=== PATIENT | male | born 1955 | race American Indian/Alaskan Native ===

== ENCOUNTER 2016-07-22 10:25 | Emergency (ER) | payer MEDICAID ==
[2016-07-22 11:05] VITALS: BP 142/83
[2016-07-22 11:43] LABS: Basophils % (Auto) 0.7 % (0.0-1.8); Eosinophils % (Auto) 0.1 % (0.0-4.3); Hematocrit 43.1 % (35.5-45.6); Hemoglobin 14.7 gm/dl (11.8-15.2); Mean Corpuscular HGB Conc 34 % (32-34); Mean Corpuscular Hemoglobin 34 pg (28-32); Mean Corpuscular Volume 99 fl (84-94); Platelet Count 167 K/mm3 (140-440); Red Blood Count 4.37 M/mm3 (3.65-5.03); Red Cell Distribution Width 13.3 % (13.2-15.2); White Blood Count 8.4 K/mm3 (4.5-11.0)
--- NOTE | 2016-07-22 11:47 | XRay Report ---
CHEST TWO VIEWS: 07/22/16 10:25:00 CLINICAL: Chest pain and productive cough. COMPARISON: None FINDINGS: Normal heart and pulmonary vasculature. The lungs are normally expanded and clear.The bones and soft tissues are unremarkable. IMPRESSION: Normal chest.
[2016-07-22 11:59] LABS: Anion Gap 21 mmol/L; BUN/Creatinine Ratio 10.47; Blood Urea Nitrogen 22 mg/dL (9-20); Carbon Dioxide 22 mmol/L (22-30); Chloride 88.5 mmol/L (98-107); Glucose 232 mg/dL (75-100); Potassium 4.6 mmol/L (3.6-5.0); Sodium 127 mmol/L (137-145)
== END 2016-07-23 01:00 | disposition left against medical advice (07) ==
LOC: ED 10:25
DX: R11.10 Vomiting, unspecified (principal); R06.02 Shortness of breath; R05 Cough; R07.9 Chest pain, unspecified; Z53.21 Procedure and treatment not carried out due to patient leaving prior to being seen by health care provider
CPT/HCPCS: 36415; 71020; 80048; 84484; 85025; 93005; 93010

== ENCOUNTER 2016-09-05 09:32 | Outpatient (CLI) | payer MEDICAID ==
--- NOTE | 2016-09-06 09:58 | Vascular Lab Report ---
LOWER EXTREMITY VENOUS DUPLEX: REASON FOR EXAM: Bilateral leg edema. COMMENTS ON THE RIGHT: All veins visualized are freely compressible without evidence of internal echogenicity. Flow is spontaneous and phasic throughout. COMMENTS ON THE LEFT: All veins visualized are freely compressible without evidence of internal echogenicity. Flow is spontaneous and phasic throughout. IMPRESSION: No evidence of acute or chronic deep venous thrombosis in either lower extremity.
== END 2016-09-05 09:33 | disposition home or self-care (01) ==
LOC: VAS 09:32
PROVIDERS: ATTEND Internal Medicine Nephrology
DX: R60.0 Localized edema (principal)
CPT/HCPCS: 93970

== ENCOUNTER 2017-02-11 02:36 | Emergency (ER) | payer MEDICAID ==
[2017-02-11] MEDS ORDERED: PERCOCET 5/325 PO ONE (06:57)
[2017-02-11] MEDS ORDERED: PERCOCET 5/325 ONE (07:02)
--- NOTE | 2017-02-11 07:34 | XRay Report ---
FINAL REPORT EXAM: XR ANKLE 2V RT HISTORY: fall TECHNIQUE: AP and lateral views of the right ankle were obtained. FINDINGS: There is an acute obliquely oriented fracture of the lateral malleolus seen best on the lateral view. There is also a comminuted mildly displaced fracture of the distal diametaphyseal junction of the tibia with mild medial angulation of the distal fracture in. The ankle mortise appears intact. Is a small plantar calcaneal spur. There is soft tissue swelling around the ankle. IMPRESSION: Acute nondisplaced obliquely oriented fracture of the lateral malleolus. Comminuted mildly displaced fracture of the distal diametaphyseal junction of the tibia with medial angulation of the distal fracture end. A right tibia-fibula film series recommended to exclude a more proximal fracture of the right lower extremity.
--- NOTE | 2017-02-11 07:36 | Emergency Department Report ---
Chief Complaint: Extremity Injury, Lower Stated Complaint: FALL Time Seen by Provider: 02/11/17 06:50 - HPI History of Present Illness: Patient here reported that he fell this evening and is complaining a right ankle pain. He said pain is 10 out of 10. Patient is diabetic with high blood pressure. - ROS Review of Systems: All systems are negative unless stated in HPI above. - Exam Vital Signs: Vital Signs 02/11/17 02/11/17 03:12 03:40 Temperature 98.8 F 98.8 F Pulse Rate 111 H 110 H Respiratory 18 16 Rate Blood Pressure 158/86 158/86 O2 Sat by Pulse 94 98 Oximetry Physical Exam: Gen.: This is a 62-year-old male well-nourished well-developed appears to be in pain to right leg. Extremity: +2 bounding pulses 2 DP and PT. Mild swelling around ankle and tenderness to palpate. Patient with pain with range of motion. No signs of compartment syndrome at present. MSE screening note: Focused history and physical exam performed. Due to findings the following was ordered:see MDM ED Medical Decision Making - Medical Decision Making MDM: Patient screened by provider in triage area. Appropriate protocol initiated and patient to be seen in main . X-ray tib-fib showed patient with fracture awaiting radiology report. Patient given Percocet 5/325 2 tablets emergency room for pain. ED [place] [facility] [place] Condition: Stable Referrals: PRIMARY CARE, [Primary Care Provider] - 3-5 Days
[2017-02-11] MEDS ORDERED: ZOFRAN IM ONE (08:12)
[2017-02-11] MEDS ORDERED: TORADOL IM ONE (08:12)
[2017-02-11] MEDS ORDERED: DILAUDID IM ONE (08:12)
--- NOTE | 2017-02-11 08:22 | XRay Report ---
FINAL REPORT EXAM: XR TIBIA FIBULA 2V RT HISTORY: rt ankle fracture.Rt tib/fib radiologist recom TECHNIQUE: Right leg, two views PRIORS: None. FINDINGS: There is an oblique fracture involving the proximal fibula. This involves the meta diaphyseal junction and is mildly displaced laterally. There is an oblique fracture involving the distal tibial shaft which is mildly displaced posterolaterally. There also an oblique fracture through the distal fibula. IMPRESSION: Mildly displaced fracture of proximal fibular shaft. Mildly displaced fracture of distal tibial shaft. Nondisplaced fracture of distal fibula.
--- NOTE | 2017-02-11 08:31 | Emergency Department Report ---
ED Lower Extremity HPI - General Chief Complaint: Extremity Injury, Lower Stated Complaint: FALL Time Seen by Provider: 02/11/17 07:38 Source: patient Mode of arrival: Wheelchair Limitations: No Limitations - History of Present Illness MD Complaint: leg injury - Related Data Home Medications Medication Instructions Recorded Confirmed Last Taken Diltiazem Cd [Cardizem CD] 320 mg PO QDAY 03/12/14 03/20/14 03/20/14 Insulin Detemir [Levemir Flexpen] 30 unit SQ BID 03/12/14 03/20/14 03/19/14 cloNIDine [Catapres] 0.1 mg PO BID 03/12/14 03/20/14 03/20/14 Allergies Allergy/AdvReac Type Severity Reaction Status Date / Time No Known Drug Allergies Allergy n/a Verified 03/20/14 08:26 ED Review of Systems ROS: Stated complaint: FALL Other details as noted in HPI ED Past Medical Hx - Past Medical History Previous Medical History?: Yes Hx Hypertension: Yes (2008) Hx Diabetes: Yes (IDDM 2008) - Surgical History Past Surgical History?: No - Social History Smoking Status: Never Smoker Substance Use Type: None - Medications Home Medications: Home Medications Medication Instructions Recorded Confirmed Last Taken Type Diltiazem Cd [Cardizem CD] 320 mg PO QDAY 03/12/14 03/20/14 03/20/14 History Insulin Detemir [Levemir Flexpen] 30 unit SQ BID 03/12/14 03/20/14 03/19/14 History cloNIDine [Catapres] 0.1 mg PO BID 03/12/14 03/20/14 03/20/14 History ED Physical Exam - General Limitations: No Limitations ED Course Vital Signs 02/11/17 02/11/17 02/11/17 03:12 03:40 07:28 Temperature 98.8 F 98.8 F Pulse Rate 111 H 110 H Respiratory 18 16 18 Rate Blood Pressure 158/86 158/86 O2 Sat by Pulse 94 98 Oximetry Critical care attestation.: If time is entered above; I have spent that time in minutes in the direct care of this critically ill patient, excluding procedure time. ED Disposition Disposition: ELOPED Condition: Stable Referrals: PRIMARY CARE, [Primary Care Provider] - 3-5 Days
--- NOTE | 2017-02-11 08:31 | Emergency Department Report ---
HPI - General Chief Complaint: Extremity Injury, Lower Time Seen by Provider: 02/11/17 07:38 - HPI HPI: Room 37 The patient is a 62-year-old male presenting with a chief complaint of right leg pain after fall. The patient states this morning at 01:30 he tripped and fell down approximately 5 stairs. Patient complains of pain in his right lower extremity and low back. Patient denies loss of consciousness. The patient currently gives his pain a score of 10/10 Location: [see above] Duration: Constant since 01:30 Quality: Pain Severity:10 Modifying factors: Movement increases pain Context: [see above] Mode of transportation: [not driving] ED Past Medical Hx - Past Medical History Previous Medical History?: Yes Hx Hypertension: Yes (2008) Hx Diabetes: Yes (IDDM 2008) - Surgical History Past Surgical History?: No - Family History Family history: no significant - Social History Smoking Status: Never Smoker Substance Use Type: None - Medications Home Medications: Home Medications Medication Instructions Recorded Confirmed Last Taken Type Diltiazem Cd [Cardizem CD] 320 mg PO QDAY 03/12/14 03/20/14 03/20/14 History Insulin Detemir [Levemir Flexpen] 30 unit SQ BID 03/12/14 03/20/14 03/19/14 History cloNIDine [Catapres] 0.1 mg PO BID 03/12/14 03/20/14 03/20/14 History oxyCODONE /ACETAMINOPHEN [Percocet 1 - 2 tab PO Q6HR PRN #30 tablet 02/11/17 Unknown Rx 5/325] ED Review of Systems ROS: Stated complaint: FALL Other details as noted in HPI Comment: All other systems reviewed and negative Constitutional: denies: chills, fever Eyes: denies: eye pain, eye discharge, vision change ENT: denies: ear pain, throat pain Respiratory: denies: cough, shortness of breath, wheezing Cardiovascular: denies: chest pain, palpitations Endocrine: no symptoms reported Gastrointestinal: denies: abdominal pain, nausea, diarrhea Genitourinary: denies: urgency, dysuria Musculoskeletal: back pain, arthralgia, myalgia Skin: denies: rash, lesions Neurological: denies: headache, weakness, paresthesias Psychiatric: denies: anxiety, depression Hematological/Lymphatic: denies: easy bleeding, easy bruising Physical Exam - Physical Exam Vital Signs: Vital Signs 02/11/17 02/11/17 02/11/17 03:12 03:40 07:28 Temperature 98.8 F 98.8 F Pulse Rate 111 H 110 H Respiratory 18 16 18 Rate Blood Pressure 158/86 158/86 O2 Sat by Pulse 94 98 Oximetry Physical Exam: GENERAL: The patient is well-developed well-nourished male lying on stretcher not appearing to be in acute distress. [] HEENT: Normocephalic. Atraumatic. NECK: Trachea midline CHEST/LUNGS: There is no respiratory distress noted. HEART/CARDIOVASCULAR: Regular. There is no tachycardia. Dopplerable right DP. Normal capillary refill SKIN: There is an abrasion to the distal right veloz but no lacerations. There is no diaphoresis. NEURO: The patient is awake, alert, and oriented. The patient is cooperative. Patient able to move toes of right foot without difficulty. Patient has sensation to light touch of the right foot MUSCULOSKELETAL: There is tenderness to palpation of the distal right lower extremity ED Course Vital Signs 02/11/17 02/11/17 02/11/17 03:12 03:40 07:28 Temperature 98.8 F 98.8 F Pulse Rate 111 H 110 H Respiratory 18 16 18 Rate Blood Pressure 158/86 158/86 O2 Sat by Pulse 94 98 Oximetry ED Medical Decision Making - Radiology Data Radiology results: image reviewed (right ankle x-ray, right tib-fib x-ray, lumbar spine x-ray) interpreted by me: Right ankle x-ray spiral fracture distal tibia and fibula Right tib-fib [id number] fibula fracture. Spiral fracture of the distal tibia and fibula Lumbar spine x-ray-no acute fracture - Differential Diagnosis ankle sprain, ankle fracture, lumbar fracture, lumbar strain Critical care attestation.: If time is entered above; I have spent that time in minutes in the direct care of this critically ill patient, excluding procedure time. ED Disposition Clinical Impression: [place] fracture of right lower extremity, Acute right ankle pain Disposition: TO HOME OR SELFCARE Is pt being admited?: No Does the pt Need Aspirin: No Condition: Stable Instructions: Ankle Fracture (ED) Additional Instructions: Return to the emergency department immediately should you develop worsening symptoms, fever, inability to tolerate food or liquid or any other concerns. Prescriptions: oxyCODONE /ACETAMINOPHEN [Percocet 5/325] 1 - 2 tab PO Q6HR PRN #30 tablet PRN Reason: Pain Referrals: PRIMARY CARE, [Primary Care Provider] - 3-5 Days JOHNATHON CA MD [Staff Physician] - [facility] (Dr. Ca is an orthopedic surgeon. Please follow up with him for further evaluation) Time of Disposition: 09:27
--- NOTE | 2017-02-11 09:33 | XRay Report ---
LUMBOSACRAL SPINE, 3 VIEWS: History: Back pain after fall. Findings: The vertebral bodies, disk spaces and posterior elements are intact. No compression deformity or malalignment. Mild multilevel degenerative endplate changes and facet arthropathy are identified. The SI joints are symmetric and unremarkable. Impression: Mild lumbar spondylosis. No acute injury is appreciated.
[2017-02-11 12:05] VITALS: BP 154/82
== END 2017-02-11 12:03 | disposition home or self-care (01) ==
LOC: ED 02:36
DX: S82.861A Displaced Maisonneuve's fracture of right leg, initial encounter for closed fracture (principal); M54.5 Low back pain; I10 Essential (primary) hypertension; E11.9 Type 2 diabetes mellitus without complications; Z79.4 Long term (current) use of insulin; W01.0XXA Fall on same level from slipping, tripping and stumbling without subsequent striking against object, initial encounter; Y93.89 Activity, other specified; Y92.89 Other specified places as the place of occurrence of the external cause; Y99.8 Other external cause status
CPT/HCPCS: 29505; 72100; 73590; 73600; 96372; 99283; J1170; J1885; J2405

== ENCOUNTER 2017-02-19 09:49 | Inpatient (IN) | payer MEDICAID ==
[~2017-02-19 09:49] MED LIST: ANCEF/STERILE WATER 2 GM/20 ML IV NR; PEPCID PO NR; SUBLIMAZE IV ONE; VERSED IV NR
[2017-02-19 10:52] LABS: Basophils % (Auto) 0.7 % (0.0-1.8); Eosinophils % (Auto) 1.4 % (0.0-4.3); Hemoglobin 15.4 gm/dl (11.8-15.2); Mean Corpuscular HGB Conc 34 % (32-34); Mean Corpuscular Hemoglobin 33 pg (28-32); Mean Corpuscular Volume 99 fl (84-94); Platelet Count 289 K/mm3 (140-440); Red Blood Count 4.65 M/mm3 (3.65-5.03); Red Cell Distribution Width 13.5 % (13.2-15.2); White Blood Count 6.8 K/mm3 (4.5-11.0)
[2017-02-19] MEDS: NACL 0.9% 1000 ML 1,000 ML IV SCH (10:58)
--- NOTE | 2017-02-19 10:58 | Anesthesia Consultation ---
Anesthesia Consult and Med Hx Date of service: 02/19/17 - Airway Anesthetic Teeth Evaluation: Dentures ROM Head & Neck: Adequate Mental/Hyoid Distance: Adequate Mallampati Class: Class III (small mouth opening) Intubation Access Assessment: Possibly Difficult - Pulmonary Exam CTA: Yes - Cardiac Exam Cardiac Exam: RRR - Pre-Operative Health Status ASA Pre-Surgery Classification: ASA3 Proposed Anesthetic Plan: General Nerve Block: Pop - Pulmonary Hx Smoking: Yes (STOPPED X 23 YRS , 1 PPD X 22 YRS) Hx Sleep Apnea: No (ANGUS PRE SCREEN HIGH RISK) - Cardiovascular System Hx Hypertension: Yes (2008) - Central Nervous System Hx Back Pain: Yes Hx Psychiatric Problems: No - Endocrine Hx Insulin Dependent Diabetes: Yes - Other Systems Hx Substance Use: Yes (CLEAN X 30 YRS) Hx Cancer: No Hx Obesity: Yes (BMI 35.4)
--- NOTE | 2017-02-19 10:58 | Anesthesia Day of Surgery ---
Anesthesia Day of Surgery - Day of Surgery Patient Examined: Yes Patient H&P Reviewed: Yes Patient is NPO: Yes
[2017-02-19] MEDS ORDERED: ZOFRAN IV PRN ×2 (10:59→21:19)
[2017-02-19] MEDS ORDERED: DIPRIVAN 10 MG/ML IV ONE (11:00)
[2017-02-19] MEDS ORDERED: XYLOCAINE MPF 2% ONE (11:00)
[2017-02-19] MEDS ORDERED: XYLOCAINE 1% 20 mL ONE (11:04)
[2017-02-19] MEDS ORDERED: MARCAINE-EPI/PF 0.5%-1:200,000 INFILTRATI ONE (11:04)
[2017-02-19] MEDS ORDERED: DECADRON ONE (11:04)
[2017-02-19 11:14] LABS: Albumin 3.7 g/dL (3.9-5); Albumin/Globulin Ratio 0.9 %; Bilirubin,Total 0.7 mg/dL (0.1-1.2); Calcium 9.3 mg/dL (8.4-10.2); Chloride 96.1 mmol/L (98-107); Potassium 5.7 mmol/L (3.6-5.0); Total Protein 7.8 g/dL (6.3-8.2)
[2017-02-19] MEDS ORDERED: SUBLIMAZE IV ONE (12:00)
--- NOTE | 2017-02-19 12:14 | History and Physical Report ---
History of Present Illness Date of examination: 02/19/17 Chief complaint: right leg pain History of present illness: 62 y/o male with c/o right leg pain and swelling after falling down stairs last week at home, he was seen in the ER where xrays taken revealed a displaced distal third tibia-fibula fracture....no other c/o's noted Medications and Allergies Allergies Allergy/AdvReac Type Severity Reaction Status Date / Time No Known Drug Allergies Allergy n/a Verified 03/20/14 08:26 Home Medications Medication Instructions Recorded Confirmed Last Taken Type Diltiazem Cd [Cardizem CD] 320 mg PO QDAY 03/12/14 02/19/17 02/19/17 07:30 History Insulin Detemir [Levemir Flexpen] 30 unit SQ BID 03/12/14 02/19/17 02/18/17 18: 00 History cloNIDine [Catapres] 0.1 mg PO BID 03/12/14 02/19/17 02/19/17 07:30 History oxyCODONE /ACETAMINOPHEN [Percocet 1 - 2 tab PO Q6HR PRN #30 tablet 02/11/1701/2802/19/17 01:00 Rx 5/325] Aspirin [Adult Low Dose Aspirin EC] 81 mg PO DAILY 02/14/17 02/19/17 02/14/17 11 :00 History Simvastatin [Zocor TAB] 20 mg PO DAILY 02/19/17 02/19/17 02/19/17 07:30 History glipiZIDE [Glipizide] 10 mg PO BID 02/19/17 02/19/17 02/19/17 07:30 History Active Meds: Active Medications Cefazolin Sodium (Ancef/Sterile Water 2 Gm/20 Ml) 2 gm IV PREOP NR Stop: 02/19/17 23:59 Hydromorphone HCl (Dilaudid) 0.5 mg IV Q10MIN PRN PRN Reason: Pain , Severe (7-10) Stop: 02/22/17 11:00 Sodium Chloride (Nacl 0.9% 1000 Ml) 1,000 mls @ 75 mls/hr IV DIRECT TIGIST Last Admin: 02/19/17 10:58 Dose: 75 mls/hr Midazolam HCl (Versed) 2 mg IV PREOP NR Stop: 02/19/17 23:59 Last Admin: 02/19/17 11:27 Dose: 2 mg Physical Examination - Physical exam Narrative exam: At the right leg - moderate swelling, moderate deformity distal portion, skin intact, decreased active ROM , good capillary refill Eyes: PERRL ENT: Positive: clear oral mucosa Respiratory effort: normal Respiratory: bilateral: CTA Rhythm: regular Heart Sounds: Positive: S1 & S2 General gastrointestinal: Positive: soft, non-tender, non-distended, normal bowel sounds Integumentary: clear, warm, dry Neurologic: Positive: CNII-XII intact, moves all extremities, gait normal. Negative: focal deficits Results - Labs Result Diagrams: 02/19/17 10:47 02/19/17 10:47 Labs: Abnormal lab results 02/19/17 02/19/17 02/19/17 Range/Units 10:42 10:47 10:47 Hgb 15.4 H (11.8-15.2) gm/dl Hct 46.0 H (35.5-45.6) % MCV 99 H (84-94) fl MCH 33 H (28-32) pg [place] % (Auto) 11.6 H (0.0-7.3) % Sodium 134 L (137-145) mmol/L Potassium 5.7 H (3.6-5.0) mmol/L Chloride 96.1 L (98-107) mmol/L BUN 40 H (9-20) mg/dL Creatinine 2.2 H (0.8-1.5) mg/dL Glucose 241 H (75-100) mg/dL POC Glucose 235 H (70-105) Albumin 3.7 L (3.9-5) g/dL H & H 02/19/17 Range/Units 10:47 Hgb 15.4 H (11.8-15.2) gm/dl Hct 46.0 H (35.5-45.6) % All other labs normal. Assessment and Plan assessment - right tibial fracture with displacement recommendations - IM nail right tibia
[2017-02-19] MEDS ORDERED: PROVENTIL IH ONE ×2 (13:41→22:39)
[2017-02-19] MEDS ORDERED: PROVENTIL IH NR (14:00)
[2017-02-19] MEDS ORDERED: SODIUM CHLORIDE FLUSH SYRINGE 10 ML IV NR (17:00)
[2017-02-19] MEDS: DILAUDID IV PRN (19:42)
--- NOTE | 2017-02-19 21:15 | Consultation ---
History of Present Illness - Reason for Consult Consult date: 02/19/17 Medical management Requesting physician: JOHNATHON CALL - History of Present Illness [place]: 62 y/o male with c/o right leg pain and swelling after falling down 5 stairs last week at home, he was seen in the ER where xrays taken revealed a displaced distal third tibia-fibula fracture....no other c/o's noted.Was requested to do medical management.Patient has IDDM HTN and HLD.No SOB.No CP. Review of Systems All systems: negative Constitutional: no weight loss, no weight gain, no fever, no chills, no sweats, no night sweats Ears, nose, mouth and throat: no dysphagia, no hoarseness, no sore throat, no swelling in mouth Cardiovascular: chest pain, no orthopnea, no palpitations, no rapid/irregular heart beat, no edema, no syncope, no lightheadedness, no shortness of breath Respiratory: no cough, no cough with sputum, no excessive sputum, no hemoptysis , no shortness of breath, no dyspnea on exertion Gastrointestinal: no abdominal pain, no nausea, no vomiting, no diarrhea, no constipation, no change in bowel habits, no hematemesis Genitourinary Male: no dysuria, no hematuria, no flank pain, no discharge, no urinary frequency, no urinary hesitancy, no nocturia, no incontinence, no erectile dysfunction, no genital pain Rectal: no pain Musculoskeletal: no neck stiffness, no neck pain, no shooting arm pain, no arm numbness/tingling, no low back pain, no shooting leg pain, no leg numbness/ tingling, no redness of joints Integumentary: no rash, no pruritis, no redness, no sores, no wounds, no jaundice, no boils, no blisters Neurological: no seizures, no syncope, no tremors, no ataxia, no lack of coordination Psychiatric: no anxiety, no memory loss, no change in sleep habits, no sleep disturbances, no insomnia, no hypersomnia, no change in appetite, no change in libido, no suicidal ideation, no disorientation, no hallucinations Endocrine: no cold intolerance, no heat intolerance, no polyphagia, no excessive thirst, no polydipsia, no polyuria, no nocturia, no excessive sweating , no flushing, no weight change Hematologic/Lymphatic: no easy bruising, no easy bleeding Allergic/Immunologic: no urticaria, no allergic rhinitis, no wheezing Past History Past Medical History: diabetes, hypertension, hyperlipidemia Past Surgical History: No surgical history Social history: lives with family Family history: hypertension Medications and Allergies Allergies Allergy/AdvReac Type Severity Reaction Status Date / Time No Known Drug Allergies Allergy n/a Verified 03/20/14 08:26 Home Medications Medication Instructions Recorded Confirmed Last Taken Type Diltiazem Cd [Cardizem CD] 320 mg PO QDAY 03/12/14 02/19/17 02/19/17 07:30 History Insulin Detemir [Levemir Flexpen] 100 unit SQ BID 03/12/14 02/19/17 02/18/17 18: 00 History cloNIDine [Catapres] 0.1 mg PO BID 03/12/14 02/19/17 02/19/17 07:30 History oxyCODONE /ACETAMINOPHEN [Percocet 1 - 2 tab PO Q6HR PRN #30 tablet 02/11/1701/2802/19/17 01:00 Rx 5/325] Aspirin [Adult Low Dose Aspirin EC] 81 mg PO DAILY 02/14/17 02/19/17 02/14/17 11 :00 History Insulin Regular, Human [Novolin R] 100 unit SC TID 02/19/17 02/19/17 02/18/17 18 :00 History Simvastatin [Zocor TAB] 20 mg PO DAILY 02/19/17 02/19/17 02/19/17 07:30 History Valacyclovir HCl [Valtrex] 1,000 mg PO DAILY 02/19/17 02/19/17 02/19/17 07:30 History Valsartan/Hydrochlorothiazide 1 each PO DAILY 02/19/17 02/19/17 02/19/17 07:30 History [Valsartan-Hctz 320-12.5 mg Tab] Ziprasidone HCl [Geodon] 80 mg PO DAILY 02/19/17 02/19/17 02/18/17 20:00 History glipiZIDE [Glipizide] 10 mg PO BID 02/19/17 02/19/17 02/19/17 07:30 History traMADol [Ultram] 50 mg PO DAILY PRN 02/19/17 02/19/17 02/18/17 20:00 History Active Meds: Active Medications Cefazolin Sodium (Ancef/Sterile Water 2 Gm/20 Ml) 2 gm IV PREOP NR Stop: 02/19/17 23:59 Hydromorphone HCl (Dilaudid) 0.5 mg IV Q10MIN PRN PRN Reason: Pain , Severe (7-10) Stop: 02/22/17 11:00 Last Admin: 02/19/17 19:42 Dose: 0.5 mg Sodium Chloride (Nacl 0.9% 1000 Ml) 1,000 mls @ 75 mls/hr IV DIRECT TIGIST Last Admin: 02/19/17 10:58 Dose: 75 mls/hr Midazolam HCl (Versed) 2 mg IV PREOP NR Stop: 02/19/17 23:59 Last Admin: 02/19/17 11:27 Dose: 2 mg Sodium Chloride (Sodium Chloride Flush Syringe 10 Ml) 10 ml IV PRN NR Stop: 02/20/17 16:59 Review of Systems All systems: negative Exam - Constitutional Vitals: Temp Pulse Resp BP Pulse Ox 99.5 F 96 H 16 144/69 97 02/19/17 20:00 02/19/17 20:00 02/19/17 20:00 02/19/17 20:00 02/19/17 16:59 General appearance: Present: no acute distress, well-nourished - EENT Eyes: Present: PERRL ENT: hearing intact, clear oral mucosa - Neck Neck: Present: supple, normal ROM - Respiratory Respiratory effort: normal Respiratory: bilateral: CTA - Cardiovascular Heart rate: 70 Rhythm: regular Heart Sounds: Present: S1 & S2. Absent: rub, click - Extremities Extremities: no ischemia, pulses intact, pulses symmetrical, No edema, abnormal (Rt Ankle swollen) Peripheral Pulses: within normal limits - Abdominal General gastrointestinal: Present: soft, non-tender, non-distended, normal bowel sounds Male genitourinary: Present: normal - Integumentary Integumentary: Present: clear, warm, dry - Musculoskeletal Musculoskeletal: gait normal, strength equal bilaterally - Psychiatric Psychiatric: appropriate mood/affect, intact judgment & insight - Neurologic Neurologic: CNII-XII intact, moves all extremities Results - Labs CBC & Chem 7: 02/19/17 10:47 02/19/17 14:06 Labs: Abnormal lab results 02/19/17 02/19/17 02/19/17 Range/Units 10:42 10:47 10:47 Hgb 15.4 H (11.8-15.2) gm/dl Hct 46.0 H (35.5-45.6) % MCV 99 H (84-94) fl MCH 33 H (28-32) pg [place] % (Auto) 11.6 H (0.0-7.3) % Sodium 134 L (137-145) mmol/L Potassium 5.7 H (3.6-5.0) mmol/L Chloride 96.1 L (98-107) mmol/L BUN 40 H (9-20) mg/dL Creatinine 2.2 H (0.8-1.5) mg/dL Glucose 241 H (75-100) mg/dL POC Glucose 235 H (70-105) Albumin 3.7 L (3.9-5) g/dL 02/19/17 02/19/17 Range/Units 12:40 14:06 Hgb (11.8-15.2) gm/dl Hct (35.5-45.6) % MCV (84-94) fl MCH (28-32) pg [place] % (Auto) (0.0-7.3) % Sodium (137-145) mmol/L Potassium 5.8 H 5.4 H (3.6-5.0) mmol/L Chloride (98-107) mmol/L BUN (9-20) mg/dL Creatinine (0.8-1.5) mg/dL Glucose (75-100) mg/dL POC Glucose (70-105) Albumin (3.9-5) g/dL Assessment and Plan - Patient Problems (1) Hyperkalemia Current Visit: Yes Status: Acute Plan to address problem: Kayexalate 30 gm given (2) IDDM (insulin dependent diabetes mellitus) Current Visit: Yes Status: Acute Plan to address problem: Coverae for now b/c of periop period.Resume his home Levemir/Novalog once he resumes eating.Check A1c (3) HTN (hypertension) Current Visit: Yes Status: Chronic Qualifiers: Hypertension type: essential hypertension Qualified Code(s): I10 - Essential (primary) hypertension Plan to address problem: Cont antihypertensives from home-reconciled (4) HLD (hyperlipidemia) Current Visit: Yes Status: Chronic Qualifiers: Hyperlipidemia type: mixed hyperlipidemia Qualified Code(s): E78.2 - Mixed hyperlipidemia Plan to address problem: Statins to continue (5) Closed right ankle fracture Current Visit: Yes Status: Acute Qualifiers: Encounter type: initial encounter Fracture healing: F Qualified Code(s): S82.891A - Other fracture of right lower leg, initial encounter for closed fracture Plan to address problem: For ORIF tomorrow (6) DVT prophylaxis Current Visit: Yes Status: Acute Plan to address problem: on scd's
[2017-02-19] MEDS ORDERED: DULCOLAX PR PRN (21:19)
[2017-02-19] MEDS ORDERED: TYLENOL PO PRN (21:19)
[2017-02-19] MEDS ORDERED: MILK OF MAGNESIA PO PRN (21:19)
[2017-02-19] MEDS ORDERED: CARDIZEM CD PO SCH (22:00)
[2017-02-19] MEDS: CATAPRES PO SCH (22:17)
[2017-02-19] MEDS ORDERED: KIONEX PO ONE (22:29)
[2017-02-19] MEDS: NOVOLOG SUB-Q SCH (23:45)
[2017-02-20] MEDS: PERCOCET 5/325 PO PRN (01:05)
[2017-02-20 06:00] LABS: Albumin 3.5 g/dL (3.9-5); Albumin/Globulin Ratio 0.9 %; Bilirubin,Total 0.7 mg/dL (0.1-1.2); Calcium 9.3 mg/dL (8.4-10.2); Chloride 95.5 mmol/L (98-107); Potassium 5.3 mmol/L (3.6-5.0); Total Protein 7.5 g/dL (6.3-8.2)
[2017-02-20] MEDS ORDERED: CALCIUM GLUCONATE 1,000 MG in NACL 0.9% 100 ML IV ONE (06:05)
[2017-02-20] MEDS ORDERED: KIONEX PO ONE (06:05)
[2017-02-20] MEDS: NOVOLOG SUB-Q SCH ×3 (07:25→20:02)
--- NOTE | 2017-02-20 08:15 | Consultation ---
History of Present Illness - Reason for Consult Consult date: 02/20/17 acute renal failure, chronic renal failure, hyperkalemia - History of Present Illness The patient is a 62 YO AAM with medical history significant for Obesity, DM type 2, HTN, HLD and CKD stage 3 who presented to the ED with right leg pain. He fell and sustained fracture of right tibia and fibula last week for which he was seen in the ED. He presented with worsening pain and difficulty in ambulating. On admission his creatinine was 2.2 with potassium of 5.7. Patient denies any other symptoms. He is followed any [employer] at this time. Past History Past Medical History: diabetes, hypertension, hyperlipidemia Past Surgical History: No surgical history Social history: lives with family Family history: hypertension Medications and Allergies Allergies Allergy/AdvReac Type Severity Reaction Status Date / Time No Known Drug Allergies Allergy n/a Verified 03/20/14 08:26 Home Medications Medication Instructions Recorded Confirmed Last Taken Type Diltiazem Cd [Cardizem CD] 320 mg PO QDAY 03/12/14 02/19/17 02/19/17 07:30 History Insulin Detemir [Levemir Flexpen] 100 unit SQ BID 03/12/14 02/19/17 02/18/17 18: 00 History cloNIDine [Catapres] 0.1 mg PO BID 03/12/14 02/19/17 02/19/17 07:30 History oxyCODONE /ACETAMINOPHEN [Percocet 1 - 2 tab PO Q6HR PRN #30 tablet 02/11/1701/2802/19/17 01:00 Rx 5/325] Aspirin [Adult Low Dose Aspirin EC] 81 mg PO DAILY 02/14/17 02/19/17 02/14/17 11 :00 History Insulin Regular, Human [Novolin R] 100 unit SC TID 02/19/17 02/19/17 02/18/17 18 :00 History Simvastatin [Zocor TAB] 20 mg PO DAILY 02/19/17 02/19/17 02/19/17 07:30 History Valacyclovir HCl [Valtrex] 1,000 mg PO DAILY 02/19/17 02/19/17 02/19/17 07:30 History Valsartan/Hydrochlorothiazide 1 each PO DAILY 02/19/17 02/19/17 02/19/17 07:30 History [Valsartan-Hctz 320-12.5 mg Tab] Ziprasidone HCl [Geodon] 80 mg PO DAILY 02/19/17 02/19/17 02/18/17 20:00 History glipiZIDE [Glipizide] 10 mg PO BID 02/19/17 02/19/17 02/19/17 07:30 History traMADol [Ultram] 50 mg PO DAILY PRN 02/19/17 02/19/17 02/18/17 20:00 History Active Meds: Active Medications Acetaminophen (Tylenol) 650 mg PO Q4H PRN PRN Reason: Pain MILD(1-3)/Fever >100.5/WADE Bisacodyl (Dulcolax) 10 mg [place] QDAY PRN PRN Reason: Constipation unrelieved by MOM Clonidine HCl (Catapres) 0.1 mg PO BID [facility] Last Admin: 02/19/17 22:17 Dose: 0.1 mg Diltiazem HCl (Cardizem Cd) 300 mg PO QDAY [facility] Hydromorphone HCl (Dilaudid) 0.5 mg IV Q10MIN PRN PRN Reason: Pain , Severe (7-10) Stop: 02/22/17 11:00 Last Admin: 02/19/17 19:42 Dose: 0.5 mg Hydromorphone HCl (Dilaudid) 1 mg IV Q3H PRN PRN Reason: Pain , Severe (7-10) Sodium Chloride (Nacl 0.9% 1000 Ml) 1,000 mls @ 100 mls/hr IV DIRECT [facility] Last Admin: 02/19/17 10:58 Dose: 75 mls/hr Insulin Aspart (Novolog) 0 units SUB-Q Q6HR [facility] PRN Reason: Protocol Last Admin: 02/20/17 07:25 Dose: Not Given Magnesium Hydroxide (Milk Of Magnesia) 30 ml PO Q4H PRN PRN Reason: Constipation Ondansetron HCl (Zofran) 4 mg IV Q8H PRN PRN Reason: N/V unrelieved by Reglan Oxycodone/Acetaminophen (Percocet 5/325) 2 tab PO Q6HR PRN PRN Reason: Pain Last Admin: 02/20/17 01:05 Dose: 2 tab Sodium Chloride (Sodium Chloride Flush Syringe 10 Ml) 10 ml IV PRN NR Stop: 02/20/17 16:59 Valacyclovir HCl (Valtrex) 1,000 mg PO DAILY [facility] Review of Systems Constitutional: no weight loss, no weight gain, no anorexia, no weakness, no poor appetite Ears, nose, mouth and throat: no epistaxis Cardiovascular: high blood pressure, leg edema, no chest pain, no orthopnea, no palpitations, no edema, no syncope, no lightheadedness, no shortness of breath Respiratory: no cough, no hemoptysis, no shortness of breath Gastrointestinal: diarrhea (from kayexalate), no abdominal pain, no nausea, no vomiting, no BRBPR, no melena Genitourinary Male: no dysuria, no hematuria Rectal: no bleeding Musculoskeletal: other (right leg pain), no redness of joints Integumentary: no sores, no wounds, no jaundice Neurological: no paralysis, no weakness, no tingling, no syncope Psychiatric: no disorientation, no confusion Hematologic/Lymphatic: no easy bruising, no easy bleeding Exam - Vital Signs Vital signs: Vital Signs Temp Pulse Resp BP Pulse Ox 98.5 F 94 H 18 147/74 96 02/19/17 10:25 02/19/17 10:25 02/19/17 10:25 02/19/17 10:25 02/19/17 10:25 - General Appearance General appearance: well-developed, well-nourished, appears stated age, obese, other (no distress) EENT: ATNC, PERRL, mucous membranes moist, hearing intact, vision intact Neck: Present: neck supple, trachea midline Respiratory: Clear to Ascultation Heart: regular, S1S2, no murmurs Gastrointestinal: Present: normoactive bowel sounds, obese. Absent: tenderness , distended Integumentary: no rash Neurologic: no focal deficit, no asterixis, alert and oriented x3, CN 3-12 intact Musculoskeletal: Present: other (right LE trace edema) Psychiatric: mood/affect appropriate, cooperative Results - Lab Results 02/23/17 03:51 02/23/17 03:51 Most recent lab results Calcium 9.3 mg/dL (8.4-10.2) 02/20/17 05:14 - Image Kidney/bladder ultrasound: pending Assessment and Plan - Patient Problems (1) NAVARRO (acute kidney injury) Current Visit: Yes Status: Acute Plan to address problem: Acute kidney injury is most likely hemodynamically mediated. CKD stage 3. Continue IV fluids. (2) Hyperkalemia Current Visit: Yes Status: Acute Plan to address problem: Kayexalate. Monitor K levels. (3) Closed right ankle fracture Current Visit: Yes Status: Acute Qualifiers: Encounter type: initial encounter Fracture healing: F Qualified Code(s): S82.891A - Other fracture of right lower leg, initial encounter for closed fracture
[2017-02-20] MEDS: CARDIZEM CD PO SCH (10:04)
[2017-02-20] MEDS: CATAPRES PO SCH ×2 (10:05→23:34)
[2017-02-20] MEDS: VALTREX PO SCH (10:06)
[2017-02-20 11:25] LABS: Calcium 9.2 mg/dL (8.4-10.2); Chloride 98.5 mmol/L (98-107); Potassium 4.9 mmol/L (3.6-5.0)
[2017-02-20] MEDS ORDERED: DECADRON ONE (12:41)
[2017-02-20] MEDS ORDERED: CLONIDINE 1,000 MCG/10 ML VIAL EP ONE (12:41)
[2017-02-20] MEDS ORDERED: MARCAINE 0.5% 30 ML INFILTRATI ONE (12:42)
[2017-02-20] MEDS ORDERED: XYLOCAINE 1% 20 mL ONE (12:42)
[2017-02-20] MEDS ORDERED: VERSED IV PRN (12:42)
[2017-02-20] MEDS: NACL 0.9% 1000 ML 1,000 ML IV SCH ×2 (12:51→23:36)
[2017-02-20] MEDS ORDERED: DILAUDID ONE ×2 (13:00→16:38)
[2017-02-20] MEDS ORDERED: PEPCID PO NR (13:00)
[2017-02-20] MEDS ORDERED: SUBLIMAZE IV ONE (13:00)
[2017-02-20] MEDS ORDERED: DIPRIVAN 10 MG/ML IV ONE ×2 (13:00→13:47)
[2017-02-20] MEDS ORDERED: XYLOCAINE MPF 2% ONE (13:01)
[2017-02-20] MEDS ORDERED: PROAIR IH ONE (13:45)
[2017-02-20] MEDS ORDERED: QUELICIN ONE (13:52)
[2017-02-20] MEDS ORDERED: ANCEF/STERILE WATER 2 GM/20 ML IV NR (14:00)
[2017-02-20] MEDS ORDERED: NACL 0.9% 100 ML ONE (14:15)
[2017-02-20] MEDS ORDERED: NEO SYNEPHRINE ONE (14:15)
[2017-02-20] MEDS ORDERED: ROBINUL ONE ×2 (14:47→14:56)
[2017-02-20] MEDS ORDERED: ZOFRAN ONE (14:56)
[2017-02-20] MEDS ORDERED: NORMODYNE IV ONE ×2 (14:56→17:07)
--- NOTE | 2017-02-20 16:23 | Procedure Note ---
Date of procedure: 02/20/17 Pre-op diagnosis: displaced right tibial fracture Post-op diagnosis: same Procedure: Procedure Closed reduction insertion of intramedullary nail right tibia Indications 62-year-old male who fell down the stairs sustaining a displaced right tib-fib fracture one week ago Procedure The patient was brought to the OR after being given a femoral nerve block in preop holding. He was placed on the OR table in a supine position following induction and intubation by anesthesia the patient's right lower extremity was prepped and draped in the usual sterile manner. A timeout procedure was done to identify the patient and the correct operative site, next the leg was exsanguinated bulbar inflammation of the pneumatic tourniquet to 300 mmHg. A vertical incision was made centered over the patellar tendon this was taken down sharply through skin and subcutaneous the patella tendon was incised longitudinally next Gelpi retractors were placed in the wound a large awl was used to enter the proximal tibial canal A guidewire was inserted down the medullary canal and across the fracture site in AP and lateral view was obtained using C-arm fluoroscopy The medullary canal was sequentially reamed to a 12.5 mm diameter nail selection included that a middle diameter of 11 mm x 345 mm long male was then inserted antegrade down the tibial canal again under C-arm control following placement of the nail within the canal and attention was turned to locking screws using the proximal targeting device 2 proximal locking screws were inserted this was followed by placement of 2 distal locking screws. AP and lateral views were obtained and showed good reduction of the fracture placement of the hardware next the wound was copiously irrigated and the patellar tendon and soft tissue were closed in a standard routine fashion. Postop Dressings were applied, he tolerated the procedure there were no complications he was extubated and taken to postanesthesia recovery in a stable condition Anesthesia: DEN Surgeon: JOHNATHON CALL Estimated blood loss: minimal Pathology: none Condition: stable Disposition: PACU
[2017-02-20] MEDS: DILAUDID IV PRN ×3 (16:45→19:53)
--- NOTE | 2017-02-20 16:45 | Post Anesthesia Evaluation ---
- Post Anesthesia Evaluation Patient Participated: Yes Airway Patent: Yes Stable Respiratory Function: Yes Nausea/Vomiting: No Temp > 96.8F: Yes Pain Manageable: Yes Adequeate Hydration: Yes Anesthesia Complications: No Block Receding Appropriately: Not Applicable Patient on Ventilator: No
[2017-02-20] MEDS ORDERED: SODIUM CHLORIDE FLUSH SYRINGE 10 ML IV NR (17:00)
[2017-02-20] MEDS ORDERED: VERSED IV ONE (17:27)
[2017-02-20] MEDS ORDERED: APRESOLINE ONE (17:52)
[2017-02-20] MEDS ORDERED: APRESOLINE IV ONE (18:00)
--- NOTE | 2017-02-20 20:42 | Progress Note ---
Assessment and Plan - Diabetes mellitus type 2: Continue sliding scale insulin, 1999 ADA diet. - Hypertension: Controlled on oral antihypertensives - Displaced Fractured right tibia: For closed reduction with intramedullary nail placement - Hyperkalemia: Corrected - DVT prophylaxis with Lovenox Subjective Date of service: 02/20/17 Principal diagnosis: right tibia fracture, IDDM, Interval history: Having diarrhea from Kayexalate. Objective - Constitutional Vitals: Vital Signs - 12hr 02/20/17 02/20/17 02/20/17 10:00 12:10 13:00 Temperature 98.7 F 98.7 F Pulse Rate 107 H 107 H Respiratory 16 16 Rate Blood Pressure 163/86 163/86 Blood Pressure [Left] O2 Sat by Pulse 98 96 96 Oximetry 02/20/17 02/20/17 02/20/17 13:05 13:10 13:15 Temperature Pulse Rate 103 H 103 H 101 H Respiratory 23 17 19 Rate Blood Pressure 180/83 177/84 171/82 Blood Pressure [Left] O2 Sat by Pulse 99 98 97 Oximetry 02/20/17 02/20/17 02/20/17 13:20 16:30 16:35 Temperature 98.4 F Pulse Rate 104 H 100 H 100 H Respiratory 22 16 16 Rate Blood Pressure 197/82 178/86 163/88 Blood Pressure [Left] O2 Sat by Pulse 99 98 100 Oximetry 02/20/17 02/20/17 02/20/17 16:40 16:45 16:50 Temperature Pulse Rate 103 H 102 H Respiratory 21 18 18 Rate Blood Pressure 172/78 172/80 Blood Pressure [Left] O2 Sat by Pulse 100 100 Oximetry 02/20/17 02/20/17 02/20/17 16:55 17:00 17:15 Temperature Pulse Rate 105 H 104 H 97 H Respiratory 22 18 17 Rate Blood Pressure 180/81 204/93 171/90 Blood Pressure [Left] O2 Sat by Pulse 97 97 95 Oximetry 02/20/17 02/20/17 02/20/17 17:30 17:44 17:45 Temperature Pulse Rate 98 H 100 H 104 H Respiratory 20 18 Rate Blood Pressure 178/91 183/91 155/80 Blood Pressure [Left] O2 Sat by Pulse 98 100 Oximetry 02/20/17 02/20/17 02/20/17 18:00 18:15 18:25 Temperature 98.1 F Pulse Rate 103 H 104 H 105 H Respiratory 19 16 Rate Blood Pressure 152/74 152/74 Blood Pressure [Left] O2 Sat by Pulse 100 100 96 Oximetry 02/20/17 18:34 Temperature 97.6 F Pulse Rate 104 H Respiratory 18 Rate Blood Pressure Blood Pressure 149/73 [Left] O2 Sat by Pulse 96 Oximetry General appearance: Present: no acute distress, well-nourished - EENT Eyes: PERRL, EOM intact Ears: bilateral: normal - Neck Neck: supple, normal ROM - Respiratory Respiratory effort: normal Respiratory: bilateral: CTA - Cardiovascular Rhythm: regular Heart Sounds: Present: S1 & S2. Absent: gallop, rub Extremities: pulses intact, No edema, normal color, Full ROM - Gastrointestinal General gastrointestinal: Present: soft, non-tender - Integumentary Integumentary: clear, warm, dry - Musculoskeletal Musculoskeletal: 1, strength equal bilaterally - Neurologic Neurologic: moves all extremities - Psychiatric Psychiatric: memory intact, appropriate mood/affect, intact judgment & insight - Labs CBC & Chem 7: 02/19/17 10:47 02/20/17 10:37 Labs: Abnormal lab results 02/19/17 02/20/17 02/20/17 Range/Units 21:34 05:08 05:14 Sodium 133 L (137-145) mmol/L Potassium 5.3 H (3.6-5.0) mmol/L Chloride 95.5 L (98-107) mmol/L Carbon Dioxide 20 L (22-30) mmol/L BUN 46 H (9-20) mg/dL Creatinine 2.3 H (0.8-1.5) mg/dL Glucose 254 H (75-100) mg/dL POC Glucose 318 H (70-105) Hemoglobin A1c 8.4 H (4-6) % Albumin 3.5 L (3.9-5) g/dL 02/20/17 02/20/17 02/20/17 Range/Units 05:24 10:37 12:44 Sodium (137-145) mmol/L Potassium (3.6-5.0) mmol/L Chloride (98-107) mmol/L Carbon Dioxide (22-30) mmol/L BUN 44 H (9-20) mg/dL Creatinine 2.1 H (0.8-1.5) mg/dL Glucose 249 H (75-100) mg/dL POC Glucose 263 H 228 H (70-105) Hemoglobin A1c (4-6) % Albumin (3.9-5) g/dL 02/20/17 02/20/17 Range/Units 16:51 18:35 Sodium (137-145) mmol/L Potassium (3.6-5.0) mmol/L Chloride (98-107) mmol/L Carbon Dioxide (22-30) mmol/L BUN (9-20) mg/dL Creatinine (0.8-1.5) mg/dL Glucose (75-100) mg/dL POC Glucose 312 H 267 H (70-105) Hemoglobin A1c (4-6) % Albumin (3.9-5) g/dL
[2017-02-21] MEDS: ANCEF/NS 1 GM/50 ML 1 GM/50 ML BAG IV SCH ×2 (00:03→10:02)
[2017-02-21] MEDS: DILAUDID IV PRN ×5 (00:04→20:55)
[2017-02-21] MEDS: NOVOLOG SUB-Q SCH ×4 (00:21→18:00)
[2017-02-21] MEDS: PERCOCET 5/325 PO PRN ×2 (02:17→12:56)
[2017-02-21 05:07] LABS: Bilirubin,Urine NEG (Negative); Blood,Urine LG (Negative); Ketones,Urine NEG (Negative); Leukocyte Esterase,Urine NEG (Negative); Nitrite,Urine NEG (Negative); RBC,Urine < 1.0 /HPF (0.0-6.0); WBC,Urine < 1.0 /HPF (0.0-6.0)
[2017-02-21 05:09] LABS: Sodium, Urine 10 mEq/L
[2017-02-21 07:54] LABS: Calcium 8.8 mg/dL (8.4-10.2); Chloride 97.7 mmol/L (98-107); Phosphorous 3.7 mg/dL (2.5-4.5); Potassium 4.9 mmol/L (3.6-5.0)
--- NOTE | 2017-02-21 08:29 | Progress Note ---
Assessment and Plan - Patient Problems (1) NAVARRO (acute kidney injury) Current Visit: Yes Status: Acute Plan to address problem: Acute kidney injury superimposed on CKD stage 3. Renal function is improving. Mild metabolic acidosis is noted. Continue IV fluids. (2) Hyperkalemia Current Visit: Yes Status: Acute Plan to address problem: Improved. (3) Closed right ankle fracture Current Visit: Yes Status: Acute Qualifiers: Encounter type: initial encounter Fracture healing: F Qualified Code(s): S82.891A - Other fracture of right lower leg, initial encounter for closed fracture Plan to address problem: S/p surgery. Subjective Date of service: 02/21/17 Principal diagnosis: right tibia fracture, IDDM, Interval history: No new complaint. Objective - Vital Signs Vital signs: Vital Signs - 12hr 02/20/17 02/20/17 02/20/17 21:52 23:34 23:45 Temperature 98.6 F Pulse Rate 113 H 111 H Respiratory 20 Rate Blood Pressure 159/75 157/74 O2 Sat by Pulse 97 94 Oximetry 02/21/17 02/21/17 02/21/17 04:39 07:24 07:25 Temperature 98.6 F 98.6 F Pulse Rate 100 H 99 H 99 H Respiratory 20 18 Rate Blood Pressure 161/93 166/76 O2 Sat by Pulse 96 97 97 Oximetry - General Appearance General appearance: well-developed, well-nourished, appears stated age, obese, other (no distress) EENT: ATNC, PERRL, mucous membranes moist, hearing intact, vision intact Neck: supple Respiratory: Present: Clear to Ascultation Cardiology: regular, S1S2, no murmurs Gastrointestinal: normoactive bowel sounds, no tenderness, no distended, obese Integumentary: no rash Neurologic: no focal deficit, no asterixis, alert and oriented x3, CN 3-12 intact Musculoskeletal: other (trace edema of right leg, dressing noted) Psychiatric: mood/affect appropriate, cooperative - Lab 02/23/17 03:51 02/23/17 03:51 Most recent lab results Calcium 8.8 mg/dL (8.4-10.2) 02/21/17 06:50 Phosphorus 3.70 mg/dL (2.5-4.5) 02/21/17 06:50 Urine Creatinine < 4.2 mg/dL (0.1-20.0) 02/21/17 Unknown Urine Sodium 10 mEq/L 02/21/17 Unknown
--- NOTE | 2017-02-21 09:44 | XRay Report ---
RIGHT TIBIA AND FIBULA, 2 VIEWS History: Internal fixation of a right tibial fracture, pain. Findings: AP and lateral fluoroscopic images of the right tibia and fibula were obtained during surgery. The images demonstrate placement of an intramedullary carolee which secures a comminuted distal tibial fracture. Alignment is near-anatomic. An oblique fracture of the proximal fibula was not fixated but remains in near-anatomic alignment. Please correlate with the procedural report by Dr. Ca. Impression: Internal fixation of a distal right tibial fracture.
[2017-02-21] MEDS: VALTREX PO SCH (10:03)
[2017-02-21] MEDS: CATAPRES PO SCH ×2 (10:03→22:40)
[2017-02-21] MEDS: CARDIZEM CD PO SCH (10:03)
--- NOTE | 2017-02-21 14:22 | Ultrasound Report ---
Renal ultrasound: Acute renal insufficiency. Right renal length is 10.6 cm and the left 11.7 cm. Both renal contours are lobulated. Both kidneys are mildly echogenic. No hydronephrosis, renal mass, or calculus identified. Imaging of the urinary bladder is unremarkable. Impression: Findings consistent with medical renal disease.
[2017-02-21] MEDS ORDERED: DILAUDID IV PRN (16:49)
--- NOTE | 2017-02-21 17:57 | Progress Note ---
Assessment and Plan - Diabetes mellitus type 2: Continue sliding scale insulin, 1999 ADA diet. - Hypertension: Controlled on oral antihypertensives - Acute on Chronic renal failure improving with iv hydration and avoiding nephrotoxic agents - Displaced Fractured right tibia: Had closed reduction with intramedullary nail placement - Hyperkalemia: Corrected - DVT prophylaxis with Lovenox Subjective Date of service: 02/21/17 Principal diagnosis: right tibia fracture, IDDM, Interval history: No new complaint. Lying quietly in bed. Objective - Constitutional Vitals: Vital Signs - 12hr 02/21/17 02/21/17 02/21/17 07:24 07:25 10:03 Temperature 98.6 F Pulse Rate 99 H 99 H 99 H Respiratory 18 Rate Blood Pressure 166/76 166/76 Blood Pressure [Left] O2 Sat by Pulse 97 97 Oximetry 02/21/17 02/21/17 12:00 16:52 Temperature 98 F 98.2 F Pulse Rate 98 H 101 H Respiratory 20 20 Rate Blood Pressure Blood Pressure 142/88 146/80 [Left] O2 Sat by Pulse Oximetry General appearance: Present: no acute distress, well-nourished - EENT Eyes: PERRL, EOM intact - Neck Neck: supple, normal ROM - Respiratory Respiratory effort: normal Respiratory: bilateral: CTA - Cardiovascular Rhythm: regular Heart Sounds: Present: S1 & S2. Absent: gallop, rub Extremities: pulses intact, No edema, normal color, Full ROM - Gastrointestinal General gastrointestinal: Present: soft, non-tender, non-distended, normal bowel sounds - Integumentary Integumentary: clear, warm - Musculoskeletal Musculoskeletal: strength equal bilaterally, other (fracture right tibia s/p close reduction with ) - Neurologic Neurologic: moves all extremities - Psychiatric Psychiatric: memory intact, appropriate mood/affect, intact judgment & insight - Labs CBC & Chem 7: 02/19/17 10:47 02/21/17 06:50 Labs: Abnormal lab results 02/20/17 02/20/17 02/21/17 Range/Units 18:35 23:47 05:34 Sodium (137-145) mmol/L Chloride (98-107) mmol/L Carbon Dioxide (22-30) mmol/L BUN (9-20) mg/dL Creatinine (0.8-1.5) mg/dL Glucose (75-100) mg/dL POC Glucose 267 H 338 H 255 H (70-105) PTH Intact (15-65) pg/mL 02/21/17 02/21/17 02/21/17 Range/Units 06:50 06:50 12:17 Sodium 134 L (137-145) mmol/L Chloride 97.7 L (98-107) mmol/L Carbon Dioxide 20 L (22-30) mmol/L BUN 40 H (9-20) mg/dL Creatinine 1.8 H (0.8-1.5) mg/dL Glucose 253 H (75-100) mg/dL POC Glucose 244 H (70-105) PTH Intact 195.0 H (15-65) pg/mL 02/21/17 Range/Units 17:25 Sodium (137-145) mmol/L Chloride (98-107) mmol/L Carbon Dioxide (22-30) mmol/L BUN (9-20) mg/dL Creatinine (0.8-1.5) mg/dL Glucose (75-100) mg/dL POC Glucose 261 H (70-105) PTH Intact (15-65) pg/mL
[2017-02-21] MEDS: NACL 0.9% 1000 ML 1,000 ML IV SCH (20:50)
[2017-02-22] MEDS: NOVOLOG SUB-Q SCH ×4 (02:10→23:49)
[2017-02-22 04:43] LABS: Calcium 8.7 mg/dL (8.4-10.2); Chloride 100.8 mmol/L (98-107); Potassium 4.9 mmol/L (3.6-5.0)
--- NOTE | 2017-02-22 08:44 | Progress Note ---
Assessment and Plan - Patient Problems (1) NAVARRO (acute kidney injury) Current Visit: Yes Status: Acute Plan to address problem: Acute kidney injury superimposed on CKD stage 3. Renal function is improving. Mild metabolic acidosis is noted. Continue IV fluids. (2) Hyperkalemia Current Visit: Yes Status: Acute Plan to address problem: Improved. (3) Closed right ankle fracture Current Visit: Yes Status: Acute Qualifiers: Encounter type: initial encounter Fracture healing: F Qualified Code(s): S82.891A - Other fracture of right lower leg, initial encounter for closed fracture Plan to address problem: S/p surgery. (4) HTN (hypertension) Current Visit: Yes Status: Chronic Qualifiers: Hypertension type: essential hypertension Qualified Code(s): I10 - Essential (primary) hypertension Subjective Date of service: 02/22/17 Principal diagnosis: right tibia fracture, IDDM, Interval history: No new complaint. Objective - Vital Signs Vital signs: Vital Signs - 12hr 02/21/17 02/21/17 02/22/17 22:34 22:40 00:07 Temperature 99.8 F H Pulse Rate 111 H 113 H Respiratory 20 Rate Blood Pressure 146/91 146/91 Blood Pressure [Left] O2 Sat by Pulse 97 93 Oximetry 02/22/17 02/22/17 02/22/17 00:08 00:42 05:13 Temperature 99.0 F Pulse Rate 116 H 107 H 102 H Respiratory 18 Rate Blood Pressure Blood Pressure 140/89 [Left] O2 Sat by Pulse 96 98 98 Oximetry 02/22/17 02/22/17 05:28 07:52 Temperature 99.6 F 99.1 F Pulse Rate 107 H Respiratory 18 Rate Blood Pressure 187/86 Blood Pressure [Left] O2 Sat by Pulse 98 Oximetry - General Appearance General appearance: well-developed, well-nourished, appears stated age, obese, other (no distress) EENT: ATNC, PERRL, mucous membranes moist, hearing intact, vision intact Neck: supple Respiratory: Present: Clear to Ascultation Cardiology: regular, S1S2, no murmurs Gastrointestinal: normoactive bowel sounds, no tenderness, no distended, obese Integumentary: no rash Neurologic: no focal deficit, no asterixis, alert and oriented x3, CN 3-12 intact Musculoskeletal: other (left edematous, dressing noted) Psychiatric: mood/affect appropriate, cooperative - Lab 02/23/17 03:51 02/23/17 03:51 Most recent lab results Calcium 8.7 mg/dL (8.4-10.2) 02/22/17 04:05 Phosphorus 3.70 mg/dL (2.5-4.5) 02/21/17 06:50 Urine Creatinine < 4.2 mg/dL (0.1-20.0) 02/21/17 Unknown Urine Sodium 10 mEq/L 02/21/17 Unknown
[2017-02-22] MEDS: CARDIZEM CD PO SCH (10:18)
[2017-02-22] MEDS: CATAPRES PO SCH ×2 (10:20→22:09)
[2017-02-22] MEDS: VALTREX PO SCH (10:20)
[2017-02-22] MEDS: PERCOCET 5/325 PO PRN ×3 (10:21→18:37)
--- NOTE | 2017-02-22 15:36 | Progress Note ---
Assessment and Plan assessment - s/p IM nailing right tibia plan - awaiting transfer to [facility] Subjective Date of service: 02/22/17 Principal diagnosis: right tibia fracture, IDDM, Interval history: no c/o's noted, awaiting placement Objective Vital signs: Vital Signs - 12hr 02/22/17 02/22/17 02/22/17 05:13 05:28 07:52 Temperature 99.6 F 99.1 F Pulse Rate 102 H 107 H Respiratory 18 Rate Blood Pressure 187/86 O2 Sat by Pulse 98 98 Oximetry 02/22/17 02/22/17 02/22/17 10:00 10:18 12:00 Temperature 98.4 F Pulse Rate 10 L 108 H Respiratory 18 Rate Blood Pressure 187/86 165/91 O2 Sat by Pulse 94 96 Oximetry Narrative Exam: incisions healing well, negative Haylie's sign - Labs CBC & BMP: 02/19/17 10:47 02/22/17 04:05 Labs: Abnormal lab results 02/21/17 02/21/17 02/22/17 Range/Units 12:17 17:25 01:34 Sodium (137-145) mmol/L Carbon Dioxide (22-30) mmol/L BUN (9-20) mg/dL Glucose (75-100) mg/dL POC Glucose 244 H 261 H 245 H (70-105) 02/22/17 02/22/17 02/22/17 Range/Units 04:05 06:43 12:02 Sodium 135 L (137-145) mmol/L Carbon Dioxide 21 L (22-30) mmol/L BUN 37 H (9-20) mg/dL Glucose 241 H (75-100) mg/dL POC Glucose 223 H 212 H (70-105)
--- NOTE | 2017-02-22 16:38 | Progress Note ---
Assessment and Plan - Diabetes mellitus type 2: Continue sliding scale insulin, 2000 ADA diet. - Hypertension: Optimize control. - Acute on Chronic renal failure: On IVF, avoid nephrotoxic agents - Displaced Fractured right tibia: Had closed reduction with intramedullary nail placement, surgery following pt. - Hyperkalemia: Corrected - DVT prophylaxis with Lovenox Subjective Date of service: 02/22/17 Principal diagnosis: right tibia fracture, IDDM, Interval history: No overnight events. Objective - Constitutional Vitals: Vital Signs - 12hr 02/22/17 02/22/17 02/22/17 05:13 05:28 07:52 Temperature 99.6 F 99.1 F Pulse Rate 102 H 107 H Respiratory 18 Rate Blood Pressure 187/86 O2 Sat by Pulse 98 98 Oximetry 02/22/17 02/22/17 02/22/17 10:00 10:18 12:00 Temperature 98.4 F Pulse Rate 10 L 108 H Respiratory 18 Rate Blood Pressure 187/86 165/91 O2 Sat by Pulse 94 96 Oximetry 02/22/17 15:36 Temperature 99.7 F H Pulse Rate 103 H Respiratory 18 Rate Blood Pressure 142/87 O2 Sat by Pulse 93 Oximetry General appearance: Present: no acute distress, well-nourished - EENT Eyes: PERRL, EOM intact ENT: hearing intact, clear oral mucosa Ears: bilateral: normal - Neck Neck: supple, normal ROM - Respiratory Respiratory effort: normal Respiratory: bilateral: CTA - Breasts Breasts: normal - Cardiovascular Rhythm: regular Heart Sounds: Present: S1 & S2. Absent: gallop, rub Extremities: pulses intact, No edema, normal color, Full ROM - Gastrointestinal General gastrointestinal: Present: soft, non-tender, non-distended, normal bowel sounds - Genitourinary Male genitourinary: normal - Integumentary Integumentary: clear, warm, dry - Musculoskeletal Musculoskeletal: 1, strength equal bilaterally - Neurologic Neurologic: moves all extremities - Psychiatric Psychiatric: memory intact, appropriate mood/affect, intact judgment & insight - Labs CBC & Chem 7: 02/19/17 10:47 02/22/17 04:05 Labs: Abnormal lab results 02/21/17 02/21/17 02/22/17 Range/Units 12:17 17:25 01:34 Sodium (137-145) mmol/L Carbon Dioxide (22-30) mmol/L BUN (9-20) mg/dL Glucose (75-100) mg/dL POC Glucose 244 H 261 H 245 H (70-105) 02/22/17 02/22/17 02/22/17 Range/Units 04:05 06:43 12:02 Sodium 135 L (137-145) mmol/L Carbon Dioxide 21 L (22-30) mmol/L BUN 37 H (9-20) mg/dL Glucose 241 H (75-100) mg/dL POC Glucose 223 H 212 H (70-105)
[2017-02-22] MEDS: DILAUDID IV PRN (22:11)
[2017-02-23] MEDS: NOVOLOG SUB-Q SCH ×2 (00:50→06:16)
[2017-02-23] MEDS: PERCOCET 5/325 PO PRN (03:19)
[2017-02-23 04:32] LABS: Basophils % (Auto) 0.6 % (0.0-1.8); Eosinophils % (Auto) 0.7 % (0.0-4.3); Hematocrit 41.8 % (35.5-45.6); Hemoglobin 14.3 gm/dl (11.8-15.2); Mean Corpuscular HGB Conc 34 % (32-34); Mean Corpuscular Hemoglobin 34 pg (28-32); Mean Corpuscular Volume 98 fl (84-94); Platelet Count 273 K/mm3 (140-440); Red Blood Count 4.24 M/mm3 (3.65-5.03); Red Cell Distribution Width 13.5 % (13.2-15.2); White Blood Count 10.6 K/mm3 (4.5-11.0)
[2017-02-23 04:49] LABS: Chloride 99.7 mmol/L (98-107)
[2017-02-23 08:06] VITALS: BP 154/90
--- NOTE | 2017-02-23 08:57 | Progress Note ---
Assessment and Plan - Patient Problems (1) NAVARRO (acute kidney injury) Current Visit: Yes Status: Acute Plan to address problem: Acute kidney injury superimposed on CKD stage 3. Renal function has improved. (2) Hyperkalemia Current Visit: Yes Status: Acute Plan to address problem: Improved. (3) HTN (hypertension) Current Visit: Yes Status: Chronic Qualifiers: Hypertension type: essential hypertension Qualified Code(s): I10 - Essential (primary) hypertension Plan to address problem: Stop IV fluids. Increase Clonidine. (4) Closed right ankle fracture Current Visit: Yes Status: Acute Qualifiers: Encounter type: initial encounter Fracture healing: F Qualified Code(s): S82.891A - Other fracture of right lower leg, initial encounter for closed fracture Subjective Date of service: 02/23/17 Principal diagnosis: right tibia fracture, IDDM, Interval history: No new complaint. Objective - Vital Signs Vital signs: Vital Signs - 12hr 02/22/17 02/22/17 02/22/17 21:28 22:00 22:09 Temperature Pulse Rate 89 Pulse Rate [ 78 Right Radial] Respiratory 17 Rate Respiratory 17 Rate [Right Lower Leg] Blood Pressure 177/94 Blood Pressure [Left] O2 Sat by Pulse 97 97 Oximetry 02/22/17 02/22/17 02/23/17 22:41 23:34 03:19 Temperature 99.3 F Pulse Rate 103 H Pulse Rate [ Right Radial] Respiratory 17 20 16 Rate Respiratory Rate [Right Lower Leg] Blood Pressure 160/91 Blood Pressure [Left] O2 Sat by Pulse 98 Oximetry 02/23/17 02/23/17 04:19 08:00 Temperature 98.9 F Pulse Rate 84 Pulse Rate [ Right Radial] Respiratory 17 20 Rate Respiratory Rate [Right Lower Leg] Blood Pressure Blood Pressure 154/90 [Left] O2 Sat by Pulse 97 Oximetry - General Appearance General appearance: well-developed, well-nourished, appears stated age, obese, other (no distress) EENT: ATNC, PERRL, mucous membranes moist, hearing intact, vision intact Neck: supple Respiratory: Present: Clear to Ascultation Cardiology: regular, S1S2, no murmurs Gastrointestinal: normoactive bowel sounds, no tenderness, no distended, obese Integumentary: no rash Neurologic: no focal deficit, no asterixis, alert and oriented x3, CN 3-12 intact Musculoskeletal: other (right leg dressing noted) Psychiatric: mood/affect appropriate, cooperative - Lab 02/23/17 03:51 02/23/17 03:51 Most recent lab results Calcium 9.0 mg/dL (8.4-10.2) 02/23/17 03:51 Phosphorus 3.70 mg/dL (2.5-4.5) 02/21/17 06:50 Urine Creatinine < 4.2 mg/dL (0.1-20.0) 02/21/17 Unknown Urine Sodium 10 mEq/L 02/21/17 Unknown
[2017-02-23] MEDS: VALTREX PO SCH (10:04)
[2017-02-23] MEDS: CARDIZEM CD PO SCH (10:17)
[2017-02-23] MEDS ORDERED: CATAPRES PO SCH (10:58)
--- NOTE | 2017-02-23 11:58 | Discharge Summary ---
Providers - Providers Date of Admission: 02/19/17 16:46 Attending physician: JOHNATHON CALL MD 02/19/17 17:32 Consult to Physician [CONS] Routine Consulting Provider: TATIANNA NUNES Reason For Exam: MEDICAL MANAGEMENT Place consult to:: yes Notified:: yes 02/20/17 07:47 Consult to Physician [CONS] Routine Consulting Provider: JARRETT OCASIO Reason For Exam: NAVARRO/CKD Place consult to:: Office Notified:: yes Phone number called:: [phone] Was contact made?: Yes If yes, spoke with:: Time called:: 09:32 02/20/17 16:15 Physical Therapy Evaluation and Treat [CONS] Routine Comment: Reason For Exam: postop evaluation Weight bearing status?: Full wt bearing Assistive devices?: Yes If so list: Walker 02/23/17 09:59 Consult to Wound/ET Nurse [CONS] Routine Reason For Exam: evaluation of wound and skin tear Primary care physician: PIN CHASER Hospitalization Hospital course: Diabetes mellitus type 2: Continue sliding scale insulin, 1999 ADA diet. - Hypertension: Optimize control. - Acute on Chronic renal failure: On IVF, avoid nephrotoxic agents - Displaced Fractured right tibia: Had closed reduction with intramedullary nail placement, surgery following pt. - Hyperkalemia: Corrected - DVT prophylaxis with Lovenox Disposition: DC/[place]-03 SNF W [facility] Core Measure Documentation - Palliative Care Palliative Care/ Comfort Measures: Not Applicable - Core Measures Any of the following diagnoses?: none - VTE Discharge Requirements Deep Vein Thrombosis/Pulmonary Embolism Present on Admission: No Exam - Constitutional Vitals: Temp Pulse Resp BP Pulse Ox 98.9 F 84 20 154/90 97 02/23/17 08:00 02/23/17 08:00 02/23/17 08:00 02/23/17 08:00 02/23/17 08:00 Plan Activity: advance as tolerated, fall precautions Diet: diabetic Special Instructions: record daily weights, record daily BP diary, record blood sugar diary, physical therapy, occupational therapy Follow up with: BO BOWER MD [Primary Care Provider] - 7 Days JOHNATHON CALL MD [Staff Physician] - 7 Days JARRETT OCASIO MD [Staff Physician] - 7 Days Prescriptions: cloNIDine [Catapres] 0.2 mg PO BID #30 tablet oxyCODONE /ACETAMINOPHEN [Percocet 5/325 mg] 1 - 2 tab PO Q6HR PRN #14 tablet PRN Reason: Pain
--- NOTE | 2017-02-23 23:41 | Progress Note ---
Assessment and Plan Assessment and plan: - Diabetes mellitus type 2: Uncontrolled, Continue insulin therapy and ADA diet. - Hypertension: Optimize control. - Acute kidney injury on Chronic renal failure III: POA. At baseline. avoid nephrotoxic agents - Displaced Fractured right tibia: Had closed reduction with intramedullary nail placement, surgery following pt. - Hyperkalemia: Corrected - DVT prophylaxis with Loveno Ok to discharge to SNF. History Interval history: Patient seen and examined, in no acute distress. concerned about his right foot movement and alignment. Hospitalist Physical - Physical exam Narrative exam: General appearance: well-developed, well-nourished, appears stated age, NAD EENT: ATNC, PERRL, mucous membranes moist, hearing intact, vision intact Neck: supple Respiratory: Present: Clear to Ascultation Cardiology: regular, S1S2, no murmurs Gastrointestinal: normoactive bowel sounds, no tenderness, no distended, obese Integumentary: no rash Neurologic: no focal deficit, no asterixis, alert and oriented x3, CN 3-12 intact Musculoskeletal: Limited ROM the Right lower ext maida dressing in place, foot is laterally deviated and distorted appearance Psychiatric: mood/affect appropriate, cooperative - Constitutional Vitals: Temp Pulse Resp BP Pulse Ox 98.9 F 84 20 154/90 97 02/23/17 08:00 02/23/17 08:00 02/23/17 08:00 02/23/17 08:00 02/23/17 08:00 General appearance: Present: no acute distress, well-nourished Results - Labs CBC & Chem 7: 02/23/17 03:51 02/23/17 03:51 Labs: Laboratory Last Values WBC 10.6 K/mm3 (4.5-11.0) 02/23/17 03:51 RBC 4.24 M/mm3 (3.65-5.03) 02/23/17 03:51 Hgb 14.3 gm/dl (11.8-15.2) 02/23/17 03:51 Hct 41.8 % (35.5-45.6) 02/23/17 03:51 MCV 98 fl (84-94) H 02/23/17 03:51 MCH 34 pg (28-32) H 02/23/17 03:51 MCHC 34 % (32-34) 02/23/17 03:51 RDW 13.5 % (13.2-15.2) 02/23/17 03:51 Plt Count 273 K/mm3 (140-440) 02/23/17 03:51 Lymph % (Auto) 24.9 % (13.4-35.0) 02/23/17 03:51 [place] % (Auto) 15.7 % (0.0-7.3) H 02/23/17 03:51 Eos % (Auto) 0.7 % (0.0-4.3) 02/23/17 03:51 Baso % (Auto) 0.6 % (0.0-1.8) 02/23/17 03:51 Lymph # 2.6 K/mm3 (1.2-5.4) 02/23/17 03:51 [place] # 1.7 K/mm3 (0.0-0.8) H 02/23/17 03:51 Eos # 0.1 K/mm3 (0.0-0.4) 02/23/17 03:51 Baso # 0.1 K/mm3 (0.0-0.1) 02/23/17 03:51 Seg Neutrophils % 58.1 % (40.0-70.0) 02/23/17 03:51 Seg Neutrophils # 6.2 K/mm3 (1.8-7.7) 02/23/17 03:51 Sodium 134 mmol/L (137-145) L 02/23/17 03:51 Potassium 5.0 mmol/L (3.6-5.0) 02/23/17 03:51 Chloride 99.7 mmol/L (98-107) 02/23/17 03:51 Carbon Dioxide 21 mmol/L (22-30) L 02/23/17 03:51 Anion Gap 18 mmol/L 02/23/17 03:51 BUN 36 mg/dL (9-20) H 02/23/17 03:51 Creatinine 1.5 mg/dL (0.8-1.5) 02/23/17 03:51 Estimated GFR 57 ml/min 02/23/17 03:51 BUN/Creatinine Ratio 24 % 02/23/17 03:51 Glucose 257 mg/dL (75-100) H 02/23/17 03:51 POC Glucose 254 (70-105) H 02/23/17 05:38 Hemoglobin A1c 8.4 % (4-6) H 02/20/17 05:08 Calcium 9.0 mg/dL (8.4-10.2) 02/23/17 03:51 Phosphorus 3.70 mg/dL (2.5-4.5) 02/21/17 06:50 Total Bilirubin 0.70 mg/dL (0.1-1.2) 02/20/17 05:14 AST 27 units/L (5-40) 02/20/17 05:14 ALT 34 units/L (7-56) 02/20/17 05:14 Alkaline Phosphatase 56 units/L (35-129) 02/20/17 05:14 Total Protein 7.5 g/dL (6.3-8.2) 02/20/17 05:14 Albumin 3.5 g/dL (3.9-5) L 02/20/17 05:14 Albumin/Globulin Ratio 0.9 % 02/20/17 05:14 PTH Intact 195.0 pg/mL (15-65) H 02/21/17 06:50 Urine Color Yellow (Yellow) 02/21/17 Unknown Urine Turbidity Clear (Clear) 02/21/17 Unknown Urine pH 6.0 (5.0-7.0) 02/21/17 Unknown Ur Specific [place] 1.015 (1.003-1.030) 02/21/17 Unknown Urine Protein 30 mg/dl mg/dL (Negative) 02/21/17 Unknown Urine Glucose (UA) >=500 mg/dL (Negative) 02/21/17 Unknown Urine Ketones Neg mg/dL (Negative) 02/21/17 Unknown Urine Blood Lg (Negative) 02/21/17 Unknown Urine Nitrite Neg (Negative) 02/21/17 Unknown Urine Bilirubin Neg (Negative) 02/21/17 Unknown Urine Urobilinogen 2.0 mg/dL (<2.0) 02/21/17 Unknown Ur Leukocyte Esterase Neg (Negative) 02/21/17 Unknown Urine WBC (Auto) < 1.0 /HPF (0.0-6.0) 02/21/17 Unknown Urine RBC (Auto) < 1.0 /HPF (0.0-6.0) 02/21/17 Unknown Urine Creatinine < 4.2 mg/dL (0.1-20.0) 02/21/17 Unknown Urine Sodium 10 mEq/L 02/21/17 Unknown
== END 2017-02-23 20:00 | DRG 492 ==
LOC: OR 09:49 → 3A 16:46 → 3B-SURG 17:39
PROVIDERS: ADMIT Orthopaedic Surgery; ATTEND Orthopaedic Surgery
PROC: 0QSG06Z Reposition Right Tibia with Intramedullary Internal Fixation Device, Open Approach (ICD-10-PCS; principal; 2017-02-20)
DX: S82.301A Unspecified fracture of lower end of right tibia, initial encounter for closed fracture (principal); N17.0 Acute kidney failure with tubular necrosis; E87.5 Hyperkalemia; E78.5 Hyperlipidemia, unspecified; N18.3 Chronic kidney disease, stage 3 (moderate); Z87.891 Personal history of nicotine dependence; E66.9 Obesity, unspecified; I12.9 Hypertensive chronic kidney disease with stage 1 through stage 4 chronic kidney disease, or unspecified chronic kidney disease; E11.22 Type 2 diabetes mellitus with diabetic chronic kidney disease; Z79.899 Other long term (current) drug therapy; Z79.82 Long term (current) use of aspirin; Z82.49 Family history of ischemic heart disease and other diseases of the circulatory system; Z68.35 Body mass index [BMI] 35.0-35.9, adult; W10.9XXA Fall (on) (from) unspecified stairs and steps, initial encounter; Y93.89 Activity, other specified; Y92.89 Other specified places as the place of occurrence of the external cause; Z79.4 Long term (current) use of insulin
CPT/HCPCS: 36415; 64450; 76770; 80048; 80053; 81001; 82570; 82962; 83036; 83970; 84100; 84132; 84300; 85025; 94640; 94760; C1713; G8978-GP; G8979-GP; J0330; J0360; J0610; J0690; J0735; J1100; J1170; J1815; J2250; J2370; J2405; J2704; J3010; J7030

== ENCOUNTER 2017-08-22 13:14 | Outpatient (CLI) | payer MEDICAID ==
--- NOTE | 2017-08-22 19:41 | Magnetic Resonance Report ---
FINAL REPORT EXAM: MR LUMBAR SPINE WO CON HISTORY: Spondylolysis, lumbar region TECHNIQUE: Multiplanar MRI of lumbar spine. No contrast administered. PRIORS: None. FINDINGS: Variable, diffuse disc desiccation. Probable small focal fat or hemangioma in the L1 vertebral body. No loss of height or gross malalignment of lumbar vertebral bodies. Conus medullaris is in normal location and has normal contour and signal intensity. L1-L2: Small, right paracentral disc bulge partially effaces right lateral recess and flattens right ventral thecal sac. No significant central spinal stenosis or neural foraminal narrowing. L2-L3: Small, annular bulge along the anterolateral disc margins without posterior protrusion, and prominent posterior epidural fat. Mild central spinal canal narrowing may be due in part to congenitally shortened pedicular distance. Very mild bilateral inferior neural foraminal narrowing. L3-L4: Small, generalized disc bulge. Mild central spinal canal narrowing may be due in part to congenitally shortened pedicular distance. Moderate bilateral neural foraminal narrowing. L4-L5: Small, annular bulge along the anterolateral disc margins without posterior protrusion. No significant central spinal stenosis. Mild bilateral neural foraminal narrowing. L5-S1: Small, annular bulge without posterior protrusion. No significant central spinal stenosis. Mild-moderate bilateral neural foraminal narrowing. IMPRESSION: 1. Degenerative disc disease and spondylosis. Please see above for details at individual levels. 2. Multilevel annular or disc bulges. No significant central spinal canal compromise. 3. Multilevel neural foraminal narrowing, most pronounced in the bilateral L3-4 level.
== END 2017-08-22 13:15 | disposition home or self-care (01) ==
LOC: MRI 13:14
PROVIDERS: ATTEND Anesthesiology
DX: M48.061 Spinal stenosis, lumbar region without neurogenic claudication (principal); M43.06 Spondylolysis, lumbar region; M51.36 Other intervertebral disc degeneration, lumbar region; I12.9 Hypertensive chronic kidney disease with stage 1 through stage 4 chronic kidney disease, or unspecified chronic kidney disease; N18.9 Chronic kidney disease, unspecified; E08.40 Diabetes mellitus due to underlying condition with diabetic neuropathy, unspecified; B18.2 Chronic viral hepatitis C; G89.4 Chronic pain syndrome; K21.9 Gastro-esophageal reflux disease without esophagitis; Z79.891 Long term (current) use of opiate analgesic
CPT/HCPCS: 72148

== ENCOUNTER 2018-01-12 10:49 | Emergency (ER) | payer MEDICAID ==
[2018-01-12 11:06] VITALS: BP 165/81
--- NOTE | 2018-01-12 13:25 | Emergency Department Report ---
ED Rash HPI - HPI Chief Complaint: Skin Rash Stated Complaint: DISCOLORATION OF LEGS Time Seen by Provider: 01/12/18 12:48 Duration: she is a diabetic who has had discoloration to bilateral lower extremities for approximately 2 months. Patient does have a mild amount of fluid on the legs but states that the dark discoloration is relatively new. Patient states that there is been no fevers chills nausea vomiting. Patient states there is some itchiness associated with the discoloration. Patient states he is unable to see his physician for over another month and wanted to make sure that there was nothing life-threatening going on. Patient denies any shortness of breath chest pain at this time. Location: Lower Extremities Rash Symptoms: Yes Itching, No Peeling, No Blistering, No Fever, No Lightheaded , No Malaise Severity: mild ED Review of Systems ROS: Stated complaint: DISCOLORATION OF LEGS Other details as noted in HPI Comment: All other systems reviewed and negative ED Past Medical Hx - Past Medical History Previous Medical History?: Yes Hx Hypertension: Yes (2008) Hx Congestive Heart Failure: No Hx Diabetes: Yes Hx Arthritis: No Hx Asthma: No Hx COPD: No - Surgical History Past Surgical History?: Yes Additional Surgical History: [facility] leg surgery 01-13-2018 - Social History Smoking Status: Former Smoker Substance Use Type: Prescribed - Medications Home Medications: Home Medications Medication Instructions Recorded Confirmed Last Taken Type Insulin Detemir [Levemir Flexpen] 100 unit SQ BID 03/12/14 02/19/17 02/18/17 18: 00 History dilTIAZem CD [Cardizem CD] 320 mg PO QDAY 03/12/14 02/19/17 02/19/17 07:30 History Aspirin [Adult Low Dose Aspirin EC] 81 mg PO DAILY 02/14/17 02/19/17 02/14/17 11 :00 History Insulin Regular, Human [Novolin R] 100 unit SC TID 02/19/17 02/19/17 02/18/17 18 :00 History Simvastatin [Zocor TAB] 20 mg PO DAILY 02/19/17 02/19/17 02/19/17 07:30 History Valacyclovir HCl [Valtrex] 1,000 mg PO DAILY 02/19/17 02/19/17 02/19/17 07:30 History Ziprasidone HCl [Geodon] 80 mg PO DAILY 02/19/17 02/19/17 02/18/17 20:00 History glipiZIDE [Glipizide] 10 mg PO BID 02/19/17 02/19/17 02/19/17 07:30 History Oxycodone HCl/Acetaminophen 1 each PO Q6HR PRN #40 tablet 02/23/17 Unknown Rx [Percocet 7.5/325 mg] cloNIDine [Catapres] 0.2 mg PO BID #30 tablet 02/23/17 Unknown Rx cloNIDine [Catapres] 0.2 mg PO BID #60 tablet 02/23/17 Unknown Rx oxyCODONE /ACETAMINOPHEN [Percocet 1 - 2 tab PO Q6HR PRN #14 tablet 02/23/17 Unknown Rx 5/325 mg] Triamcinolone Acetonide 60 ml TP BID #1 bottle 01/12/18 Unknown Rx [Triamcinolone 0.1% LOTION] Rash Exam - Exam General: Vital signs noted. No distress. Alert and acting appropriately. HEENT: No Periorbital Edema, No Conjuctival Injection, No Chemosis, No Perioral Edema, No Tongue Edema, No Uvular Edema, No Compromised Airway, No Drooling Lungs: Yes Good Air Exchange (Normal Breath Sounds), No Wheezes, No Ronchi, No Stridor, No Cough, No Labored Respirations, No Retractions, No Use of Accessory Muscles, No Other Abnormal Lung Sounds Heart: Yes Regular, No Murmur Skin: Yes Other, No Tenderness, No Erythema, No Edema Other: Positive: Abdomen Normal, Neurologic Normal, Musculoskeletal Normal ED Course Vital Signs 01/12/18 11:02 Temperature 98.2 F Pulse Rate 97 H Respiratory 22 Rate Blood Pressure 165/81 O2 Sat by Pulse 98 Oximetry ED Medical Decision Making - Medical Decision Making Appears to have some dependent edema which is partially causing the patient's skin discoloration however he does appear to also have a Acanthosis Nigricans. Patient Be Discharged All Follow with Vascular. Critical care attestation.: If time is entered above; I have spent that time in minutes in the direct care of this critically ill patient, excluding procedure time. ED Disposition Clinical Impression: Dependent edema, Acanthosis nigricans Disposition: - TO HOME OR SELFCARE Is pt being admited?: No Does the pt Need Aspirin: No Condition: Stable Instructions: Leg Edema (ED) Prescriptions: Triamcinolone Acetonide [Triamcinolone 0.1% LOTION] 60 ml TP BID #1 bottle Referrals: ADRIAN PATTERSON MD [Staff Physician] - 3-5 Days
== END 2018-01-12 13:40 | disposition home or self-care (01) ==
LOC: ED 10:49
DX: L83 Acanthosis nigricans (principal); R60.0 Localized edema; I10 Essential (primary) hypertension; E11.9 Type 2 diabetes mellitus without complications; Z87.891 Personal history of nicotine dependence; Z79.4 Long term (current) use of insulin; Z79.82 Long term (current) use of aspirin
CPT/HCPCS: 99282

== ENCOUNTER 2019-01-07 18:53 | Observation (INO) | payer MEDICARE ==
--- NOTE | 2019-01-07 19:53 | Emergency Department Report ---
ED General Adult HPI - General Chief complaint: Hypoglycemia Stated complaint: HYPOGLYCEMIA Time Seen by Provider: 01/07/19 19:42 Source: patient, EMS Mode of arrival: Stretcher Limitations: Altered Mental Status - History of Present Illness Initial comments: 63-year-old male presents after reported syncopal event likely secondary to hypoglycemia. EMS was called by bystanders after patient was seen sitting minimally responsive at [employer]. Upon EMS arrival patient's glucose reading was 25. Oral glucose was given by EMS after which symptoms resolved. Per patient he has been trying to keep his glucose levels low secondary to chronic disease. Patient now presents with no symptoms and denies any recent fever or cough shortness of breath nausea vomiting diarrhea. Patient denies any chest pain or shortness of breath during syncopal event. Patient alert and oriented 3. -: Sudden Associated Symptoms: syncope, weakness. denies: chest pain, headaches, loss of appetite, malaise, nausea/vomiting, shortness of breath - Related Data Home Medications Medication Instructions Recorded Confirmed Last Taken Insulin Detemir [Levemir Flexpen] 35 unit SQ BID 03/12/14 01/07/19 02/18/17 18:00 dilTIAZem CD [Cardizem CD] 320 mg PO QDAY 03/12/14 01/07/19 02/19/17 07:30 Aspirin [Adult Low Dose Aspirin EC] 81 mg PO DAILY 02/14/17 01/07/19 02/14/17 11:00 Simvastatin (Nf) [Zocor TAB] 20 mg PO DAILY 02/19/17 01/07/19 02/19/17 07:30 HYDROcodone/APAP 10-325 [[place] 1 tab PO Q8HR PRN 01/07/19 01/07/19 Unknown 10-325 mg TAB] Pregabalin [Lyrica] 1 tab PO BID 01/07/19 01/07/19 Unknown Tradjenta 50 tab PO QAM 01/07/19 01/07/19 Unknown Valsartan [Diovan] 1 tab PO DAILY 01/07/19 01/07/19 Unknown Previous Rx's Medication Instructions Recorded Last Taken Type cloNIDine [Catapres] 0.2 mg PO BID #30 tablet 02/23/17 Unknown Rx Allergies Allergy/AdvReac Type Severity Reaction Status Date / Time No Known Drug Allergies Allergy n/a Verified 03/20/14 08:26 ED Review of Systems ROS: Stated complaint: HYPOGLYCEMIA Other details as noted in HPI Constitutional: denies: no symptoms reported, see HPI, chills, fever, malaise Respiratory: denies: see HPI, cough, shortness of breath, SOB with exertion, SOB at rest, wheezing Cardiovascular: syncope. denies: chest pain, palpitations Endocrine: denies: excessive sweating, flushing, intolerance to cold, increased thirst, increased urine Gastrointestinal: denies: abdominal pain, nausea, vomiting Musculoskeletal: denies: back pain, myalgia Skin: denies: rash Neurological: denies: headache, numbness, paresthesias, confusion Psychiatric: denies: anxiety, depression, suicidal thoughts ED Past Medical Hx - Past Medical History Previous Medical History?: Yes Hx Hypertension: Yes (2008) Hx Congestive Heart Failure: No Hx Diabetes: Yes Hx Arthritis: No Hx Asthma: No Hx COPD: No - Surgical History Past Surgical History?: Yes Additional Surgical History: Righ leg surgery 01-13-2018 - Social History Smoking Status: Former Smoker Substance Use Type: None - Medications Home Medications: Home Medications Medication Instructions Recorded Confirmed Last Taken Type Insulin Detemir [Levemir Flexpen] 35 unit SQ BID 03/12/14 01/07/19 02/18/17 18:00 History dilTIAZem CD [Cardizem CD] 320 mg PO QDAY 03/12/14 01/07/19 02/19/17 07:30 History Aspirin [Adult Low Dose Aspirin EC] 81 mg PO DAILY 02/14/17 01/07/19 02/14/17 11:00 History Simvastatin (Nf) [Zocor TAB] 20 mg PO DAILY 02/19/17 01/07/19 02/19/17 07:30 History cloNIDine [Catapres] 0.2 mg PO BID #30 tablet 02/23/17 01/07/19 Unknown Rx HYDROcodone/APAP 10-325 [[place] 1 tab PO Q8HR PRN 01/07/19 01/07/19 Unknown History 10-325 mg TAB] Pregabalin [Lyrica] 1 tab PO BID 01/07/19 01/07/19 Unknown History Tradjenta 50 tab PO QAM 01/07/19 01/07/19 Unknown History Valsartan [Diovan] 1 tab PO DAILY 01/07/19 01/07/19 Unknown History ED Physical Exam - General Limitations: Altered Mental Status General appearance: alert, in no apparent distress - Head Head exam: Present: atraumatic, normocephalic, normal inspection - Eye Eye exam: Present: PERRL, EOMI - ENT ENT exam: Present: normal exam, normal orophraynx, mucous membranes moist - Neck Neck exam: Present: full ROM. Absent: tenderness, meningismus - Respiratory Respiratory exam: Absent: respiratory distress, wheezes, chest wall tenderness - Cardiovascular Cardiovascular Exam: Present: regular rate, normal heart sounds - GI/Abdominal GI/Abdominal exam: Present: soft. Absent: distended, tenderness, guarding - Rectal Rectal exam: Present: deferred - Extremities Exam Extremities exam: Present: full ROM, normal capillary refill. Absent: calf tenderness - Neurological Exam Neurological exam: Present: alert, altered, oriented X3, CN II-XII intact - Psychiatric Psychiatric exam: Present: normal affect, normal mood - Skin Skin exam: Present: warm, dry ED Course Vital Signs 01/07/19 01/07/19 01/07/19 19:45 20:00 20:15 Temperature 97.6 F Pulse Rate 57 L 56 L 53 L Respiratory 14 12 10 L Rate Blood Pressure 142/73 142/73 143/79 O2 Sat by Pulse 99 99 100 Oximetry 01/07/19 01/07/19 01/07/19 20:30 21:31 22:01 Temperature Pulse Rate 66 69 Respiratory 12 15 20 Rate Blood Pressure 150/83 150/83 108/51 O2 Sat by Pulse 98 100 97 Oximetry 01/07/19 01/07/19 22:31 23:01 Temperature Pulse Rate 57 L 65 Respiratory 13 10 L Rate Blood Pressure 108/51 128/59 O2 Sat by Pulse 100 100 Oximetry - Reevaluation(s) Reevaluation #1: 01/07/19 22:52 Patient resting comfortably in no distress. Patient still weak with any type of ambulation. Discussed abnormal findings including an elevated creatinine with patient, patient unaware of any kidney disease. Will discuss case with internal medicine service for possible observation. - Consultations Consultation #1: 01/07/19 22:58 Discussed case in detail with Dr. lawrence with internal medicine will admit for further evaluation of hypoglycemia in addition to acute renal failure. 01/07/19 23:16 ED Medical Decision Making - Lab Data Result diagrams: 01/07/19 20:06 01/07/19 20:06 Lab Results 01/07/19 01/07/19 01/07/19 Range/Units 19:46 20:06 20:06 WBC 6.9 (4.5-11.0) K/mm3 RBC 4.05 (3.65-5.03) M/mm3 Hgb 13.3 (11.8-15.2) gm/dl Hct 39.2 (35.5-45.6) % MCV 97 H (84-94) fl MCH 33 H (28-32) pg MCHC 34 (32-34) % RDW 14.4 (13.2-15.2) % Plt Count 254 (140-440) K/mm3 Lymph % (Auto) 9.9 L (13.4-35.0) % [place] % (Auto) 6.1 (0.0-7.3) % Eos % (Auto) 0.3 (0.0-4.3) % Baso % (Auto) 0.5 (0.0-1.8) % Lymph # 0.7 L (1.2-5.4) K/mm3 [place] # 0.4 (0.0-0.8) K/mm3 Eos # 0.0 (0.0-0.4) K/mm3 Baso # 0.0 (0.0-0.1) K/mm3 Seg Neutrophils % 83.2 H (40.0-70.0) % Seg Neutrophils # 5.7 (1.8-7.7) K/mm3 Sodium 139 (137-145) mmol/L Potassium 4.4 (3.6-5.0) mmol/L Chloride 99.5 (98-107) mmol/L Carbon Dioxide 24 (22-30) mmol/L Anion Gap 20 mmol/L BUN 23 H (9-20) mg/dL Creatinine 2.5 H (0.8-1.5) mg/dL Estimated GFR 32 ml/min BUN/Creatinine Ratio 9 % Glucose 70 L (75-100) mg/dL POC Glucose 43 L (70-105) Calcium 9.8 (8.4-10.2) mg/dL Total Bilirubin 0.20 (0.1-1.2) mg/dL AST 35 (5-40) units/L ALT 20 (7-56) units/L Alkaline Phosphatase 70 (35-129) units/L Total Protein 8.3 H (6.3-8.2) g/dL Albumin 4.1 (3.9-5) g/dL Albumin/Globulin Ratio 1.0 % Urine Color (Yellow) Urine Turbidity (Clear) Urine pH (5.0-7.0) Ur Specific [place] (1.003-1.030) Urine Protein (Negative) mg/dL Urine Glucose (UA) (Negative) mg/dL Urine Ketones (Negative) mg/dL Urine Blood (Negative) Urine Nitrite (Negative) Urine Bilirubin (Negative) Urine Urobilinogen (<2.0) mg/dL Ur Leukocyte Esterase (Negative) Urine WBC (Auto) (0.0-6.0) /HPF Urine RBC (Auto) (0.0-6.0) /HPF Urine Mucus /HPF Plasma/Serum Alcohol (0-0.07) % 01/07/19 01/07/19 Range/Units 20:06 22:16 WBC (4.5-11.0) K/mm3 RBC (3.65-5.03) M/mm3 Hgb (11.8-15.2) gm/dl Hct (35.5-45.6) % MCV (84-94) fl MCH (28-32) pg MCHC (32-34) % RDW (13.2-15.2) % Plt Count (140-440) K/mm3 Lymph % (Auto) (13.4-35.0) % [place] % (Auto) (0.0-7.3) % Eos % (Auto) (0.0-4.3) % Baso % (Auto) (0.0-1.8) % Lymph # (1.2-5.4) K/mm3 [place] # (0.0-0.8) K/mm3 Eos # (0.0-0.4) K/mm3 Baso # (0.0-0.1) K/mm3 Seg Neutrophils % (40.0-70.0) % Seg Neutrophils # (1.8-7.7) K/mm3 Sodium (137-145) mmol/L Potassium (3.6-5.0) mmol/L Chloride (98-107) mmol/L Carbon Dioxide (22-30) mmol/L Anion Gap mmol/L BUN (9-20) mg/dL Creatinine (0.8-1.5) mg/dL Estimated GFR ml/min BUN/Creatinine Ratio % Glucose (75-100) mg/dL POC Glucose (70-105) Calcium (8.4-10.2) mg/dL Total Bilirubin (0.1-1.2) mg/dL AST (5-40) units/L ALT (7-56) units/L Alkaline Phosphatase (35-129) units/L Total Protein (6.3-8.2) g/dL Albumin (3.9-5) g/dL Albumin/Globulin Ratio % Urine Color [place] (Yellow) Urine Turbidity Slightly-cloudy (Clear) Urine pH 5.0 (5.0-7.0) Ur Specific [place] 1.017 (1.003-1.030) Urine Protein 100 mg/dl (Negative) mg/dL Urine Glucose (UA) Neg (Negative) mg/dL Urine Ketones Neg (Negative) mg/dL Urine Blood Neg (Negative) Urine Nitrite Neg (Negative) Urine Bilirubin Neg (Negative) Urine Urobilinogen < 2.0 (<2.0) mg/dL Ur Leukocyte Esterase Neg (Negative) Urine WBC (Auto) 2.0 (0.0-6.0) /HPF Urine RBC (Auto) 2.0 (0.0-6.0) /HPF Urine Mucus Few /HPF Plasma/Serum Alcohol < 0.01 (0-0.07) % - Radiology Data FINDINGS: Support devices: None. Heart: Within normal limits. Lungs/Pleura: No acute air space or interstitial disease. No significant pleural effusion. IMPRESSION: No acute findings. - Medical Decision Making 63-year-old male presents after syncopal episode likely due to his hypoglycemia. Patient found to have hypoglycemia in the ED in addition to acute renal failure. We'll admit IMS for further evaluation and workup. Vital signs now stable patient stable for admission. Critical Care Time: No Critical care attestation.: If time is entered above; I have spent that time in minutes in the direct care of this critically ill patient, excluding procedure time. ED Disposition Clinical Impression: Hypoglycemia, NAVARRO (acute kidney injury) Disposition: OP ADMIT IP TO THIS HOSP Is pt being admited?: Yes Condition: Fair Time of Disposition: 22:59
[2019-01-07 20:31] LABS: Basophils % (Auto) 0.5 % (0.0-1.8); Eosinophils % (Auto) 0.3 % (0.0-4.3); Hematocrit 39.2 % (35.5-45.6); Hemoglobin 13.3 gm/dl (11.8-15.2); Lymphocytes # (Auto) 0.7 K/mm3 (1.2-5.4); Lymphocytes % (Auto) 9.9 % (13.4-35.0); Mean Corpuscular HGB Conc 34 % (32-34); Mean Corpuscular Volume 97 fl (84-94); Monocytes # (Auto) 0.4 K/mm3 (0.0-0.8); Monocytes % (Auto) 6.1 % (0.0-7.3); Platelet Count 254 K/mm3 (140-440); Red Blood Count 4.05 M/mm3 (3.65-5.03); Red Cell Distribution Width 14.4 % (13.2-15.2)
[2019-01-07 20:54] LABS: Albumin 4.1 g/dL (3.9-5); Calcium 9.8 mg/dL (8.4-10.2)
--- NOTE | 2019-01-07 22:36 | XRay Report ---
. CHEST 2 VIEWS INDICATION: Lightheadedness/Dizziness. COMPARISON: 07/22/2016. FINDINGS: Support devices: None. Heart: Within normal limits. Lungs/Pleura: No acute air space or interstitial disease. No significant pleural effusion. IMPRESSION: No acute findings. Signer Name: Juan Bass MD Signed: 01/07/2019 10:32 PM Workstation Name: [id number]
[2019-01-07 22:39] LABS: Bilirubin,Urine NEG (Negative); Blood,Urine NEG (Negative); Color,Urine Amber (Yellow); Mucus,Urine FEW /HPF; Urobilinogen,Urine < 2.0 mg/dL (<2.0)
[2019-01-07] MEDS ORDERED: NORCO 10/325 PO PRN (23:43)
[2019-01-07] MEDS ORDERED: SODIUM CHLORIDE FLUSH SYRINGE 10 ML IV PRN (23:44)
[2019-01-07] MEDS ORDERED: TYLENOL PO PRN (23:44)
[2019-01-07] MEDS ORDERED: D50W (25GM) Syringe IV PRN (23:44)
[2019-01-07] MEDS ORDERED: ZOFRAN IV PRN (23:44)
[2019-01-07] MEDS ORDERED: NACL 0.45% 1000 ML 1,000 ML IV SCH (23:45)
--- NOTE | 2019-01-07 23:48 | History and Physical Report ---
History of Present Illness Chief complaint: Found minimally responsive by a public storage History of present illness: 63-year-old man with history of diabetes and hypertension who presented to the hospital. He was brought in after being found slumped over near public storage. He was altered and less responsive. EMS was called and was found to have a glucose of 25. EMS gave him some oral glucose after which she improved. The patient admits that he is currently homeless, he has been taking his insulin and admits to not eating so well. He was apparently given dextrose in the ER because his glucose again dropped to the 40s,he was given food after which the patient was alert and improved. Past medical history -Insulin-dependent diabetes, obesity, hypertension, hyperlipidemia, chronic kidney disease stage II to 3 Past surgical history Nailing of right tibia status post fracture, 2018 Social history 22 pack years, quit 25 years ago, patient is currently homeless and uses a w alker for ambulation. He states that he has been homeless now for 32 days and is not coping well., previous history of substance abuse, quit over 30 years ago Family history Denies family history of diabetes Medications and Allergies Allergies Allergy/AdvReac Type Severity Reaction Status Date / Time No Known Drug Allergies Allergy n/a Verified 03/20/14 08:26 Home Medications Medication Instructions Recorded Confirmed Last Taken Type Insulin Detemir [Levemir Flexpen] 35 unit SQ BID 03/12/14 01/07/19 02/18/17 18:00 History dilTIAZem CD [Cardizem CD] 320 mg PO QDAY 03/12/14 01/07/19 02/19/17 07:30 History Aspirin [Adult Low Dose Aspirin EC] 81 mg PO DAILY 02/14/17 01/07/19 02/14/17 11:00 History Simvastatin (Nf) [Zocor TAB] 20 mg PO DAILY 02/19/17 01/07/19 02/19/17 07:30 History cloNIDine [Catapres] 0.2 mg PO BID #30 tablet 02/23/17 01/07/19 Unknown Rx HYDROcodone/APAP 10-325 [[place] 1 tab PO Q8HR PRN 01/07/19 01/07/19 Unknown History 10-325 mg TAB] Pregabalin [Lyrica] 1 tab PO BID 01/07/19 01/07/19 Unknown History Tradjenta 50 tab PO QAM 01/07/19 01/07/19 Unknown History Valsartan [Diovan] 1 tab PO DAILY 01/07/19 01/07/19 Unknown History traZODone [Desyrel] 1 tab PO HS 01/07/19 01/07/19 Unknown History Review of Systems All systems: negative Constitutional: anorexia Ears, nose, mouth and throat: no nose pain Cardiovascular: no chest pain Respiratory: no cough Gastrointestinal: no abdominal pain Genitourinary Male: no dysuria Rectal: no pain Musculoskeletal: no neck stiffness Integumentary: no rash Neurological: no head injury, no lack of coordination Endocrine: no cold intolerance Hematologic/Lymphatic: no easy bruising Allergic/Immunologic: no urticaria Exam - Constitutional Vitals: Temp Pulse Resp BP Pulse Ox 97.6 F 65 10 L 128/59 100 01/07/19 19:45 01/07/19 23:01 01/07/19 23:01 01/07/19 23:01 01/07/19 23:01 General appearance: Present: no acute distress, well-nourished - EENT Eyes: Present: PERRL ENT: hearing intact, clear oral mucosa - Neck Neck: Present: supple, normal ROM - Respiratory Respiratory effort: normal Respiratory: bilateral: CTA - Cardiovascular Heart Sounds: Present: S1 & S2. Absent: rub, click - Extremities Extremities: pulses symmetrical Extremity abnormal: edema (right greater than left lower extremity. Pitting edema noted on both lower extremities, with stasis skin changes) Peripheral Pulses: within normal limits - Abdominal General gastrointestinal: Present: soft, non-tender, non-distended, normal bowel sounds Male genitourinary: Present: normal - Integumentary Integumentary: Present: clear, warm, dry - Musculoskeletal Musculoskeletal: gait normal, strength equal bilaterally - Psychiatric Psychiatric: appropriate mood/affect, intact judgment & insight - Neurologic Neurologic: CNII-XII intact, moves all extremities Results - Labs CBC & Chem 7: 01/07/19 20:06 01/08/19 05:14 Labs: Laboratory Last Values WBC 6.9 K/mm3 (4.5-11.0) 01/07/19 20:06 RBC 4.05 M/mm3 (3.65-5.03) 01/07/19 20:06 Hgb 13.3 gm/dl (11.8-15.2) 01/07/19 20:06 Hct 39.2 % (35.5-45.6) 01/07/19 20:06 MCV 97 fl (84-94) H 01/07/19 20:06 MCH 33 pg (28-32) H 01/07/19 20:06 MCHC 34 % (32-34) 01/07/19 20:06 RDW 14.4 % (13.2-15.2) 01/07/19 20:06 Plt Count 254 K/mm3 (140-440) 01/07/19 20:06 Lymph % (Auto) 9.9 % (13.4-35.0) L 01/07/19 20:06 Falls % (Auto) 6.1 % (0.0-7.3) 01/07/19 20:06 Eos % (Auto) 0.3 % (0.0-4.3) 01/07/19 20:06 Baso % (Auto) 0.5 % (0.0-1.8) 01/07/19 20:06 Lymph # 0.7 K/mm3 (1.2-5.4) L 01/07/19 20:06 Falls # 0.4 K/mm3 (0.0-0.8) 01/07/19 20:06 Eos # 0.0 K/mm3 (0.0-0.4) 01/07/19 20:06 Baso # 0.0 K/mm3 (0.0-0.1) 01/07/19 20:06 Seg Neutrophils % 83.2 % (40.0-70.0) H 01/07/19 20:06 Seg Neutrophils # 5.7 K/mm3 (1.8-7.7) 01/07/19 20:06 Sodium 139 mmol/L (137-145) 01/07/19 20:06 Potassium 4.4 mmol/L (3.6-5.0) 01/07/19 20:06 Chloride 99.5 mmol/L (98-107) 01/07/19 20:06 Carbon Dioxide 24 mmol/L (22-30) 01/07/19 20:06 20 mmol/L 01/07/19 20:06 BUN 23 mg/dL (9-20) H 01/07/19 20:06 2.5 mg/dL (0.8-1.5) H 01/07/19 20:06 Estimated GFR 32 ml/min 01/07/19 20:06 9 % 01/07/19 20:06 Glucose 70 mg/dL (75-100) L 01/07/19 20:06 POC Glucose 202 (70-105) H 01/07/19 23:21 Calcium 9.8 mg/dL (8.4-10.2) 01/07/19 20:06 0.20 mg/dL (0.1-1.2) 01/07/19 20:06 AST 35 units/L (5-40) 01/07/19 20:06 ALT 20 units/L (7-56) 01/07/19 20:06 70 units/L (35-129) 01/07/19 20:06 8.3 g/dL (6.3-8.2) H 01/07/19 20:06 4.1 g/dL (3.9-5) 01/07/19 20:06 1.0 % 01/07/19 20:06 Anna (Yellow) 01/07/19 22:16 Slightly-cloudy (Clear) 01/07/19 22:16 5.0 (5.0-7.0) 01/07/19 22:16 Ur Specific [place] 1.017 (1.003-1.030) 01/07/19 22:16 100 mg/dl mg/dL (Negative) 01/07/19 22:16 Neg mg/dL (Negative) 01/07/19 22:16 Neg mg/dL (Negative) 01/07/19 22:16 Neg (Negative) 01/07/19 22:16 Neg (Negative) 01/07/19 22:16 Neg (Negative) 01/07/19 22:16 < 2.0 mg/dL (<2.0) 01/07/19 22:16 Ur Leukocyte Esterase Neg (Negative) 01/07/19 22:16 2.0 /HPF (0.0-6.0) 01/07/19 22:16 2.0 /HPF (0.0-6.0) 01/07/19 22:16 Few /HPF 01/07/19 22:16 Plasma/Serum Alcohol < 0.01 % (0-0.07) 01/07/19 20:06 - Imaging and Cardiology Chest x-ray: image reviewed (no acute findings) Assessment and Plan Assessment and plan: 63-year-old man who presented to the hospital altered mental status and hypoglycemia patient has stated that he was taking his insulin and not really eating. Hypoglycemia Patient has received oral glucose, dextrose and food. since the patient took long-acting insulin, if his glucose falls again we'll put him on a dextrose drip Type 2 diabetes, insulin-dependent Check A1c, sliding scale insulin Venous stasis of lower extremities There is no skin breakdown at this time, monitor Hypertension, hyperlipidemia, neuropathy Continue home meds, Acute on chronic kidney disease Likely vasomotor nephropathy -IV fluids, and nephrology consults DVT prophylaxis; Lovenox Case management consult, patient has been homeless for 32 days. Hopefully they may be able to find him a personal longterm versus a [facility].
[2019-01-08] MEDS ORDERED: NACL 0.45% 1000 ML 1,000 ML IV ONE (01:17)
[2019-01-08] MEDS ORDERED: NORCO 10/325 ONE (02:44)
[2019-01-08 06:36] VITALS: BP 147/71
[2019-01-08] MEDS ORDERED: HumaLOG SUB-Q SCH (07:30)
[2019-01-08] MEDS ORDERED: HALFPRIN EC PO SCH (10:00)
[2019-01-08] MEDS ORDERED: CATAPRES PO SCH (10:00)
[2019-01-08] MEDS ORDERED: LYRICA PO SCH (10:00)
[2019-01-08] MEDS ORDERED: CARDIZEM CD PO SCH (10:00)
[2019-01-08] MEDS ORDERED: DIOVAN PO SCH (10:00)
[2019-01-08] MEDS ORDERED: LOVENOX SUB-Q SCH (10:00)
[2019-01-08] MEDS ORDERED: SODIUM CHLORIDE FLUSH SYRINGE 10 ML IV SCH (10:00)
--- NOTE | 2019-01-08 10:02 | Consultation ---
History of Present Illness - Reason for Consult Consult date: 01/08/19 acute renal failure, chronic renal failure Requesting physician: REZA SINCLAIR - History of Present Illness This is a 63 yo AAM with past medical history of type 2 DM, hypertension, hyperlipidemia, CKD stage 3, who was BIBEMS after being found slumped over near public storage. He was altered and less responsive. EMS was called and was found to have a glucose of 25. EMS gave him some oral glucose after which she improved. The patient admits that he is currently homeless, but he has been taking his insulin. patient was admitted for treatment of hypoglycemia. labs showed elevated BUN/Cr at 23/2.5mg/dl for which renal consult is requested. pt examined at bedside this AM, pt is awake, alert, in no acute distress, reports that he has to leave, b/c he has an appointment at [place]. He states that he has underlying CKD and sees a museum exhibit technician as outpatient, however cannot recall the name. denies recent NSAIDs use, IV contrast exposure. Past History Past Medical History: diabetes, hypertension, hyperlipidemia, renal failure Past Surgical History: Other (Nailing of right tibia status post fracture, 2018) Social history: other (22 pack years, quit 25 years ago, patient is currently homeless and uses a walker for ambulation. He states that he has been homeless now for 32 days and is not coping well., previous history of substance abuse, quit over 30 years ago) Family history: no significant family history Medications and Allergies Allergies Allergy/AdvReac Type Severity Reaction Status Date / Time No Known Drug Allergies Allergy n/a Verified 03/20/14 08:26 Home Medications Medication Instructions Recorded Confirmed Last Taken Type Insulin Detemir [Levemir Flexpen] 35 unit SQ BID 03/12/14 01/07/19 02/18/17 18:00 History dilTIAZem CD [Cardizem CD] 320 mg PO QDAY 03/12/14 01/07/19 02/19/17 07:30 History Aspirin [Adult Low Dose Aspirin EC] 81 mg PO DAILY 02/14/17 01/07/19 02/14/17 11:00 History Simvastatin (Nf) [Zocor TAB] 20 mg PO DAILY 02/19/17 01/07/19 02/19/17 07:30 History cloNIDine [Catapres] 0.2 mg PO BID #30 tablet 02/23/17 01/07/19 Unknown Rx HYDROcodone/APAP 10-325 [[place] 1 tab PO Q8HR PRN 01/07/19 01/07/19 Unknown History 10-325 mg TAB] Pregabalin [Lyrica] 1 tab PO BID 01/07/19 01/07/19 Unknown History Tradjenta 50 tab PO QAM 01/07/19 01/07/19 Unknown History Valsartan [Diovan] 1 tab PO DAILY 01/07/19 01/07/19 Unknown History traZODone [Desyrel] 1 tab PO HS 01/07/19 01/07/19 Unknown History Active Meds: Active Medications Acetaminophen (Tylenol) 650 mg PO Q4H PRN PRN Reason: Pain MILD(1-3)/Fever >100.5/WADE Acetaminophen/Hydrocodone Bitart ([place] 10/325) 1 each PO Q8H PRN PRN Reason: Pain , Severe (7-10) Last Admin: 01/08/19 02:44 Dose: 1 each Documented by: Aspirin (Halfprin Ec) 81 mg PO DAILY TIGIST Clonidine HCl (Catapres) 0.2 mg PO BID T[facility] Dextrose (D50w (25gm) Syringe) 50 ml IV PRN PRN PRN Reason: Hypoglycemia Diltiazem HCl (Cardizem Cd) 300 mg PO QDAY [facility] Enoxaparin Sodium (Lovenox) 30 mg SUB-Q QDAY T[facility] Sodium Chloride (Nacl 0.45% 1000 Ml) 1,000 mls @ 100 mls/hr IV DIRECT TIG[facility] Stop: 01/09/19 23:44 Last Admin: 01/08/19 01:25 Dose: 100 mls/hr Documented by: Insulin Human Lispro (Humalog) 0 unit SUB-Q ACHS TIGIST; Protocol Ondansetron HCl (Zofran) 4 mg IV Q8H PRN PRN Reason: Nausea And Vomiting Pravastatin Sodium (Pravachol) 40 mg PO QHS [facility] Pregabalin (Lyrica) 50 mg PO BID TIG[facility] Sodium Chloride (Sodium Chloride Flush Syringe 10 Ml) 10 ml IV BID TIGIST Sodium Chloride (Sodium Chloride Flush Syringe 10 Ml) 10 ml IV PRN PRN PRN Reason: LINE FLUSH Trazodone HCl (Desyrel) 100 mg PO HS TIG[facility] Valsartan (Diovan) 80 mg PO DAILY TIG[facility] Review of Systems All systems: negative Constitutional: weakness Neurological: change in mentation, confusion Exam - Vital Signs Vital signs: Vital Signs Temp Pulse Resp BP Pulse Ox 97.6 F 60 12 142/73 94 01/07/19 19:45 01/07/19 19:45 01/07/19 19:45 01/07/19 19:45 01/07/19 19:45 - General Appearance General appearance: well-developed, well-nourished, appears stated age, obese EENT: ATNC, PERRL, mucous membranes moist Neck: Present: neck supple Respiratory: Clear to Ascultation Heart: regular, S1S2 Gastrointestinal: Present: normoactive bowel sounds Integumentary: no rash, other (no edema ) Neurologic: no focal deficit, alert and oriented x3, strength 5/5, CN 3-12 intact Psychiatric: mood/affect appropriate, cooperative Results - Lab Results 01/07/19 20:06 01/08/19 05:14 Most recent lab results Calcium 9.0 mg/dL (8.4-10.2) 01/08/19 05:14 Assessment and Plan - Patient Problems (1) Hypoglycemia Current Visit: Yes Status: Acute Plan to address problem: likely secondary to prolonged insulin effect in the setting of CKD. glucose improved after D50 IV and oral glucose administration. Glucose control as per primary attending (2) Chronic kidney disease, stage III (moderate) Current Visit: Yes Status: Acute Plan to address problem: most likely secondary to underlying diabetic nephropathy/hypertensive nephrosclerosis. pt states that is baseline Cr is around 2-3. UA shows e/o proteinuria without hematuria, likely chronic. No acute uremic complication/electrolyte imbalance noted no further work up needed at present. pt can follow up with his outpatient museum exhibit technician. (3) IDDM (insulin dependent diabetes mellitus) Current Visit: No Status: Acute Plan to address problem: glucose control as per primary attending (4) HTN (hypertension) Current Visit: No Status: Chronic Qualifiers: Hypertension type: essential hypertension Qualified Code(s): I10 - Essential (primary) hypertension Plan to address problem: Monitor BP on current meds
--- NOTE | 2019-01-08 14:41 | Discharge Summary ---
Providers - Providers Date of Admission: 01/07/19 23:44 Date of discharge: 01/08/19 Attending physician: ADRIANA DAVENPORT 01/07/19 Consult to Case Management [CONS] Routine Services Needed at Discharge: Other Notified:: copy left for cm Comment:: homeless 01/07/19 23:44 Consult to Physician [CONS] Routine Comment: Consulting Provider: ESTHER ZAMORA Physician Instructions: Reason For Exam: kwasi on ckd 01/07/19 23:45 Consult to Dietitian/Nutrition [CONS] Routine Physician Instructions: Reason For Exam: Reason for Consult: Diet education [facility] Hospital[facility] Condition: Fair Pertinent studies: CXR Hospital course: 63-year-old man with history of diabetes and hypertension who presented to the hospital. He was brought in after being found slumped over near public storage. He was altered and less responsive. EMS was called and was found to have a glucose of 25. EMS gave him some oral glucose after which she improved. The patient admits that he is currently homeless, he has been taking his insulin and admits to not eating so well. He was apparently given dextrose in the ER because his glucose again dropped to the 40s,he was given food after which the patient was alert and improved. Discharge diagnosis: /Acute metabolic encephalopathy due to hypoglycemia, POA, resolved /Hypoglycemia, resolved Patient has received oral glucose, dextrose and food. /Type 2 diabetes, insulin-dependent A1c 5.2, managed with sliding scale insulin, discharged with tradjenta only, held insulin on discharge /Venous stasis of lower extremities There is no skin breakdown at this time, monitor /Hypertension, hyperlipidemia, neuropathy Continue home meds, /Acute on chronic kidney disease Likely vasomotor nephropathy -IV fluids, and nephrology consults /DVT prophylaxis; Lovenox Disposition: - TO HOME OR SELFCARE Time spent for discharge: 34 minutes Exam - Physical Exam Narrative exam: General appearance: Present: no acute distress, well-nourished - EENT Eyes: Present: PERRL ENT: hearing intact, clear oral mucosa - Neck Neck: Present: supple, normal ROM - Respiratory Respiratory effort: normal Respiratory: bilateral: CTA - Cardiovascular Heart Sounds: Present: S1 & S2. Absent: rub, click - Extremities Extremities: pulses symmetrical Extremity abnormal: edema (right greater than left lower extremity. Pitting edema noted on both lower extremities, with stasis skin changes) Peripheral Pulses: within normal limits - Abdominal General gastrointestinal: Present: soft, non-tender, non-distended, normal bowel sounds Male genitourinary: Present: normal - Integumentary Integumentary: Present: clear, warm, dry - Musculoskeletal Musculoskeletal: gait normal, strength equal bilaterally - Psychiatric Psychiatric: appropriate mood/affect, intact judgment & insight - Neurologic Neurologic: CNII-XII intact, moves all extremities - Constitutional Vitals: Temp Pulse Resp BP Pulse Ox 97.6 F 71 13 147/71 95 01/07/19 19:45 01/08/19 06:30 01/08/19 06:30 01/08/19 06:30 01/08/19 06:30 Plan Activity: advance as tolerated Weight Bearing Status: Weight Bear as Tolerated Diet: diabetic Follow up with: EMMA DANTRUXTON MD CANDIDO [Primary Care Provider] - 3-5 Days TATIANNA NUNES MD [Staff Physician] - 7 Days
[2019-01-08] MEDS ORDERED: DESYREL PO SCH (22:00)
[2019-01-08] MEDS ORDERED: PRAVACHOL PO SCH (22:00)
== END 2019-01-08 10:00 | disposition home or self-care (01) ==
LOC: ED 18:53 → 3A 23:44
PROVIDERS: ADMIT Internal Medicine; ATTEND Internal Medicine
DX: E11.649 Type 2 diabetes mellitus with hypoglycemia without coma (principal); R55 Syncope and collapse; E11.22 Type 2 diabetes mellitus with diabetic chronic kidney disease; N17.9 Acute kidney failure, unspecified; E11.40 Type 2 diabetes mellitus with diabetic neuropathy, unspecified; I12.9 Hypertensive chronic kidney disease with stage 1 through stage 4 chronic kidney disease, or unspecified chronic kidney disease; N18.9 Chronic kidney disease, unspecified; E78.5 Hyperlipidemia, unspecified; I87.8 Other specified disorders of veins
CPT/HCPCS: 36415; 71046; 80048; 80053; 81001; 82962; 83036; 85025; 93005; 93010; 96360; 96361; 99284; G0378; J7030; 80320; G0480

== ENCOUNTER 2019-01-19 | Emergency (ER) | payer MEDICARE ==
[2019-01-19] MEDS ORDERED: TYLENOL PO ONE (00:59)
--- NOTE | 2019-01-19 00:59 | Emergency Department Report ---
ED General Adult HPI - General Chief complaint: Extremity Injury, Lower Stated complaint: VARICOSE VEINS ISSUES Time Seen by Provider: 01/19/19 00:57 Source: patient, EMS Mode of arrival: Wheelchair Limitations: Physical Limitation - History of Present Illness Initial comments: patient presents to ER with bilateral leg pain after walking. States pain is worse in left leg. no fever, chills or nightsweats. EMS picked him up at a fast food restaurant. Patient states he has not eaten since yesterday. Denies any chest pain, sob, n/v. he has a h/o ckd, dm, htn, chronic leg issues. He took a norco today for his pain which helped. - Related Data Home Medications Medication Instructions Recorded Confirmed Last Taken dilTIAZem CD [Cardizem CD] 320 mg PO QDAY 03/12/14 01/07/19 02/19/17 07:30 Aspirin [Adult Low Dose Aspirin EC] 81 mg PO DAILY 02/14/17 01/07/19 02/14/17 11:00 Simvastatin (Nf) [Zocor TAB] 20 mg PO DAILY 02/19/17 01/07/19 02/19/17 07:30 HYDROcodone/APAP 10-325 [[place] 1 tab PO Q8HR PRN 01/07/19 01/07/19 Unknown 10-325 mg TAB] Pregabalin [Lyrica] 1 tab PO BID 01/07/19 01/07/19 Unknown Tradjenta 50 tab PO QAM 01/07/19 01/07/19 Unknown Valsartan [Diovan] 1 tab PO DAILY 01/07/19 01/07/19 Unknown traZODone [Desyrel] 1 tab PO HS 01/07/19 01/07/19 Unknown Previous Rx's Medication Instructions Recorded Last Taken Type cloNIDine [Catapres] 0.2 mg PO BID #30 tablet 02/23/17 Unknown Rx Allergies Allergy/AdvReac Type Severity Reaction Status Date / Time No Known Drug Allergies Allergy n/a Verified 03/20/14 08:26 ED Review of Systems ROS: Stated complaint: VARICOSE VEINS ISSUES Other details as noted in HPI Comment: All other systems reviewed and negative Cardiovascular: denies: dyspnea on exertion Endocrine: denies: flushing Gastrointestinal: denies: abdominal pain Genitourinary: denies: urgency Musculoskeletal: joint swelling, arthralgia ED Past Medical Hx - Past Medical History Previous Medical History?: Yes Hx Hypertension: Yes (2008) Hx Congestive Heart Failure: No Hx Diabetes: Yes Hx Arthritis: No Hx Asthma: No Hx COPD: No - Surgical History Past Surgical History?: Yes Additional Surgical History: Righ leg surgery 01-13-2018 - Social History Smoking Status: Never Smoker - Medications Home Medications: Home Medications Medication Instructions Recorded Confirmed Last Taken Type dilTIAZem CD [Cardizem CD] 320 mg PO QDAY 03/12/14 01/07/19 02/19/17 07:30 History Aspirin [Adult Low Dose Aspirin EC] 81 mg PO DAILY 02/14/17 01/07/19 02/14/17 11:00 History Simvastatin (Nf) [Zocor TAB] 20 mg PO DAILY 02/19/17 01/07/19 02/19/17 07:30 History cloNIDine [Catapres] 0.2 mg PO BID #30 tablet 02/23/17 01/07/19 Unknown Rx HYDROcodone/APAP 10-325 [[place] 1 tab PO Q8HR PRN 01/07/19 01/07/19 Unknown History 10-325 mg TAB] Pregabalin [Lyrica] 1 tab PO BID 01/07/19 01/07/19 Unknown History Tradjenta 50 tab PO QAM 01/07/19 01/07/19 Unknown History Valsartan [Diovan] 1 tab PO DAILY 01/07/19 01/07/19 Unknown History traZODone [Desyrel] 1 tab PO HS 01/07/19 01/07/19 Unknown History ED Physical Exam - General Limitations: Physical Limitation General appearance: alert, in no apparent distress - Head Head exam: Present: atraumatic, normocephalic - Eye Eye exam: Present: normal appearance, PERRL, EOMI - ENT ENT exam: Present: normal exam - Neck Neck exam: Present: normal inspection - Respiratory Respiratory exam: Present: normal lung sounds bilaterally - Cardiovascular Cardiovascular Exam: Present: regular rate, normal rhythm - GI/Abdominal GI/Abdominal exam: Present: soft, normal bowel sounds - Extremities Exam Extremities exam: Present: pedal edema, other (acanthosis nigricans bilat lower ext.) ED Course Vital Signs 01/19/19 01/19/19 00:32 01:14 Temperature 97.9 F Pulse Rate 77 Respiratory 18 20 Rate Blood Pressure 164/84 O2 Sat by Pulse 97 97 Oximetry Critical care attestation.: If time is entered above; I have spent that time in minutes in the direct care of this critically ill patient, excluding procedure time. ED Disposition Clinical Impression: Chronic venous stasis Peripheral neuropathy Qualifiers: Peripheral neuropathy type: polyneuropathy, other Qualified Code(s): G62.89 - Other specified polyneuropathies Disposition: - TO HOME OR SELFCARE Is pt being admited?: No Does the pt Need Aspirin: No Condition: Stable Instructions: Diabetic Neuropathy (ED), Peripheral Neuropathy (ED) Referrals: MATTEO HILL DO [Staff Physician] - 3-5 Days
[2019-01-19 02:19] VITALS: BP 171/74
== END 2019-01-19 06:48 | disposition home or self-care (01) ==
LOC: ED
DX: I87.8 Other specified disorders of veins (principal); G89.29 Other chronic pain; I10 Essential (primary) hypertension; E11.9 Type 2 diabetes mellitus without complications; Z79.899 Other long term (current) drug therapy; Z98.890 Other specified postprocedural states
CPT/HCPCS: 82962

== ENCOUNTER 2019-02-06 00:53 | Observation (INO) | payer MEDICARE ==
[2019-02-06 03:53] LABS: Basophils % (Auto) 0.6 % (0.0-1.8); Eosinophils # (Auto) 0.1 K/mm3 (0.0-0.4); Hematocrit 38.4 % (35.5-45.6); Hemoglobin 12.9 gm/dl (11.8-15.2); Lymphocytes # (Auto) 1.3 K/mm3 (1.2-5.4); Lymphocytes % (Auto) 16.7 % (13.4-35.0); Mean Corpuscular HGB Conc 34 % (32-34); Mean Corpuscular Volume 95 fl (84-94); Monocytes % (Auto) 12.7 % (0.0-7.3); Platelet Count 268 K/mm3 (140-440); Red Blood Count 4.04 M/mm3 (3.65-5.03); Red Cell Distribution Width 13.7 % (13.2-15.2)
--- NOTE | 2019-02-06 03:57 | Emergency Department Report ---
ED Fall HPI - General Chief Complaint: Fall Stated Complaint: L ARM/R LEG PAIN Time Seen by Provider: 02/06/19 02:37 Source: patient Mode of arrival: Ambulatory - History of Present Illness Initial Comments: Patient is a 64-year-old male who presents to the emergency room after a fall that occurred just prior to arrival. Patient has a rolling walker and states that he was sitting on the walker. pt states that he felt dizzy and fell over. It was a ground-level fall. Patient is complaining of lower back pain. He states he did hit his head when he fell. Patient states that he believes he did have loss of consciousness. He denies any numbness, weakness, bowel or bladder incontinence. He denies any headache, chest pain, abdominal pain, shortness of breath, nausea, vomiting, any other injury or symptoms. He has a past medical history of diabetes, CKD and high blood pressure. Denies any allergies to medications. - Related Data Home Medications Medication Instructions Recorded Confirmed Last Taken dilTIAZem CD [Cardizem CD] 320 mg PO QDAY 03/12/14 02/07/19 02/19/17 07:30 Aspirin [Adult Low Dose Aspirin EC] 81 mg PO DAILY 02/14/17 02/07/19 02/14/17 11:00 Simvastatin (Nf) [Zocor TAB] 20 mg PO DAILY 02/19/17 02/07/19 02/19/17 07:30 HYDROcodone/APAP 10-325 [[place] 1 tab PO Q8HR PRN 01/07/19 02/07/19 Unknown 10-325 mg TAB] Pregabalin [Lyrica] 1 tab PO BID 01/07/19 02/07/19 Unknown Tradjenta 50 tab PO QAM 01/07/19 02/07/19 Unknown Valsartan [Diovan] 1 tab PO DAILY 01/07/19 02/07/19 Unknown traZODone [Desyrel] 1 tab PO HS 01/07/19 02/07/19 Unknown Previous Rx's Medication Instructions Recorded Last Taken Type cloNIDine [Catapres] 0.2 mg PO BID #30 tablet 02/23/17 Unknown Rx Allergies Allergy/AdvReac Type Severity Reaction Status Date / Time No Known Drug Allergies Allergy n/a Verified 03/20/14 08:26 ED Review of Systems ROS: Stated complaint: L ARM/R LEG PAIN Other details as noted in HPI Comment: All other systems reviewed and negative ED Past Medical Hx - Past Medical History Previous Medical History?: Yes Hx Hypertension: Yes (2008) Hx Congestive Heart Failure: No Hx Diabetes: Yes Hx Arthritis: No Hx Asthma: No Hx COPD: No - Surgical History Additional Surgical History: R leg surgery 01-13-2018 - Social History Smoking Status: Never Smoker Substance Use Type: None - Medications Home Medications: Home Medications Medication Instructions Recorded Confirmed Last Taken Type dilTIAZem CD [Cardizem CD] 320 mg PO QDAY 03/12/14 02/07/19 02/19/17 07:30 History Aspirin [Adult Low Dose Aspirin EC] 81 mg PO DAILY 02/14/17 02/07/19 02/14/17 11:00 History Simvastatin (Nf) [Zocor TAB] 20 mg PO DAILY 02/19/17 02/07/19 02/19/17 07:30 History cloNIDine [Catapres] 0.2 mg PO BID #30 tablet 02/23/17 02/07/19 Unknown Rx HYDROcodone/APAP 10-325 [[place] 1 tab PO Q8HR PRN 01/07/19 02/07/19 Unknown History 10-325 mg TAB] Pregabalin [Lyrica] 1 tab PO BID 01/07/19 02/07/19 Unknown History Tradjenta 50 tab PO QAM 01/07/19 02/07/19 Unknown History Valsartan [Diovan] 1 tab PO DAILY 01/07/19 02/07/19 Unknown History traZODone [Desyrel] 1 tab PO HS 01/07/19 02/07/19 Unknown History ED Physical Exam - General Limitations: No Limitations General appearance: alert, in no apparent distress - Head Head exam: Present: normocephalic, other (scalp abrasion present to the frontal scalp, no laceration) - Eye Eye exam: Present: normal appearance - ENT ENT exam: Present: mucous membranes moist - Neck Neck exam: Present: normal inspection, full ROM. Absent: tenderness - Respiratory Respiratory exam: Present: normal lung sounds bilaterally. Absent: respiratory distress, wheezes, rales, rhonchi, stridor, chest wall tenderness, accessory muscle use, decreased breath sounds, prolonged expiratory - Cardiovascular Cardiovascular Exam: Present: regular rate, normal rhythm, normal heart sounds. Absent: systolic murmur, diastolic murmur, rubs, gallop - GI/Abdominal GI/Abdominal exam: Present: soft, normal bowel sounds. Absent: distended, tenderness, guarding, rebound, rigid - Back Exam Back exam: Present: normal inspection, full ROM, vertebral tenderness (paraspina l and midline L-spine tenderness to palpation, no midline C-spine or T-spine tenderness, no obvious step offs or deformities). Absent: paraspinal tenderness - Neurological Exam Neurological exam: Present: alert, oriented X3, CN II-XII intact, other (equal accounts payable specialist strength, 5/5 strength in the BUE/BLE ) - Psychiatric Psychiatric exam: Present: normal affect, normal mood - Skin Skin exam: Present: warm, dry ED Course Vital Signs 02/06/19 02/06/19 01:20 07:30 Temperature 99.1 F 98.5 F Pulse Rate 98 H 92 H Respiratory 18 19 Rate Blood Pressure 185/85 Blood Pressure 179/89 [Left] O2 Sat by Pulse 95 94 Oximetry - Consultations Consultation #1: 02/06/19 7:[address] Butterfield, hospitalist regarding pt and results, will admit pt to the hospital, advised to admit under Dr. Tomlinson and advised to place pt under observation status, hospitalist. bridge orders placed. ED Medical Decision Making - Lab Data Result diagrams: 02/06/19 03:29 02/07/19 04:39 Lab Results 02/06/19 02/06/19 02/06/19 Range/Units 03:29 03:29 03:29 WBC 7.6 (4.5-11.0) K/mm3 RBC 4.04 (3.65-5.03) M/mm3 Hgb 12.9 (11.8-15.2) gm/dl Hct 38.4 (35.5-45.6) % MCV 95 H (84-94) fl MCH 32 (28-32) pg MCHC 34 (32-34) % RDW 13.7 (13.2-15.2) % Plt Count 268 (140-440) K/mm3 Lymph % (Auto) 16.7 (13.4-35.0) % Jones % (Auto) 12.7 H (0.0-7.3) % Eos % (Auto) 1.0 (0.0-4.3) % Baso % (Auto) 0.6 (0.0-1.8) % Lymph # 1.3 (1.2-5.4) K/mm3 Jones # 1.0 H (0.0-0.8) K/mm3 Eos # 0.1 (0.0-0.4) K/mm3 Baso # 0.0 (0.0-0.1) K/mm3 Seg Neutrophils % 69.0 (40.0-70.0) % Seg Neutrophils # 5.3 (1.8-7.7) K/mm3 Sodium 130 L (137-145) mmol/L Potassium 4.2 (3.6-5.0) mmol/L Chloride 95.9 L (98-107) mmol/L Carbon Dioxide 22 (22-30) mmol/L Anion Gap 16 mmol/L BUN 21 H (9-20) mg/dL Creatinine 2.1 H (0.8-1.5) mg/dL Estimated GFR 39 ml/min BUN/Creatinine Ratio 10 % Glucose 54 L (75-100) mg/dL POC Glucose (70-105) Calcium 9.2 (8.4-10.2) mg/dL Total Bilirubin 0.30 (0.1-1.2) mg/dL AST 25 (5-40) units/L ALT 15 (7-56) units/L Alkaline Phosphatase 80 (35-129) units/L Troponin T 0.039 H (0.00-0.029) ng/mL Total Protein 7.6 (6.3-8.2) g/dL Albumin 3.7 L (3.9-5) g/dL Albumin/Globulin Ratio 0.9 % Triglycerides 71 (2-149) mg/dL Cholesterol 89 (50-199) mg/dL LDL Cholesterol Direct 49 L (50-130) mg/dL HDL Cholesterol 30 L (40-59) mg/dL Cholesterol/HDL Ratio 2.96 % Plasma/Serum Alcohol < 0.01 (0-0.07) % 02/06/19 Range/Units 07:18 WBC (4.5-11.0) K/mm3 RBC (3.65-5.03) M/mm3 Hgb (11.8-15.2) gm/dl Hct (35.5-45.6) % MCV (84-94) fl MCH (28-32) pg MCHC (32-34) % RDW (13.2-15.2) % Plt Count (140-440) K/mm3 Lymph % (Auto) (13.4-35.0) % Jones % (Auto) (0.0-7.3) % Eos % (Auto) (0.0-4.3) % Baso % (Auto) (0.0-1.8) % Lymph # (1.2-5.4) K/mm3 Jones # (0.0-0.8) K/mm3 Eos # (0.0-0.4) K/mm3 Baso # (0.0-0.1) K/mm3 Seg Neutrophils % (40.0-70.0) % Seg Neutrophils # (1.8-7.7) K/mm3 Sodium (137-145) mmol/L Potassium (3.6-5.0) mmol/L Chloride (98-107) mmol/L Carbon Dioxide (22-30) mmol/L Anion Gap mmol/L BUN (9-20) mg/dL Creatinine (0.8-1.5) mg/dL Estimated GFR ml/min BUN/Creatinine Ratio % Glucose (75-100) mg/dL POC Glucose 196 H (70-105) Calcium (8.4-10.2) mg/dL Total Bilirubin (0.1-1.2) mg/dL AST (5-40) units/L ALT (7-56) units/L Alkaline Phosphatase (35-129) units/L Troponin T (0.00-0.029) ng/mL Total Protein (6.3-8.2) g/dL Albumin (3.9-5) g/dL Albumin/Globulin Ratio % Triglycerides (2-149) mg/dL Cholesterol (50-199) mg/dL LDL Cholesterol Direct (50-130) mg/dL HDL Cholesterol (40-59) mg/dL Cholesterol/HDL Ratio % Plasma/Serum Alcohol (0-0.07) % - EKG Data EKG shows normal: sinus rhythm, axis, intervals, QRS complexes, ST-T waves Rate: normal - EKG Data 02/06/19 07:25 LAE low voltage precordial leads - Radiology Data Radiology results: report reviewed CT CERVICAL SPINE WITHOUT CONTRAST INDICATION: fall, hit head. TECHNIQUE: Axial CT images of the spine were obtained. Sagittal and coronal reformatted images were produced. All CT scans at this location are performed using CT dose reduction for ALARA by means of automated exposure control. COMPARISON: None available. FINDINGS: ACUTE FRACTURE(S) OR SUBLUXATION: None. SPINAL DEGENERATIVE CHANGES: There is [id number] degenerative disc disease at C3-4, C4-5, C5- 6, and C6-7 with disc height loss and endplate osteophyte summation. There is bilateral neural f oraminal narrowing at C5-6 and C6-7 due to uncovertebral DJD. There is mild bilateral facet DJD from C2 through C5. PARASPINAL SOFT TISSUES: No soft tissue swelling or other acute abnormalities. ADDITIONAL FINDINGS: No significant additional findings. IMPRESSION: 1. No acute fracture or subluxation in the spine in neutral position. Signer Name: Regino Coleman MD Signed: 02/06/2019 5:04 AM Workstation Name: [id number] Transcribed By: AJAY Dictated By: Regino Coleman MD Electronically Authenticated By: Regino Coleman MD Signed Date/Time: 02/06/[address] LUMBAR SPINE WITHOUT CONTRAST INDICATION: fall, back pain. TECHNIQUE: Axial CT images of the spine were obtained. Sagittal and coronal reformatted images were produced. All CT scans at this location are performed using CT dose reduction for ALARA by means of automated exposure control. COMPARISON: Lumbar spine MRI on 08/22/2017. FINDINGS: ACUTE FRACTURE(S) OR SUBLUXATION: None. SPINAL DEGENERATIVE CHANGES: There is mild to moderate bilateral facet DJD from L3 through S1 and mild spondylosis in the lumbar spine. There is no appreciable significant spinal canal stenosis or neural foraminal narrowing. PARASPINAL SOFT TISSUES: No soft tissue swelling or other acute abnormalities. ADDITIONAL FINDINGS: There is mild atherosclerotic calcification in the abdominal aorta. IMPRESSION: 1. No acute fracture or subluxation in the spine in neutral position. Signer Name: Regino Coleman MD Signed: 02/06/2019 5:06 AM Workstation Name: [id number] Transcribed By: AJAY Dictated By: Regino Coleman MD Electronically Authenticated By: Regino Coleman MD Signed Date/Time: 02/06/[address] head/brain wo con INDICATION: fall, hit head. TECHNIQUE: Routine CT head without contrast. All CT scans at this location are performed using CT dose reduction for ALARA by means of automated exposure control. COMPARISON: None. FINDINGS: BRAIN / INTRACRANIAL CONTENTS: No acute hemorrhage, brain edema, mass effect, or hydrocephalus. Normal gonzalez-white differentiation. No chronic infarct or focal atrophy. Normal brain volume and ventricular/sulcal size for age. CALVARIUM/SKULL BASE/CRANIOCERVICAL JUNCTION: No evidence of fracture. ORBITS: No significant abnormality of visualized orbits. SINUSES / MASTOIDS: No significant abnormality of visualized sinuses and mastoid air cells. ADDITIONAL FINDINGS: None. IMPRESSION: 1. No acute post-traumatic intracranial abnormality. Signer Name: Regino Coleman MD Signed: 02/06/2019 5:02 AM Workstation Name: [id number] Transcribed By: AJAY Dictated By: Regino Coleman MD Electronically Authenticated By: Regino Coleman MD Signed Date/Time: 02/06/19 0502 CHEST 2 VIEWS INDICATION / CLINICAL INFORMATION: dizziness. COMPARISON: Chest x-ray on 01/07/2019. FINDINGS: SUPPORT DEVICES: None. HEART / MEDIASTINUM: Stable mild cardiomegaly. LUNGS / PLEURA: No significant pulmonary or pleural abnormality. No pneumothor ax. ADDITIONAL FINDINGS: No significant additional findings. IMPRESSION: 1. No acute findings. Signer Name: Regino Coleman MD Signed: 02/06/2019 4:08 AM Workstation Name: [id number] Transcribed By: AJAY Dictated By: Regino Coleman MD Electronically Authenticated By: Regino Coleman MD Signed Date/Time: 02/06/19 0408 - Medical Decision Making Patient is a 64-year-old male who presents to the emergency room after a fall that occurred just prior to arrival. Patient has a rolling walker and states that he was sitting on the walker. pt states that he felt dizzy and fell over. It was a ground-level fall. Patient is complaining of lower back pain. He states he did hit his head when he fell. Patient states that he believes he did have loss of consciousness. He denies any numbness, weakness, bowel or bladder incontinence. He denies any headache, chest pain, abdominal pain, shortness of breath, nausea, vomiting, any other injury or symptoms. He has a past medical history of diabetes, CKD and high blood pressure. Denies any allergies to medications. vitals with elevated BP, otherwise stable. EKG with LAE low voltage precordial leads, appears the same as prior EKG. on exam: scalp abrasion present to the frontal scalp, no laceration, paraspinal and midline L- spine tenderness to palpation, no midline C-spine or T-spine tenderness, no obvious step offs or deformities. labs significant for blood glucose of 57, pt given juice and fed and blood glucose improved, troponin is elevated. CKD is stable from previous labwork. pts has not had elevated troponins even despite his kidney disease. no signs of STEMI on EKG. CT and XR findings as above with no acute process. scalp abrasion cleaned with betadine, no foreign body. due to possible syncopal episode/dizziness and elevated troponin discussed case with Dr. Lai Zepeda, ED attending who recommended admission. spoke with Dr. Butterfield, hospitalist regarding pt and results, will admit pt to the hospital, advised to admit under Dr. Tomlinson and advised to place pt under observation status, hospitalist. bridge orders placed. pt admitted to the hospital. - Differential Diagnosis ICH, arrhythmia, vasovagal, hypoglycemia, fx, dislocation Critical care attestation.: If time is entered above; I have spent that time in minutes in the direct care of this critically ill patient, excluding procedure time. ED Disposition Clinical Impression: Dizziness, Hypoglycemia, Elevated troponin Syncope Qualifiers: Syncope type: unspecified Qualified Code(s): R55 - Syncope and collapse CKD (chronic kidney disease) Qualifiers: Chronic kidney disease stage: unspecified stage Qualified Code(s): N18.9 - Chronic kidney disease, unspecified HTN (hypertension) Qualifiers: Hypertension type: unspecified Qualified Code(s): I10 - Essential (primary) hypertension Scalp abrasion Qualifiers: Encounter type: initial encounter Qualified Code(s): S00.01XA - Abrasion of scalp, initial encounter Low back pain Qualifiers: Chronicity: acute Back pain laterality: bilateral Sciatica presence: without sciatica Qualified Code(s): M54.5 - Low back pain Disposition: OP ADMIT IP TO THIS HOSP Is pt being admited?: Yes Does the pt Need Aspirin: No Condition: Stable
--- NOTE | 2019-02-06 04:12 | XRay Report ---
CHEST 2 VIEWS INDICATION / CLINICAL INFORMATION: dizziness. COMPARISON: Chest x-ray on 01/07/2019. FINDINGS: SUPPORT DEVICES: None. HEART / MEDIASTINUM: Stable mild cardiomegaly. LUNGS / PLEURA: No significant pulmonary or pleural abnormality. No pneumothorax. ADDITIONAL FINDINGS: No significant additional findings. IMPRESSION: 1. No acute findings. Signer Name: Regino Coleman MD Signed: 02/06/2019 4:08 AM Workstation Name: [id number]
[2019-02-06 04:18] LABS: Albumin 3.7 g/dL (3.9-5); Calcium 9.2 mg/dL (8.4-10.2)
--- NOTE | 2019-02-06 05:06 | Cat Scan Report ---
CT head/brain wo con INDICATION: fall, hit head. TECHNIQUE: Routine CT head without contrast. All CT scans at this location are performed using CT dose reduction for ALARA by means of automated exposure control. COMPARISON: None. FINDINGS: BRAIN / INTRACRANIAL CONTENTS: No acute hemorrhage, brain edema, mass effect, or hydrocephalus. Emilee l gonzalez-white differentiation. No chronic infarct or focal atrophy. Normal brain volume and ventricula r/sulcal size for age. CALVARIUM/SKULL BASE/CRANIOCERVICAL JUNCTION: No evidence of fracture. ORBITS: No significant abnormality of visualized orbits. SINUSES / MASTOIDS: No significant abnormality of visualized sinuses and mastoid air cells. ADDITIONAL FINDINGS: None. IMPRESSION: 1. No acute post-traumatic intracranial abnormality. Signer Name: Regino Coleman MD Signed: 02/06/2019 5:02 AM Workstation Name: [id number]
--- NOTE | 2019-02-06 05:08 | Cat Scan Report ---
CT CERVICAL SPINE WITHOUT CONTRAST INDICATION: fall, hit head. TECHNIQUE: Axial CT images of the spine were obtained. Sagittal and coronal reformatted images were produced. Al l CT scans at this location are performed using CT dose reduction for ALARA by means of automated exp osure control. COMPARISON: None available. FINDINGS: ACUTE FRACTURE(S) OR SUBLUXATION: None. SPINAL DEGENERATIVE CHANGES: There is [id number] degenerative disc disease at C3-4, C4-5, C5-6, and C6-7 with disc height loss and endplate osteophyte summation. There is bilateral neural foramina l narrowing at C5-6 and C6-7 due to uncovertebral DJD. There is mild bilateral facet DJD from C2 thro ugh C5. PARASPINAL SOFT TISSUES: No soft tissue swelling or other acute abnormalities. ADDITIONAL FINDINGS: No significant additional findings. IMPRESSION: 1. No acute fracture or subluxation in the spine in neutral position. Signer Name: Regino Coleman MD Signed: 02/06/2019 5:04 AM Workstation Name: [id number]
[2019-02-06 05:10] LABS: Chol/HDL Ratio 2.96 %
--- NOTE | 2019-02-06 05:10 | Cat Scan Report ---
CT LUMBAR SPINE WITHOUT CONTRAST INDICATION: fall, back pain. TECHNIQUE: Axial CT images of the spine were obtained. Sagittal and coronal reformatted images were produced. Al l CT scans at this location are performed using CT dose reduction for ALARA by means of automated exp osure control. COMPARISON: Lumbar spine MRI on 08/22/2017. FINDINGS: ACUTE FRACTURE(S) OR SUBLUXATION: None. SPINAL DEGENERATIVE CHANGES: There is mild to moderate bilateral facet DJD from L3 through S1 and mil d spondylosis in the lumbar spine. There is no appreciable significant spinal canal stenosis or neura l foraminal narrowing. PARASPINAL SOFT TISSUES: No soft tissue swelling or other acute abnormalities. ADDITIONAL FINDINGS: There is mild atherosclerotic calcification in the abdominal aorta. IMPRESSION: 1. No acute fracture or subluxation in the spine in neutral position. Signer Name: Regino Coleman MD Signed: 02/06/2019 5:06 AM Workstation Name: [id number]
[2019-02-06] MEDS ORDERED: SODIUM CHLORIDE 0.9% 1000 ML 1,000 ML IV ONE (05:11)
[2019-02-06] MEDS ORDERED: VALSARTAN PO SCH (10:00)
[2019-02-06] MEDS ORDERED: NON-FORMULARY EACH (Simvastatin (Nf) 20 MG) PO SCH (10:00)
[2019-02-06] MEDS ORDERED: dilTIAZem CD 300 MG CAP PO SCH ×3 (10:00→14:26)
[2019-02-06] MEDS: HYDROcodone/ACETAMINOPHEN 10-325MG TAB PO PRN (13:24)
[2019-02-06] MEDS: VALSARTAN 40 MG TAB PO SCH (13:24)
[2019-02-06] MEDS: ASPIRIN EC 81 MG TAB PO SCH (13:25)
[2019-02-06] MEDS: PRAVASTATIN 40 MG TAB PO SCH (13:25)
--- NOTE | 2019-02-06 14:16 | History and Physical Report ---
History of Present Illness Date of examination: 02/06/19 Date of admission: 02/06/19 07:21 Chief complaint: Fall History of present illness: 64-year-old -Faro[place] male with past medical history significant for diabetes mellitus presented to the emergency department complaining of his CVA last night. Patient fell from his rolling walker and he hit his head. Patient said he lost his consciousness briefly. Patient brought to the emergency department and was evaluated in the emergency department and patient admitted for observation. Patient was sleepy during examination. It head was negative for fracture or hemorrhage. REVIEW OF SYSTEMS: GENERAL: no weight change, no fatigue, no fever HEAD: no head ache EYES: no blurry vision, no acute visual loss EARS: no hearing loss, no discharge, no earache NOSE: no stuffiness, no sneezing, no discharge MOUTH, THROAT AND NECK: no bleeding gums, no sore throat, no swollen neck CARDIAC: no palpitations, no dyspnea on exertion, no orthopnea, no PND, no edema, no chest pain RESPIRATORY: no shortness of breath, no wheeze, no cough, no sputum, no hemoptysis, no asthma GI: no decreased appetite, no nausea, no vomiting, no dysphagia, no diarrhea, no constipation, no abdominal pain URINARY: no change in frequency, no urgency, no polyuria, no hematuria, no incontinence MUSCULOSKELETAL: no muscle weakness, no pain, no joint stiffness NEUROLOGIC: no loss of sensation/numbness, no tingling, no tremors, no weakness/paralysis HEMATOLOGIC: no anemia, no easy bruising SKIN: no rashes ENDOCRINE: no heat/cold intolerance, no polyuria, no polydipsia, no thyroid problems PSYCHIATRIC: no anxiety, no depression, no suicidal ideations Past History Past Medical History: diabetes Past Surgical History: Other (history of leg and foot surgery) Social history: full code. denies: smoking, alcohol abuse, prescription drug abuse Family history: no significant family history Medications and Allergies Allergies Allergy/AdvReac Type Severity Reaction Status Date / Time No Known Drug Allergies Allergy n/a Verified 03/20/14 08:26 Home Medications Medication Instructions Recorded Confirmed Last Taken Type dilTIAZem CD [Cardizem CD] 320 mg PO QDAY 03/12/14 01/07/19 02/19/17 07:30 Histo ry Aspirin [Adult Low Dose Aspirin EC] 81 mg PO DAILY 02/14/17 01/07/19 02/14/17 11:00 History Simvastatin (Nf) [Zocor TAB] 20 mg PO DAILY 02/19/17 01/07/19 02/19/17 07:30 History cloNIDine [Catapres] 0.2 mg PO BID #30 tablet 02/23/17 01/07/19 Unknown Rx HYDROcodone/APAP 10-325 [[place] 1 tab PO Q8HR PRN 01/07/19 01/07/19 Unknown History 10-325 mg TAB] Pregabalin [Lyrica] 1 tab PO BID 01/07/19 01/07/19 Unknown History Tradjenta 50 tab PO QAM 01/07/19 01/07/19 Unknown History Valsartan [Diovan] 1 tab PO DAILY 01/07/19 01/07/19 Unknown History traZODone [Desyrel] 1 tab PO HS 01/07/19 01/07/19 Unknown History Active Meds: Active Medications Acetaminophen/Hydrocodone Bitart ([place] 10/325) 1 each PO Q8HR PRN PRN Reason: Pain , Severe (7-10) Last Admin: 02/06/19 13:24 Dose: 1 each Documented by: Aspirin (Halfprin Ec) 81 mg PO DAILY REPLACED BY [facility] Last Admin: 02/06/19 13:25 Dose: 81 mg Documented by: Diltiazem HCl (Cardizem Cd) 320 mg PO QDAY REPLACED BY [facility] Pravastatin Sodium (Pravachol) 40 mg PO DAILY REPLACED BY [facility] Last Admin: 02/06/19 13:25 Dose: 40 mg Documented by: Valsartan (Diovan) 80 mg PO QDAY REPLACED BY [facility] Last Admin: 02/06/19 13:24 Dose: 80 mg Documented by: Exam - Physical Exam Narrative exam: Not in cardiopulmonary distress. The patient is obese. Vital signs as documented. Head exam some bruise in the head. No scleral icterus . Neck is without jugular venous distension, thyromegaly, or carotid bruits. Lungs are clear to auscultation. Cardiac exam reveals regular rate and Rhythm. Abdominal exam reveals normal bowel sounds. Extremities are nonedematous and both femoral and pedal pulses are normal. COOPERER: Alert and oriented 3. No focal weakness. - Constitutional Vitals: Temp Pulse Resp BP Pulse Ox 98.4 F 91 H 18 195/99 96 02/06/19 13:13 02/06/19 13:13 02/06/19 13:13 02/06/19 13:13 02/06/19 13:13 Results - Labs CBC & Chem 7: 02/06/19 03:29 02/06/19 03:29 Labs: Laboratory Last Values WBC 7.6 K/mm3 (4.5-11.0) 02/06/19 03:29 RBC 4.04 M/mm3 (3.65-5.03) 02/06/19 03:29 Hgb 12.9 gm/dl (11.8-15.2) 02/06/19 03:29 Hct 38.4 % (35.5-45.6) 02/06/19 03:29 MCV 95 fl (84-94) H 02/06/19 03:29 MCH 32 pg (28-32) 02/06/19 03:29 MCHC 34 % (32-34) 02/06/19 03:29 RDW 13.7 % (13.2-15.2) 02/06/19 03:29 Plt Count 268 K/mm3 (140-440) 02/06/19 03:29 Lymph % (Auto) 16.7 % (13.4-35.0) 02/06/19 03:29 [place] % (Auto) 12.7 % (0.0-7.3) H 02/06/19 03:29 Eos % (Auto) 1.0 % (0.0-4.3) 02/06/19 03:29 Baso % (Auto) 0.6 % (0.0-1.8) 02/06/19 03:29 Lymph # 1.3 K/mm3 (1.2-5.4) 02/06/19 03:29 [place] # 1.0 K/mm3 (0.0-0.8) H 02/06/19 03:29 Eos # 0.1 K/mm3 (0.0-0.4) 02/06/19 03:29 Baso # 0.0 K/mm3 (0.0-0.1) 02/06/19 03:29 Seg Neutrophils % 69.0 % (40.0-70.0) 02/06/19 03:29 Seg Neutrophils # 5.3 K/mm3 (1.8-7.7) 02/06/19 03:29 Sodium 130 mmol/L (137-145) L 02/06/19 03:29 Potassium 4.2 mmol/L (3.6-5.0) 02/06/19 03:29 Chloride 95.9 mmol/L (98-107) L 02/06/19 03:29 Carbon Dioxide 22 mmol/L (22-30) 02/06/19 03:29 16 mmol/L 02/06/19 03:29 BUN 21 mg/dL (9-20) H 02/06/19 03:29 2.1 mg/dL (0.8-1.5) H 02/06/19 03:29 Estimated GFR 39 ml/min 02/06/19 03:29 10 % 02/06/19 03:29 Glucose 54 mg/dL (75-100) L 02/06/19 03:29 POC Glucose 125 (70-105) H 02/06/19 12:59 Calcium 9.2 mg/dL (8.4-10.2) 02/06/19 03:29 0.30 mg/dL (0.1-1.2) 02/06/19 03:29 AST 25 units/L (5-40) 02/06/19 03:29 ALT 15 units/L (7-56) 02/06/19 03:29 80 units/L (35-129) 02/06/19 03:29 0.039 ng/mL (0.00-0.029) H 02/06/19 03:29 7.6 g/dL (6.3-8.2) 02/06/19 03:29 3.7 g/dL (3.9-5) L 02/06/19 03:29 0.9 % 02/06/19 03:29 Triglycerides 71 mg/dL (2-149) 02/06/19 03:29 Cholesterol 89 mg/dL (50-199) 02/06/19 03:29 49 mg/dL (50-130) L 02/06/19 03:29 30 mg/dL (40-59) L 02/06/19 03:29 2.96 % 02/06/19 03:29 Plasma/Serum Alcohol < 0.01 % (0-0.07) 02/06/19 03:29 Assessment and Plan Assessment and plan: Fall - Patient fell last night and hit his head - Work up is negative for acute fracture - Need PT/OT evaluation Diabetes mellitus - Sliding-scale insulin, Accu-Chek, ADA diet, adjust insulin as needed Hypertension - Resume home medication - monitor and ajust as needed Acute renal failure - Creatinine this morning was 2.1 - We'll monitor, if no improvement, will consult nephrology Elevated troponin - In the setting of renal failure and uncontrolled hypertension - She didn't have any chest pain, EKG no STEMI - No workup is needed DVT prophylaxis - Heparin Disposition - Admit to to the floor for observation Advance Directives: Yes VTE prophylaxis?: Chemical Plan of care discussed with patient/family: Yes
[2019-02-06] MEDS ORDERED: ZOLPIDEM 5 MG TAB PO PRN (14:22)
[2019-02-06] MEDS ORDERED: oxyCODONE /ACETAMINOPHEN 5-325MG TAB PO PRN (14:22)
[2019-02-06] MEDS ORDERED: ONDANSETRON 4 MG/2 ML INJ IV PRN (14:22)
[2019-02-06] MEDS ORDERED: ACETAMINOPHEN 325 MG TAB PO PRN (14:22)
[2019-02-06] MEDS: cloNIDine 0.1 MG TAB PO SCH ×3 (17:17→22:32)
--- NOTE | 2019-02-06 18:15 | Consultation ---
History of Present Illness Consult date: 02/06/19 Reason for Consult: Syncope Chief complaint: Fall, loss of consciousness History of present illness: Patient is a 64 y/o man w/ a h/o DM, CKD, HTN, HLD. He states that he was at [facility] today, and sat down on his rolling walker. The next thing he remembers is that he had fallen on the floor. He is uncertain if he fell asleep, or if he lost consciousness, which caused the fall to the floor. Patient states that he has lost consciousness once earlier in the year, however denies any loss of bowel/bladder control, or tongue biting during the event. Patient states that he is currently homeless. He also complains of nausea and vomiting since he was admitted. Past History Past Medical History: diabetes, other (DM, CKD, HTN, HLD) Past Surgical History: Other (history of leg and foot surgery) Social history: no significant social history, full code, other (currently homeless). denies: smoking, alcohol abuse, prescription drug abuse Family history: no significant family history Medications and Allergies Allergies Allergy/AdvReac Type Severity Reaction Status Date / Time No Known Drug Allergies Allergy n/a Verified 03/20/14 08:26 Home Medications Medication Instructions Recorded Confirmed Last Taken Type dilTIAZem CD [Cardizem CD] 320 mg PO QDAY 03/12/14 01/07/19 02/19/17 07:30 History Aspirin [Adult Low Dose Aspirin EC] 81 mg PO DAILY 02/14/17 01/07/19 02/14/17 11:00 History Simvastatin (Nf) [Zocor TAB] 20 mg PO DAILY 02/19/17 01/07/19 02/19/17 07:30 History cloNIDine [Catapres] 0.2 mg PO BID #30 tablet 02/23/17 01/07/19 Unknown Rx HYDROcodone/APAP 10-325 [[place] 1 tab PO Q8HR PRN 01/07/19 01/07/19 Unknown History 10-325 mg TAB] Pregabalin [Lyrica] 1 tab PO BID 01/07/19 01/07/19 Unknown History Tradjenta 50 tab PO QAM 01/07/19 01/07/19 Unknown History Valsartan [Diovan] 1 tab PO DAILY 01/07/19 01/07/19 Unknown History traZODone [Desyrel] 1 tab PO HS 01/07/19 01/07/19 Unknown History Active Meds: Active Medications Acetaminophen (Tylenol) 650 mg PO Q4H PRN PRN Reason: Pain MILD(1-3)/Fever >100.5/WADE Acetaminophen/Hydrocodone Bitart ([place] 10/325) 1 each PO Q8HR PRN PRN Reason: Pain , Severe (7-10) Last Admin: 02/06/19 13:24 Dose: 1 each Documented by: Aspirin (Halfprin Ec) 81 mg PO DAILY [facility] Last Admin: 02/06/19 13:25 Dose: 81 mg Documented by: Clonidine HCl (Catapres) 0.1 mg PO Q12HR [facility] Diltiazem HCl (Cardizem Cd) 300 mg PO QDAY [facility] Docusate Sodium (Colace) 100 mg PO BID [facility] Famotidine (Pepcid) 10 mg PO BID [facility] Heparin Sodium (Porcine) (Heparin) 5,000 unit SUB-Q Q8HR [facility] Hydralazine HCl (Apresoline) 20 mg IV Q4HR PRN PRN Reason: Hypertension Ondansetron HCl (Zofran) 4 mg IV Q8H PRN PRN Reason: Nausea And Vomiting Last Admin: 02/06/19 16:56 Dose: 4 mg Documented by: Oxycodone/Acetaminophen (Percocet 5/325) 1 tab PO Q6H PRN PRN Reason: Pain, Moderate (4-6) Pravastatin Sodium (Pravachol) 40 mg PO DAILY [facility] Last Admin: 02/06/19 13:25 Dose: 40 mg Documented by: Sodium Chloride (Sodium Chloride Flush Syringe 10 Ml) 10 ml IV BID [facility] Last Admin: 02/06/19 17:17 Dose: 10 ml Documented by: Sodium Chloride (Sodium Chloride Flush Syringe 10 Ml) 10 ml IV PRN PRN PRN Reason: LINE FLUSH Valsartan (Diovan) 80 mg PO QDAY [facility] Last Admin: 02/06/19 13:24 Dose: 80 mg Documented by: Zolpidem Tartrate (Ambien) 5 mg PO QHS PRN PRN Reason: Insomnia Review of Systems All systems: negative Gastrointestinal: abdominal pain, nausea, vomiting Musculoskeletal: other (pain in legs and arms after fall) Neurological: syncope Physical Examination - Vital Signs Vital Signs: Vital Signs Temp Pulse Resp BP Pulse Ox 99.1 F 98 H 18 185/85 95 02/06/19 01:20 02/06/19 01:20 02/06/19 01:20 02/06/19 01:20 02/06/19 01:20 - Physical Exam Narrative exam: Patient is alert, awake, oriented x4. Follows complex commands. PERRL, EOMI, decreased vision in left eye which is chronic, VFF in right eye, no facial weakness, b/l intact to LT. 5/5 strength in b/l UE and RLE, 3/5 strength in LLE limited due to pain in leg after fall. B/l intact to LT. B/l intact to FTN and HTS. 2+ reflexes throughout. - Constitutional General appearance: uncomfortable - EENT EENT: Present: ATNC, PERRL, mucous membranes moist - Respiratory Respiratory: Present: lungs clear, normal breath sounds - Cardiovascular Cardiovascular: Present: regular rate, normal S1, normal S2 Extremities: Present: no clubbing, cyanosis, no inflammation - Gastrointestinal Gastrointestinal: Present: hypoactive bowel sounds, other (moderate tenderness noted in all quadrants. ) - Integumentary Integumentary: Present: normal - Musculoskeletal Musculoskeletal: Present: no fluid collection - Psychiatric Psychiatric: Present: mood/affect appropriate Results - Laboratory Findings CBC and BMP: 02/06/19 03:29 02/06/19 03:29 Abnormal Lab Findings: Abnormal Labs 02/06/19 02/06/19 02/06/19 03:29 03:29 07:18 MCV 95 H [place] % (Auto) 12.7 H [place] # 1.0 H Sodium 130 L Chloride 95.9 L BUN 21 H Creatinine 2.1 H Glucose 54 L POC Glucose 196 H Troponin T 0.039 H Albumin 3.7 L LDL Cholesterol Direct 49 L HDL Cholesterol 30 L 02/06/19 12:59 MCV [place] % (Auto) [place] # Sodium Chloride BUN Creatinine Glucose POC Glucose 125 H Troponin T Albumin LDL Cholesterol Direct HDL Cholesterol Assessment and Plan Patient is a 64 y/o man w/ a h/o DM, CKD, HTN, HLD, who p/w fall and possible loss of consciousness while at [facility]. According to the patient's clinical findings, it is possible that he's had a syncopal event. Alternatively the patient may have fallen asleep and fallen, as he states that he is uncertain if he fell asleep or lost consciousness while sitting on the walker. Plan: 1. Syncope/fall: - CT head unremarkable - Check EEG - Recommend target normal BP, as BP has been elevated. - Recommend further workup of possible cardiogenic causes of syncope per primary team and cardiology - Telemetry monitoring while in house. - Recommend check orthostatic vital signs - Discussed with primary regarding onset of abdominal pain/nausea/vomiting, and recommend further workup per primary team. - Will continue to monitor neurologic status with serial neurologic exams. - Thank you for allowing me to take part in the care of this patient. Chacorta Maldonado MD Neurology
[2019-02-06] MEDS: hydrALAZINE 20 MG/1 ML INJ IV PRN ×2 (18:19→23:59)
[2019-02-06] MEDS: dilTIAZem CD 300 MG CAP PO SCH ×2 (18:19→22:32)
[2019-02-06] MEDS: METOCLOPRAMIDE 10 MG/2 ML INJ IV PRN ×2 (19:13→22:32)
[2019-02-06] MEDS: DOCUSATE SODIUM 100 MG CAP PO SCH (22:32)
[2019-02-06] MEDS: HEPARIN 5,000 UNIT/1 ML VIAL SUB-Q SCH (22:32)
[2019-02-06] MEDS: FAMOTIDINE 10 MG TAB PO SCH (22:32)
[2019-02-06] MEDS: ONDANSETRON 4 MG/2 ML INJ IV PRN (23:59)
[2019-02-07] MEDS: ONDANSETRON 4 MG/2 ML INJ IV PRN
[2019-02-07 04:02] VITALS: BP 176/76
[2019-02-07] MEDS: hydrALAZINE 20 MG/1 ML INJ IV PRN ×2 (04:07)
[2019-02-07] MEDS: HEPARIN 5,000 UNIT/1 ML VIAL SUB-Q SCH ×2 (05:53→13:04)
[2019-02-07 06:22] LABS: Calcium 9.1 mg/dL (8.4-10.2)
[2019-02-07] MEDS: HYDROcodone/ACETAMINOPHEN 10-325MG TAB PO PRN (08:55)
[2019-02-07] MEDS ORDERED: dilTIAZem CD 300 MG CAP PO SCH (10:00)
--- NOTE | 2019-02-07 10:38 | Consultation ---
History of Present Illness Consult date: 02/07/19 Requesting physician: DELGADO STEVENSON Consult reason: syncope History of present illness: The patient is a 64 y/o male with a history of DM, CKD, HTN, HLD, chronic venous insufficiency. He is followed by Dr. Gayatri Berkowitz at [place]. He presented for evaluation of questionable syncopal episode. He states that he was at [facility] yesterday and sat down on his rolling walker. The next thing he remembers is that he had fallen out of his walker and onto the floor. He is uncertain if he fell asleep, or if he lost consciousness, which caused the fall to the ground. He hit his head when he fell. He believes he was unconscious for approx 4-5 minutes. When he awoke, he felt dizzy. He denies any occurrence of chest pain, palpitations, n/v, diaphoresis. Echo done 08/2018 showed EF 55%, mild LVH. PET MPI done 01/06/2019 was negative. Past History Past Medical History: diabetes, hypertension, hyperlipidemia, other (CKD) Past Surgical History: Other (history of leg and foot surgery) Social history: no significant social history, full code, other (currently homeless). denies: smoking, alcohol abuse, prescription drug abuse Family history: no significant family history Medications and Allergies Allergies Allergy/AdvReac Type Severity Reaction Status Date / Time No Known Drug Allergies Allergy n/a Verified 03/20/14 08:26 Home Medications Medication Instructions Recorded Confirmed Last Taken Type dilTIAZem CD [Cardizem CD] 320 mg PO QDAY 03/12/14 02/07/19 02/19/17 07:30 History Aspirin [Adult Low Dose Aspirin EC] 81 mg PO DAILY 02/14/17 02/07/19 02/14/17 11:00 History Simvastatin (Nf) [Zocor TAB] 20 mg PO DAILY 02/19/17 02/07/19 02/19/17 07:30 History cloNIDine [Catapres] 0.2 mg PO BID #30 tablet 02/23/17 02/07/19 Unknown Rx HYDROcodone/APAP 10-325 [[place] 1 tab PO Q8HR PRN 01/07/19 02/07/19 Unknown History 10-325 mg TAB] Pregabalin [Lyrica] 1 tab PO BID 01/07/19 02/07/19 Unknown History Tradjenta 50 tab PO QAM 01/07/19 02/07/19 Unknown History Valsartan [Diovan] 1 tab PO DAILY 01/07/19 02/07/19 Unknown History traZODone [Desyrel] 1 tab PO HS 01/07/19 02/07/19 Unknown History Active Meds: Active Medications Acetaminophen (Tylenol) 650 mg PO Q4H PRN PRN Reason: Pain MILD(1-3)/Fever >100.5/WADE Acetaminophen/Hydrocodone Bitart ([place] 10/325) 1 each PO Q8HR PRN PRN Reason: Pain , Severe (7-10) Last Admin: 02/07/19 08:55 Dose: 1 each Documented by: Aspirin (Halfprin Ec) 81 mg PO DAILY [facility] Last Admin: 02/06/19 13:25 Dose: 81 mg Documented by: Clonidine HCl (Catapres) 0.1 mg PO Q12HR [facility] Last Admin: 02/06/19 22:32 Dose: 0.1 mg Documented by: Diltiazem HCl (Cardizem Cd) 300 mg PO QDAY [facility] Last Admin: 02/06/19 22:32 Dose: 300 mg Documented by: Docusate Sodium (Colace) 100 mg PO BID [facility] Last Admin: 02/06/19 22:32 Dose: Not Given Documented by: Famotidine (Pepcid) 10 mg PO BID [facility] Last Admin: 02/06/19 22:32 Dose: 10 mg Documented by: Heparin Sodium (Porcine) (Heparin) 5,000 unit SUB-Q Q8HR [facility] Last Admin: 02/07/19 05:53 Dose: 5,000 unit Documented by: Hydralazine HCl (Apresoline) 20 mg IV Q4HR PRN PRN Reason: Hypertension Last Admin: 02/07/19 04:07 Dose: 20 mg Documented by: Metoclopramide HCl (Reglan) 10 mg IV Q6H PRN PRN Reason: Nausea And Vomiting Last Admin: 02/06/19 22:32 Dose: 10 mg Documented by: Ondansetron HCl (Zofran) 4 mg IV Q4H PRN PRN Reason: Nausea And Vomiting Last Admin: 02/07/19 00:00 Dose: 4 mg Documented by: Oxycodone/Acetaminophen (Percocet 5/325) 1 tab PO Q6H PRN PRN Reason: Pain, Moderate (4-6) Pravastatin Sodium (Pravachol) 40 mg PO DAILY [facility] Last Admin: 02/06/19 13:25 Dose: 40 mg Documented by: Sodium Chloride (Sodium Chloride Flush Syringe 10 Ml) 10 ml IV BID [facility] Last Admin: 02/06/19 22:39 Dose: 10 ml Documented by: Sodium Chloride (Sodium Chloride Flush Syringe 10 Ml) 10 ml IV PRN PRN PRN Reason: LINE FLUSH Valsartan (Diovan) 80 mg PO QDAY [facility] Last Admin: 02/06/19 13:24 Dose: 80 mg Documented by: Zolpidem Tartrate (Ambien) 5 mg PO QHS PRN PRN Reason: Insomnia Review of Systems Constitutional: no weight loss, no weight gain, no fever, no chills, no sweats Ears, nose, mouth and throat: no ear pain, no nose pain, no sinus pressure, no sinus pain Cardiovascular: syncope (questionable), lightheadedness, no chest pain, no orthopnea, no palpitations, no rapid/irregular heart beat, no edema, no shortness of breath, no dyspnea on exertion, no paroxysmal nocturnal dyspnea Respiratory: no cough, no shortness of breath, no dyspnea on exertion, no congestion, no wheezing, no pain on inspiration Gastrointestinal: no abdominal pain, no nausea, no vomiting, no diarrhea, no constipation, no change in bowel habits Genitourinary Male: no dysuria, no hematuria, no flank pain, no discharge, no urinary frequency, no urinary hesitancy Musculoskeletal: no neck stiffness, no neck pain, no shooting arm pain, no arm numbness/tingling, no low back pain, no shooting leg pain Integumentary: no rash, no pruritis, no redness, no sores, no wounds Neurological: syncope, no paralysis, no weakness, no parathesias, no numbness, no tingling, no seizures Psychiatric: no anxiety Endocrine: no cold intolerance, no heat intolerance Hematologic/Lymphatic: no easy bruising, no easy bleeding Allergic/Immunologic: no urticaria, no wheezing Physical Examination Vital Signs Temp Pulse Resp BP Pulse Ox 99.1 F 98 H 18 185/85 95 02/06/19 01:20 02/06/19 01:20 02/06/19 01:20 02/06/19 01:20 02/06/19 01:20 General appearance: no acute distress HEENT: Positive: PERRL, Normocephaly, Mucus Membranes Moist Neck: Positive: neck supple, trachea midline Cardiac: Positive: Reg Rate and Rhythm, S1/S2 Lungs: Positive: Decreased Breath Sounds Neuro: Positive: Grossly Intact Abdomen: Negative: Tender Skin: Negative: Rash Musculoskeletal: No Pain Extremities: Absent: edema Results 02/06/19 03:29 02/07/19 04:39 Comprehensive Metabolic Panel 02/07/19 Range/Units 04:39 Sodium 134 L (137-145) mmol/L Potassium 4.5 (3.6-5.0) mmol/L Chloride 97.6 L (98-107) mmol/L Carbon Dioxide 22 (22-30) mmol/L BUN 23 H (9-20) mg/dL Creatinine 2.0 H (0.8-1.5) mg/dL Glucose 162 H (75-100) mg/dL Calcium 9.1 (8.4-10.2) mg/dL - Imaging and Cardiology Echo: report reviewed ( 08/2018 showed EF 55%, mild LVH. ) EKG: report reviewed, image reviewed EKG interpretations - Telemetry EKG Rhythm: Sinus Rhythm - EKG Sinus rhythms and dysrhythmias: sinus rhythm Assessment and Plan Pt presented with questionable syncope, he is uncertain if he fell asleep, or if he lost consciousness. Head CT with NAF. Neurology w/u in progress. Echo done 08/2018 showed EF 55%, mild LVH. PET MPI done 01/06/2019 was negative. Tele reviewed - pt in SR with some intermittent sinus tachycardia noted overnight. Check thyroid profile. Cont present cardiac management. Will follow. The patient has been seen in conjunction with Dr. Pratt who agrees with the assessment and plan of care. - Patient Problems (1) Syncope Current Visit: Yes Status: Suspected Qualifiers: Syncope type: unspecified Qualified Code(s): R55 - Syncope and collapse (2) Scalp abrasion Current Visit: Yes Status: Acute Qualifiers: Encounter type: initial encounter Qualified Code(s): S00.01XA - Abrasion of scalp, initial encounter (3) CKD (chronic kidney disease) Current Visit: Yes Status: Chronic Qualifiers: Chronic kidney disease stage: unspecified stage Qualified Code(s): N18.9 - Chronic kidney disease, unspecified (4) HTN (hypertension) Current Visit: Yes Status: Chronic Qualifiers: Hypertension type: unspecified Qualified Code(s): I10 - Essential (primary) hypertension (5) HLD (hyperlipidemia) Current Visit: Yes Status: Chronic Qualifiers: Hyperlipidemia type: mixed hyperlipidemia Qualified Code(s): E78.2 - Mixed hyperlipidemia (6) Diabetes Current Visit: Yes Status: Chronic (7) Chronic venous insufficiency Current Visit: Yes Status: Chronic (8) Sinus tachycardia Current Visit: Yes Status: Acute
[2019-02-07] MEDS: VALSARTAN 40 MG TAB PO SCH (12:10)
[2019-02-07] MEDS: dilTIAZem CD 300 MG CAP PO SCH (12:10)
[2019-02-07] MEDS: cloNIDine 0.1 MG TAB PO SCH (12:11)
[2019-02-07] MEDS: PRAVASTATIN 40 MG TAB PO SCH (12:11)
[2019-02-07] MEDS: ASPIRIN EC 81 MG TAB PO SCH (12:12)
[2019-02-07] MEDS: FAMOTIDINE 10 MG TAB PO SCH (12:12)
[2019-02-07] MEDS: DOCUSATE SODIUM 100 MG CAP PO SCH (12:12)
--- NOTE | 2019-02-07 16:01 | Progress Note ---
Assessment and Plan Patient is a 64 y/o man w/ a h/o DM, CKD, HTN, HLD, who p/w fall and possible loss of consciousness while at [facility]. According to the patient's clinical findings, it is possible that he's had a syncopal event. Alternatively the patient may have fallen asleep and fallen, as he states that he is uncertain if he fell asleep or lost consciousness while sitting on the walker. Plan: 1. Syncope/fall: - CT head unremarkable - Check EEG- pending - Recommend target normal BP, as BP has been elevated. - Recommend further workup of possible cardiogenic causes of syncope per primary team and cardiology - Telemetry monitoring while in house. - Recommend check orthostatic vital signs- pending. - Recommend PT - Will sign off, as I will not be covering neurology service over the weekend. Recommend for neurologist covering weekend to be consulted for further neurologic monitoring/management. - Thank you for allowing me to take part in the care of this patient. Chacorta Maldonado MD Neurology Subjective Date of service: 02/07/19 Principal diagnosis: Syncope Interval history: No acute events overnight. Abdominal pain, nausea/vomiting resolved today. Objective - Exam Narrative Exam: Patient is alert, awake, oriented x4. Follows complex commands. PERRL, EOMI, decreased vision in left eye which is chronic, VFF in right eye, no facial weakness, b/l intact to LT. 5/5 strength in b/l UE and RLE, 3/5 strength in LLE limited due to pain in leg after fall. B/l intact to LT. B/l intact to FTN and HTS. 2+ reflexes throughout. - Vital Sign Vital Signs - 12hr 02/07/19 02/07/19 02/07/19 03:59 10:00 12:10 Temperature 98.0 F Pulse Rate 118 H 111 H 118 H Pulse Rate [ 111 H Apical] Pulse Rate [ 111 H Left Radial] Pulse Rate [ 111 H Right Radial] Respiratory 18 19 Rate Blood Pressure 176/76 176/76 O2 Sat by Pulse 90 98 Oximetry 02/07/19 12:11 Temperature Pulse Rate 118 H Pulse Rate [ Apical] Pulse Rate [ Left Radial] Pulse Rate [ Right Radial] Respiratory Rate Blood Pressure 176/76 O2 Sat by Pulse Oximetry - General Apperance Constitutional: comfortable - EENT EENT: ATNC, PERRL, mucous membranes moist, hearing intact, vision intact - Respiratory Respiratory: lungs clear, normal breath sounds - Cardiovascular Cardiovascular: regular rate, normal S1, normal S2 Extremities: no clubbing, cyanosis - Gastrointestinal Gastrointestinal: normoactive bowel sounds, soft, non-tender - Integumentary Integumentary: normal - Musculoskeletal Musculoskeletal: pain in joint - Psychiatric Psychiatric: mood/affect appropriate - Laboratory Findings CBC and BMP: 02/06/19 03:29 02/07/19 04:39 Abnormal Lab Findings: Abnormal Labs 02/06/19 02/06/19 02/06/19 03:29 03:29 07:18 MCV 95 H [place] % (Auto) 12.7 H [place] # 1.0 H Sodium 130 L Chloride 95.9 L BUN 21 H Creatinine 2.1 H Glucose 54 L POC Glucose 196 H Troponin T 0.039 H Albumin 3.7 L LDL Cholesterol Direct 49 L HDL Cholesterol 30 L 02/06/19 02/06/19 02/06/19 12:59 17:03 22:08 MCV [place] % (Auto) [place] # Sodium Chloride BUN Creatinine Glucose POC Glucose 125 H 117 H 173 H Troponin T Albumin LDL Cholesterol Direct HDL Cholesterol 02/07/19 02/07/19 02/07/19 04:39 07:43 10:49 MCV [place] % (Auto) [place] # Sodium 134 L Chloride 97.6 L BUN 23 H Creatinine 2.0 H Glucose 162 H POC Glucose 141 H Troponin T 0.057 H D Albumin LDL Cholesterol Direct HDL Cholesterol 02/07/19 12:46 MCV [place] % (Auto) [place] # Sodium Chloride BUN Creatinine Glucose POC Glucose 147 H Troponin T Albumin LDL Cholesterol Direct HDL Cholesterol
--- NOTE | 2019-02-07 16:09 | Discharge Summary ---
Providers - Providers Date of Admission: 02/06/19 07:21 Date of discharge: 02/09/19 Attending physician: DELGADO STEVENSON MD 02/06/19 09:14 Consult to Physician [CONS] Routine Comment: Consulting Provider: CODY PATTERSON Physician Instructions: Reason For Exam: fall, syncope 02/06/19 13:42 Physical Therapy Evaluation and Treat [CONS] Routine Comment: Reason For Exam: fall 02/06/19 13:44 Occupational Therapy Evaluate and Treat [CONS] Routine Comment: Reason For Exam: fall 02/07/19 07:41 Consult to Physician [CONS] Routine Comment: Consulting Provider: EVERT BUTLER Physician Instructions: Reason For Exam: syncope Primary care physician: FLOORING GRADER Hospitalization Reason for admission: syncope, Fall Condition: Stable Pertinent studies: CT head, cervical and lumbar spine Hospital course: 64-year-old -[place] male with past medical history significant for diabetes mellitus presented to the emergency department complaining of his CVA last night. Patient fell from his rolling walker and he hit his head. Patient said he lost his consciousness briefly. Patient brought to the emergency department and was evaluated in the emergency department and patient admitted for observation. Patient was sleepy during examination. It head was negative for fracture or hemorrhage. Patient was admitted to the floor, all workup were negative. Patient was evaluated by cardiology and neurology and cleared for discharge. Patient was hemodynamically stable. Patient is homeless and we find him a personal home care and discharged there. Disposition: [place]/[address] Time spent for discharge: 34 minutes - Discharge Diagnoses (1) Dizziness Status: Acute (2) Elevated troponin Status: Acute (3) Scalp abrasion Status: Acute Qualifiers: Encounter type: initial encounter Qualified Code(s): S00.01XA - Abrasion of scalp, initial encounter (4) Diabetes Status: Chronic (5) HTN (hypertension) Status: Chronic Qualifiers: Hypertension type: unspecified Qualified Code(s): I10 - Essential (primary) hypertension Core Measure Documentation - Palliative Care Palliative Care/ Comfort Measures: Not Applicable - Core Measures Any of the following diagnoses?: none Exam - Physical Exam Narrative exam: Not in cardiopulmonary distress. The patient is obese. Vital signs as documented. Head exam some bruise in the head. No scleral icterus . Neck is without jugular venous distension, thyromegaly, or carotid bruits. Lungs are clear to auscultation. Cardiac exam reveals regular rate and Rhythm. Abdominal exam reveals normal bowel sounds. Extremities are nonedematous and both femoral and pedal pulses are normal. EXPERIMENTAL PSYCHOLOGIST: Alert and oriented 3. No focal weakness. - Constitutional Vitals: Temp Pulse Resp BP Pulse Ox 98.0 F 118 H 19 176/76 98 02/07/19 03:59 02/07/19 12:11 02/07/19 10:00 02/07/19 12:11 02/07/19 10:00 Plan Activity: advance as tolerated Weight Bearing Status: Weight Bear as Tolerated Diet: low salt, diabetic Follow up with: PRIMARY CARE, [Primary Care Provider] - 3-5 Days
--- NOTE | 2019-02-07 16:14 | Progress Note ---
Assessment and Plan Assessment and plan: Fall - Patient fell last night and hit his head - Work up is negative for acute fracture - Need PT/OT evaluation Diabetes mellitus - Sliding-scale insulin, Accu-Chek, ADA diet, adjust insulin as needed Hypertension - Resume home medication - monitor and ajust as needed Acute renal failure - Creatinine this morning was 2.1 - We'll monitor, if no improvement, will consult nephrology Elevated troponin - In the setting of renal failure and uncontrolled hypertension - She didn't have any chest pain, EKG no STEMI - No workup is needed - Cardiology saw him DVT prophylaxis - Heparin Disposition - Patient is medically stable for DC. CM is working to find a snf for him. Patient is homeless. - Patient Problems (1) Dizziness Current Visit: Yes Status: Acute (2) Elevated troponin Current Visit: Yes Status: Acute (3) Scalp abrasion Current Visit: Yes Status: Acute Qualifiers: Encounter type: initial encounter Qualified Code(s): S00.01XA - Abrasion of scalp, initial encounter (4) Diabetes Current Visit: Yes Status: Chronic (5) HTN (hypertension) Current Visit: Yes Status: Chronic Qualifiers: Hypertension type: unspecified Qualified Code(s): I10 - Essential (primary) hypertension History Interval history: patient was seen and evaluated this morning. patient didn't have any complaints. PT/OT evaluated and no needs. Hospitalist Physical - Physical exam Narrative exam: Not in cardiopulmonary distress. The patient is obese. Vital signs as documented. Head exam some bruise in the head. No scleral icterus . Neck is without jugular venous distension, thyromegaly, or carotid bruits. Lungs are clear to auscultation. Cardiac exam reveals regular rate and Rhythm. Abdominal exam reveals normal bowel sounds. Extremities are nonedematous and both femoral and pedal pulses are normal. LAND ECONOMIST: Alert and oriented 3. No focal weakness. - Constitutional Vitals: Temp Pulse Resp BP Pulse Ox 98.0 F 118 H 19 176/76 98 02/07/19 03:59 02/07/19 12:11 02/07/19 10:00 02/07/19 12:11 02/07/19 10:00 General appearance: Present: no acute distress Results - Labs CBC & Chem 7: 02/06/19 03:29 02/07/19 04:39 Labs: Laboratory Last Values WBC 7.6 K/mm3 (4.5-11.0) 02/06/19 03:29 RBC 4.04 M/mm3 (3.65-5.03) 02/06/19 03:29 Hgb 12.9 gm/dl (11.8-15.2) 02/06/19 03:29 Hct 38.4 % (35.5-45.6) 02/06/19 03:29 MCV 95 fl (84-94) H 02/06/19 03:29 MCH 32 pg (28-32) 02/06/19 03:29 MCHC 34 % (32-34) 02/06/19 03:29 RDW 13.7 % (13.2-15.2) 02/06/19 03:29 Plt Count 268 K/mm3 (140-440) 02/06/19 03:29 Lymph % (Auto) 16.7 % (13.4-35.0) 02/06/19 03:29 [place] % (Auto) 12.7 % (0.0-7.3) H 02/06/19 03:29 Eos % (Auto) 1.0 % (0.0-4.3) 02/06/19 03:29 Baso % (Auto) 0.6 % (0.0-1.8) 02/06/19 03:29 Lymph # 1.3 K/mm3 (1.2-5.4) 02/06/19 03:29 [place] # 1.0 K/mm3 (0.0-0.8) H 02/06/19 03:29 Eos # 0.1 K/mm3 (0.0-0.4) 02/06/19 03:29 Baso # 0.0 K/mm3 (0.0-0.1) 02/06/19 03:29 Seg Neutrophils % 69.0 % (40.0-70.0) 02/06/19 03:29 Seg Neutrophils # 5.3 K/mm3 (1.8-7.7) 02/06/19 03:29 Sodium 134 mmol/L (137-145) L 02/07/19 04:39 Potassium 4.5 mmol/L (3.6-5.0) 02/07/19 04:39 Chloride 97.6 mmol/L (98-107) L 02/07/19 04:39 Carbon Dioxide 22 mmol/L (22-30) 02/07/19 04:39 19 mmol/L 02/07/19 04:39 BUN 23 mg/dL (9-20) H 02/07/19 04:39 2.0 mg/dL (0.8-1.5) H 02/07/19 04:39 Estimated GFR 41 ml/min 02/07/19 04:39 12 % 02/07/19 04:39 Glucose 162 mg/dL (75-100) H 02/07/19 04:39 POC Glucose 147 (70-105) H 02/07/19 12:46 Calcium 9.1 mg/dL (8.4-10.2) 02/07/19 04:39 0.30 mg/dL (0.1-1.2) 02/06/19 03:29 AST 25 units/L (5-40) 02/06/19 03:29 ALT 15 units/L (7-56) 02/06/19 03:29 80 units/L (35-129) 02/06/19 03:29 0.057 ng/mL (0.00-0.029) H D 02/07/19 10:49 7.6 g/dL (6.3-8.2) 02/06/19 03:29 3.7 g/dL (3.9-5) L 02/06/19 03:29 0.9 % 02/06/19 03:29 Triglycerides 71 mg/dL (2-149) 02/06/19 03:29 Cholesterol 89 mg/dL (50-199) 02/06/19 03:29 49 mg/dL (50-130) L 02/06/19 03:29 30 mg/dL (40-59) L 02/06/19 03:29 2.96 % 02/06/19 03:29 Plasma/Serum Alcohol < 0.01 % (0-0.07) 02/06/19 03:29 Active Medications - Current Medications Current Medications: Generic Name Dose Route Start Last Admin Trade Name Freq PRN Reason Stop Dose Admin Acetaminophen 650 mg 02/06/19 14:22 Tylenol PO Q4H PRN Pain MILD(1-3)/Fever >100.5/WADE Acetaminophen/Hydrocodone Bitart 1 each 02/06/19 10:30 02/07/19 08:55 [place] 10/325 PO 1 each Q8HR PRN Administration Pain , Severe (7-10) Aspirin 81 mg 02/06/19 11:00 02/07/19 12:12 Halfprin Ec PO 81 mg DAILY TIGIST Administration Clonidine HCl 0.1 mg 02/06/19 15:00 02/07/19 12:11 Catapres PO 0.1 mg Q12HR TIGIST Administration Diltiazem HCl 300 mg 02/06/19 16:00 02/07/19 12:10 Cardizem Cd PO 300 mg QDAY TIGIST Administration Docusate Sodium 100 mg 02/06/19 22:00 02/07/19 12:12 Colace PO 100 mg BID TIGIST Administration Famotidine 10 mg 02/06/19 22:00 02/07/19 12:12 Pepcid PO 10 mg BID TIGIST Administration Heparin Sodium (Porcine) 5,000 unit 02/06/19 22:00 02/07/19 13:04 Heparin SUB-Q 5,000 unit Q8HR TIGIST Administration Hydralazine HCl 20 mg 02/06/19 14:26 02/07/19 04:07 Apresoline IV 20 mg Q4HR PRN Administration Hypertension Metoclopramide HCl 10 mg 02/06/19 18:55 02/06/19 22:32 Reglan IV 10 mg Q6H PRN Administration Nausea And Vomiting Ondansetron HCl 4 mg 02/06/19 22:29 02/07/19 00:00 Zofran IV 4 mg Q4H PRN Administration Nausea And Vomiting Oxycodone/Acetaminophen 1 tab 02/06/19 14:22 02/07/19 15:16 Percocet 5/325 PO 1 tab Q6H PRN Administration Pain, Moderate (4-6) Pravastatin Sodium 40 mg 02/06/19 11:00 02/07/19 12:11 Pravachol PO 40 mg DAILY TIGIST Administration Sodium Chloride 10 ml 02/06/19 15:00 02/07/19 12:12 Sodium Chloride Flush Syringe 10 Ml IV 10 ml BID TIGIST Administration Sodium Chloride 10 ml 02/06/19 14:22 Sodium Chloride Flush Syringe 10 Ml IV PRN PRN LINE FLUSH Valsartan 80 mg 02/06/19 14:00 02/07/19 12:10 Diovan PO 80 mg QDAY TIGIST Administration Zolpidem Tartrate 5 mg 02/06/19 14:22 Ambien PO QHS PRN Insomnia
--- NOTE | 2019-02-07 18:48 | Electroencephalogram Report ---
Electroencephalogram EEG Date of exam: 02/07/19 History: Patient is a 64 y/o man w/ a h/o DM, CKD, HTN, HLD, who p/w fall and possible loss of consciousness while at [facility]. Impression: 1. No seizure or epileptiform activity noted during EEG recording. 2. Normal sleep pattern noted during EEG. Description: The waking background shows an appropriate organization with well-defined anterior posterior voltage and frequency gradients. Posteriorly, there is a well-developed alpha rhythm of [8-9] Hz which is symmetrical and bilaterally reactive. Anteriorly, there is a pattern of lower voltage and slightly irregular theta and beta range frequencies. During drowsiness, there is attenuation of the background rhythms. The sleep background shows normal organization with well-formed sleep spindles and vertex waves which are synchronous and symmetrical. Throughout, the recording there are no epileptiform abnormalities, focal or lateralizing features, or significant interhemispheric findings. Interpretation: A normal EEG does not rule out diagnosis of epilepsy. Clinical correlation required.
== END 2019-02-07 17:43 ==
LOC: ED 00:53 → 4A 07:21
PROVIDERS: ADMIT Internal Medicine; ATTEND Internal Medicine
DX: R42 Dizziness and giddiness (principal); R74.8 Abnormal levels of other serum enzymes; I10 Essential (primary) hypertension; E11.9 Type 2 diabetes mellitus without complications; S00.01XA Abrasion of scalp, initial encounter; W19.XXXA Unspecified fall, initial encounter; Y93.89 Activity, other specified; Y92.89 Other specified places as the place of occurrence of the external cause; Y99.8 Other external cause status
CPT/HCPCS: 36415; 70450; 71046; 72125; 72131; 80048; 80053; 80061; 82962; 84484; 85025; 93005; 93010; 95819; 96372; 96374; 96375; 96376; 97161; 97165; 99284; A9270; G0378; J0360; J1644; J2405; J2765; J7030; 80320; G0480

== ENCOUNTER 2019-02-16 01:50 | Emergency (ER) | payer MEDICARE ==
--- NOTE | 2019-02-16 03:11 | Emergency Department Report ---
<MYKELERICMARICRUZ JulissaMariama - Last Filed: 02/16/19 03:25> ED Dizziness HPI - General Chief Complaint: Weakness Stated Complaint: WEAKNESS Time Seen by Provider: 02/16/19 02:24 Source: patient, EMS Mode of arrival: Wheelchair Limitations: Physical Limitation - History of Present Illness Initial Comments: 64-year-old male presents to ED with complaint of dizziness. Patient states he is at [employer] station and decided to call EMS to transport him to the emergency room. Patient states the dizziness has now resolved. He figured that the dizziness as if his blood pressure being elevated. Patient states he is compliant with his blood pressure medication. Patient is also complaining of chronic back pain. Denies any change in the character of his pain. He states it "always there." Currently has a bottle of hydrocodone 10 mg tabs with him in his bag. Patient states he is homeless and that he lives out of his car. Patient denies headache, chest pain, shortness of breath. Patient denies any alcohol or drug use. MD Complaint: dizziness -: This morning Timing: unsure History of Trauma: No Severity: mild Improves With: nothing Worsens With: nothing Associated Symptoms: denies: chest pain, shortness of breath - Related Data Home Medications Medication Instructions Recorded Confirmed Last Taken dilTIAZem CD [Cardizem CD] 320 mg PO QDAY 03/12/14 02/07/19 02/19/17 07:30 Aspirin [Adult Low Dose Aspirin EC] 81 mg PO DAILY 02/14/17 02/07/19 02/14/17 11:00 Simvastatin (Nf) [Zocor TAB] 20 mg PO DAILY 02/19/17 02/07/19 02/19/17 07:30 HYDROcodone/APAP 10-325 [[place] 1 tab PO Q8HR PRN 01/07/19 02/07/19 Unknown 10-325 mg TAB] Pregabalin [Lyrica] 1 tab PO BID 01/07/19 02/07/19 Unknown Tradjenta 50 tab PO QAM 01/07/19 02/07/19 Unknown Valsartan [Diovan] 1 tab PO DAILY 01/07/19 02/07/19 Unknown traZODone [Desyrel] 1 tab PO HS 01/07/19 02/07/19 Unknown Previous Rx's Medication Instructions Recorded Last Taken Type cloNIDine [Catapres] 0.2 mg PO BID #30 tablet 02/23/17 Unknown Rx Allergies Allergy/AdvReac Type Severity Reaction Status Date / Time No Known Drug Allergies Allergy n/a Verified 03/20/14 08:26 ED Review of Systems Comment: All other systems reviewed and negative Constitutional: denies: fever Respiratory: denies: shortness of breath Cardiovascular: denies: chest pain Neurological: denies: headache ED Past Medical Hx - Past Medical History Previous Medical History?: Yes Hx Hypertension: Yes (2008) Hx Congestive Heart Failure: No Hx Diabetes: Yes Hx Arthritis: No Hx Asthma: No Hx COPD: No - Surgical History Past Surgical History?: Yes Additional Surgical History: R leg surgery 01-13-2018 - Social History Smoking Status: Former Smoker Substance Use Type: None - Medications Home Medications: Home Medications Medication Instructions Recorded Confirmed Last Taken Type dilTIAZem CD [Cardizem CD] 320 mg PO QDAY 03/12/14 02/07/19 02/19/17 07:30 History Aspirin [Adult Low Dose Aspirin EC] 81 mg PO DAILY 02/14/17 02/07/19 02/14/17 11:00 History Simvastatin (Nf) [Zocor TAB] 20 mg PO DAILY 02/19/17 02/07/19 02/19/17 07:30 History cloNIDine [Catapres] 0.2 mg PO BID #30 tablet 02/23/17 02/07/19 Unknown Rx HYDROcodone/APAP 10-325 [[place] 1 tab PO Q8HR PRN 01/07/19 02/07/19 Unknown History 10-325 mg TAB] Pregabalin [Lyrica] 1 tab PO BID 01/07/19 02/07/19 Unknown History Tradjenta 50 tab PO QAM 01/07/19 02/07/19 Unknown History Valsartan [Diovan] 1 tab PO DAILY 01/07/19 02/07/19 Unknown History traZODone [Desyrel] 1 tab PO HS 01/07/19 02/07/19 Unknown History ED Physical Exam - General Limitations: Physical Limitation General appearance: alert, in no apparent distress - Head Head exam: Present: atraumatic, normocephalic - Eye Eye exam: Present: normal appearance - ENT ENT exam: Present: mucous membranes moist - Neck Neck exam: Present: normal inspection - Respiratory Respiratory exam: Present: normal lung sounds bilaterally. Absent: respiratory distress - Cardiovascular Cardiovascular Exam: Present: regular rate, normal rhythm - GI/Abdominal GI/Abdominal exam: Absent: distended - Extremities Exam Extremities exam: Present: pedal edema, other (chronic skin changes apparent to BLE) - Neurological Exam Neurological exam: Present: alert, oriented X3, CN II-XII intact. Absent: motor sensory deficit - Psychiatric Psychiatric exam: Present: normal affect, normal mood - Skin Skin exam: Present: warm, dry, intact, normal color ED Medical Decision Making - Medical Decision Making Patient refuses workup. Will be leaving AMA. AMA form signed. ED Disposition Clinical Impression: Hypoglycemia associated with type 2 diabetes mellitus Disposition: - TO HOME OR SELFCARE Is pt being admited?: No Condition: Stable Instructions: Diabetes Mellitus Type 2 in Adults (ED) Additional Instructions: Make sure that you eat enough food before taking your insulin. Follow-up with your primary care physician in 2 days for reevaluation. Return to the ED immediately if symptoms get worse. Referrals: HERNANDO YANEZ MD [Primary Care Provider] - 3-5 Days Forms: AMA Form Time of Disposition: 03:26 Print Language: UKRAINIAN <SANTOS GUIDRY - Last Filed: 02/16/19 06:00> ED Review of Systems ROS: Stated complaint: WEAKNESS Other details as noted in HPI ED Course Vital Signs 02/16/19 01:57 Temperature 97.4 F L Pulse Rate 72 Respiratory 16 Rate Blood Pressure 153/83 O2 Sat by Pulse 95 Oximetry - Reevaluation(s) Reevaluation #1: 02/16/19 05:45 This 64-year-old male with a history of [id number] diabetes and hypertension presented to the ED with dizziness and generalized weakness. Lab test results were reviewed and showed acute hypoglycemia 30 mg/dL. Other lab test results included BUN of 22 and creatinine of 2.3, which are all baseline and chronic. Patient received meal tray in the ED and was also treated with an ampoule of D50 IV 1. Patient was given crackers to eat as well. On reevaluation, patient's [id number] glucose after treatment was 163 mg/dL. Patient is resting comfortably on the bed and is in no acute distress. ED Medical Decision Making - Lab Data Result diagrams: 02/16/19 03:16 02/16/19 03:16 Critical care attestation.: If time is entered above; I have spent that time in minutes in the direct care of this critically ill patient, excluding procedure time. ED Disposition Is pt being admited?: No Does the pt Need Aspirin: No Time of Disposition: 05:48
[2019-02-16 03:53] LABS: Calcium 9.2 mg/dL (8.4-10.2)
[2019-02-16 03:55] LABS: Basophils # (Auto) 0.1 K/mm3 (0.0-0.1); Basophils % (Auto) 0.8 % (0.0-1.8); Eosinophils % (Auto) 0.7 % (0.0-4.3); Hematocrit 39.7 % (35.5-45.6); Hemoglobin 13.5 gm/dl (11.8-15.2); Lymphocytes # (Auto) 1.1 K/mm3 (1.2-5.4); Lymphocytes % (Auto) 14.9 % (13.4-35.0); Mean Corpuscular HGB Conc 34 % (32-34); Mean Corpuscular Volume 94 fl (84-94); Monocytes # (Auto) 0.8 K/mm3 (0.0-0.8); Monocytes % (Auto) 11.5 % (0.0-7.3); Platelet Count 360 K/mm3 (140-440); Red Blood Count 4.22 M/mm3 (3.65-5.03)
[2019-02-16] MEDS ORDERED: DEXTROSE 50% IN WATER (25GM) 50 ML SYRINGE IV ONE (04:01)
[2019-02-16 04:57] LABS: Bilirubin,Urine NEG (Negative); Blood,Urine NEG (Negative); Color,Urine Yellow (Yellow); Mucus,Urine FEW /HPF; WBC,Urine < 1.0 /HPF (0.0-6.0)
[2019-02-16 06:18] VITALS: BP 189/95
== END 2019-02-16 06:40 | disposition home or self-care (01) ==
LOC: ED 01:50
DX: E11.649 Type 2 diabetes mellitus with hypoglycemia without coma (principal); I10 Essential (primary) hypertension; Z79.4 Long term (current) use of insulin; Z98.890 Other specified postprocedural states; Z87.891 Personal history of nicotine dependence; Z79.82 Long term (current) use of aspirin
CPT/HCPCS: 36415; 80048; 80320; 81001; 82962; 85025; 96374; 99284; G0480

== ENCOUNTER 2019-03-10 13:42 | Outpatient (CLI) | payer MEDICARE ==
--- NOTE | 2019-03-10 15:34 | Vascular Lab Report ---
CLINICAL DATA: R60.9)Edema, unspecified/N18.4 TECHNICAL DATA: Imaging was performed from the internal jugular vein extending throughout upper extremity venous syst em using duplex sonography and color flow imaging. FINDINGS: There is normal compressibility of the internal jugular vein with normal flow characteristics. The angulo bclavian vein and innominate vein demonstrate normal flow characteristics. The axillary vein, brachial vein, ulnar vein and radial veins are compressible throughout their cours e. No intraluminal echogenicity to suggest deep venous thrombosis. Color flow imaging demonstrates no rmal augmentation. The superficial venous system including the basilic vein and cephalic vein are compressible throughou t course. IMPRESSION: Normal imaging of the right upper extremity venous system using duplex sonography and color-flow imag ing. Signer Name: Pratik Madrid MD Signed: 03/10/2019 3:30 PM Workstation Name: [id number]
== END 2019-03-10 13:43 | disposition home or self-care (01) ==
LOC: VAS 13:42
PROVIDERS: ATTEND Internal Medicine Nephrology
DX: I12.9 Hypertensive chronic kidney disease with stage 1 through stage 4 chronic kidney disease, or unspecified chronic kidney disease (principal); N18.4 Chronic kidney disease, stage 4 (severe); E08.22 Diabetes mellitus due to underlying condition with diabetic chronic kidney disease; R60.9 Edema, unspecified; E78.5 Hyperlipidemia, unspecified

== ENCOUNTER 2019-05-05 13:10 | Outpatient (CLI) | payer MEDICARE ==
[2019-05-05 13:53] LABS: Hematocrit 40.3 % (35.5-45.6); Mean Corpuscular HGB Conc 32 % (32-34); Mean Corpuscular Volume 91 fl (84-94); Platelet Count 267 K/mm3 (140-440); Red Blood Count 4.42 M/mm3 (3.65-5.03); Red Cell Distribution Width 15.5 % (13.2-15.2)
[2019-05-05 14:05] LABS: Creatinine,Urine 111.5 mg/dL (0.1-20.0)
[2019-05-05 14:20] LABS: Microalbumin/Creatinine Ratio 1615.2 ug/mg; Protein/Creatinine Ratio,Urine 2.13
[2019-05-05 14:26] LABS: Albumin 3.8 g/dL (3.9-5); Calcium 9.3 mg/dL (8.4-10.2)
== END 2019-05-05 13:11 | disposition home or self-care (01) ==
LOC: LAB 13:10
PROVIDERS: ATTEND Internal Medicine Nephrology
DX: I12.9 Hypertensive chronic kidney disease with stage 1 through stage 4 chronic kidney disease, or unspecified chronic kidney disease (principal); E08.22 Diabetes mellitus due to underlying condition with diabetic chronic kidney disease; N18.3 Chronic kidney disease, stage 3 (moderate); R22.31 Localized swelling, mass and lump, right upper limb; Z79.899 Other long term (current) drug therapy
CPT/HCPCS: 36415; 80048; 82040; 82043; 82570; 83880; 84100; 84156; 85027; 87086

== ENCOUNTER 2019-08-03 23:21 | Emergency (ER) | payer MEDICARE ==
[2019-08-04 02:05] VITALS: BP 155/101
--- NOTE | 2019-08-04 02:06 | Emergency Department Report ---
ED General Adult HPI - General Chief complaint: Weakness Stated complaint: WEAKNESS Time Seen by Provider: 08/04/19 01:54 Source: EMS Mode of arrival: Stretcher Limitations: No Limitations - History of Present Illness Initial comments: Patient is 64 years old male with history of hypertension diabetes and arthritis. Patient is using a walker. Patient brought to the emergency room via EMS from a gas station. Patient stated that he went to get a coffee and his knee gave up on him. Patient stated that he did not want to come to the ER but the EMS brought him anyway. Patient denied any headache, neck pain, back pain, generalized weakness numbness or tingling sensation. No bowel or bladder incontinence. Patient also denied any fever or chills. - Related Data Home Medications Medication Instructions Recorded Confirmed Last Taken dilTIAZem CD [Cardizem CD] 320 mg PO QDAY 03/12/14 02/07/19 02/19/17 07:30 Aspirin [Adult Low Dose Aspirin EC] 81 mg PO DAILY 02/14/17 02/07/19 02/14/17 11:00 Simvastatin (Nf) [Zocor TAB] 20 mg PO DAILY 02/19/17 02/07/19 02/19/17 07:30 HYDROcodone/APAP 10-325 [[place] 1 tab PO Q8HR PRN 01/07/19 02/07/19 Unknown 10-325 mg TAB] Pregabalin [Lyrica] 1 tab PO BID 01/07/19 02/07/19 Unknown Tradjenta 50 tab PO QAM 01/07/19 02/07/19 Unknown Valsartan [Diovan] 1 tab PO DAILY 01/07/19 02/07/19 Unknown traZODone [Desyrel] 1 tab PO HS 01/07/19 02/07/19 Unknown Previous Rx's Medication Instructions Recorded Last Taken Type cloNIDine [Catapres] 0.2 mg PO BID #30 tablet 02/23/17 Unknown Rx Benzonatate [Tessalon Perles] 100 mg PO Q8HR PRN #20 capsule 05/11/19 Unknown Rx Allergies Allergy/AdvReac Type Severity Reaction Status Date / Time No Known Drug Allergies Allergy n/a Verified 05/11/19 14:55 ED Review of Systems ROS: Stated complaint: WEAKNESS Other details as noted in HPI Comment: All other systems reviewed and negative Constitutional: denies: chills, fever Respiratory: denies: cough, shortness of breath, SOB with exertion, SOB at rest, wheezing Cardiovascular: denies: chest pain, palpitations Gastrointestinal: denies: abdominal pain, nausea, vomiting Neurological: denies: headache, weakness, numbness, paresthesias, confusion ED Past Medical Hx - Past Medical History Previous Medical History?: Yes Hx Hypertension: Yes (2008) Hx Congestive Heart Failure: No Hx Diabetes: Yes Hx Arthritis: No Hx Asthma: No Hx COPD: No - Surgical History Past Surgical History?: Yes Additional Surgical History: R leg surgery 01-13-2018 - Social History Smoking Status: Never Smoker Substance Use Type: None - Medications Home Medications: Home Medications Medication Instructions Recorded Confirmed Last Taken Type dilTIAZem CD [Cardizem CD] 320 mg PO QDAY 03/12/14 02/07/19 02/19/17 07:30 History Aspirin [Adult Low Dose Aspirin EC] 81 mg PO DAILY 02/14/17 02/07/19 02/14/17 11:00 History Simvastatin (Nf) [Zocor TAB] 20 mg PO DAILY 02/19/17 02/07/19 02/19/17 07:30 History cloNIDine [Catapres] 0.2 mg PO BID #30 tablet 02/23/17 02/07/19 Unknown Rx HYDROcodone/APAP 10-325 [[place] 1 tab PO Q8HR PRN 01/07/19 02/07/19 Unknown History 10-325 mg TAB] Pregabalin [Lyrica] 1 tab PO BID 01/07/19 02/07/19 Unknown History Tradjenta 50 tab PO QAM 01/07/19 02/07/19 Unknown History Valsartan [Diovan] 1 tab PO DAILY 01/07/19 02/07/19 Unknown History traZODone [Desyrel] 1 tab PO HS 01/07/19 02/07/19 Unknown History Benzonatate [Tessalon Perles] 100 mg PO Q8HR PRN #20 capsule 05/11/19 Unknown Rx ED Physical Exam - General Limitations: No Limitations General appearance: alert, in no apparent distress - Head Head exam: Present: atraumatic, normocephalic, normal inspection - Eye Eye exam: Present: normal appearance - ENT ENT exam: Present: normal exam, normal orophraynx, mucous membranes moist - Neck Neck exam: Present: normal inspection, full ROM. Absent: tenderness, meningismus, lymphadenopathy, thyromegaly - Respiratory Respiratory exam: Present: normal lung sounds bilaterally - Cardiovascular Cardiovascular Exam: Present: regular rate, normal rhythm, normal heart sounds - GI/Abdominal GI/Abdominal exam: Present: soft, normal bowel sounds. Absent: distended, tenderness, guarding, rebound, rigid, pulsatile mass, hernia - Extremities Exam Extremities exam: Present: normal inspection, full ROM, normal capillary refill. Absent: pedal edema, calf tenderness - Back Exam Back exam: Present: normal inspection, full ROM. Absent: CVA tenderness (R), CVA tenderness (L) - Neurological Exam Neurological exam: Present: alert, oriented X3, CN II-XII intact. Absent: motor sensory deficit - Psychiatric Psychiatric exam: Present: normal mood - Skin Skin exam: Present: warm, intact, normal color ED Course Vital Signs 08/04/19 01:49 Temperature 98.8 F Pulse Rate 96 H Respiratory 18 Rate Blood Pressure 155/101 [left arm] O2 Sat by Pulse 98 Oximetry ED Medical Decision Making - Lab Data Result diagrams: 08/04/19 02:47 08/04/19 02:47 - Medical Decision Making Patient is 64 years old male with history of hypertension diabetes and arthritis. Patient is using a walker. Patient brought to the emergency room via EMS from a gas station. Patient stated that he went to get a coffee and his knee gave up on him. Patient stated that he did not want to come to the ER but the EMS brought him anyway. Patient denied any headache, neck pain, back pain, generalized weakness numbness or tingling sensation. No bowel or bladder incontinence. Patient also denied any fever or chills. Labs reviewed and is unremarkable. Patient is asking for pain medicine for his knee pain. Patient given prescription for tramadol and Zofran and advised to follow-up with his primary care physician in the next 2 to 3 days and to return to the ER if he develop any new symptoms. Critical care attestation.: If time is entered above; I have spent that time in minutes in the direct care of this critically ill patient, excluding procedure time. ED Disposition Clinical Impression: Weakness, Arthritic-like pain Disposition: - TO HOME OR SELFCARE Is pt being admited?: No Condition: Stable Instructions: Weakness (ED), Osteoarthritis (ED) Referrals: SRAVANI MERRITT [Other] - 3-5 Days
[2019-08-04 03:08] LABS: Basophils % (Auto) 0.5 % (0.0-1.8); Eosinophils # (Auto) 0.1 K/mm3 (0.0-0.4); Eosinophils % (Auto) 1.2 % (0.0-4.3); Hematocrit 42.6 % (35.5-45.6); Hemoglobin 14.2 gm/dl (11.8-15.2); Lymphocytes # (Auto) 1.4 K/mm3 (1.2-5.4); Lymphocytes % (Auto) 18.8 % (13.4-35.0); Mean Corpuscular HGB Conc 33 % (32-34); Mean Corpuscular Volume 92 fl (84-94); Monocytes # (Auto) 0.7 K/mm3 (0.0-0.8); Monocytes % (Auto) 8.7 % (0.0-7.3); Platelet Count 251 K/mm3 (140-440); Red Blood Count 4.61 M/mm3 (3.65-5.03); Red Cell Distribution Width 14.6 % (13.2-15.2)
[2019-08-04 03:26] LABS: Calcium 9.6 mg/dL (8.4-10.2)
== END 2019-08-04 04:14 | disposition home or self-care (01) ==
LOC: ED 23:21
DX: R53.1 Weakness (principal); M25.561 Pain in right knee; I10 Essential (primary) hypertension; E11.9 Type 2 diabetes mellitus without complications
CPT/HCPCS: 36415; 80048; 85025; 99283